=== PATIENT | male | born 1945 | race Caucasian/White ===

== ENCOUNTER 2016-12-06 13:43 | Inpatient (IN) ==
[2016-12-06] MEDS ORDERED: CeFAZolin Pre 2,000 MG/100 ML 2,000 MG/100 ML BAG IVPB ONE (14:17)
[2016-12-06] MEDS ORDERED: Lidocaine 1% 20 ML MDV ID ONE (14:17)
[2016-12-06] MEDS ORDERED: Albuterol 2.5 MG/3 ML NEBULIZER IH ONE (14:17)
[2016-12-06] MEDS ORDERED: Ringers Solution, Lactated 1,000 ML IVC SCH (14:30)
--- NOTE | 2016-12-06 14:54 | Anesthesia Evaluation PreOp ---
Date of Encounter: 12/06/16 Time of Encounter: 14:51 - Past History Planned Operation: Right total Knee revision Cardiac History: HTN, Hyperlipidemia Pulmonary History: Asthma CERTIFIED MEDICATION AIDE History: Denies Any Significant HX, Other (RA) Other Medical History: Diabetes Type II, GERD Anesthesia History: No Prior Anesthetic Complications, Past Anesthesia ( Cervical spine, GB, r. TKR, Tonsillectomy,Trigger finger, Hernia, CTR,) Alcohol Use: none Drug use: none Medications and Allergies Albuterol Sulfate [Albuterol Inhaler] 1 puff IH Q6HR PRN 01/18/16 [History] Allopurinol [Zyloprim 300 MG] 300 mg PO DAILY 01/18/16 [History] Colestipol HCl [Colestid] 1 gm PO DAILY 01/18/16 [History] Gabapentin [Neurontin] 600 mg PO TID 01/18/16 [History] Lisinopril/Hydrochlorothiazide [Zestoretic 20-12.5 mg Tablet] 1 tab PO DAILY 08/25 [History] Meloxicam [Mobic] 15 mg PO DAILY 01/18/16 [History] Metformin HCl [Glucophage] 1,000 mg PO BID 01/18/16 [History] Montelukast [Singulair] 10 mg PO HS 01/18/16 [History] Omeprazole [PriLOSEC] 40 mg PO BID 01/18/16 [History] Tramadol HCl/Acetaminophen [Ultracet Tablet] 2 each PO Q6H PRN 01/18/16 [History ] Amlodipine [Norvasc] 5 mg PO DAILY 08/21/16 [History] Aspirin 81 mg PO HS 12/06/16 [History] Glimepiride [Amaryl] 2 mg PO BID 12/06/16 [History] Allergies No Known Allergies Allergy (Verified 12/06/16 14:26) - Meds/Allergy Pre-op Review Medications Reviewed: Yes Allergies Reviewed: Yes Beta Blockers on Current Med List: No Anesthesia Results - Labs Laboratory Tests 12/03/16 12/03/16 12/03/16 11:16 11:16 11:16 WBC 7.2 Hgb 12.1 L Hct 36.6 L Plt Count 317 INR 1.0 Sodium 139 Potassium 3.8 Chloride 102 Carbon Dioxide 23 BUN 19 Creatinine 0.93 - Imaging EKG: image reviewed (SR) Anesthesia Exam O2 Sat Height 1.78 m Height 1.78 m Height 1.78 m Weight 98.883 kg Weight 98.883 kg Weight 102.058 kg O2 Sat by Pulse Oximetry 98 O2 Sat by Pulse Oximetry 98 Vital Signs Temp Pulse Resp BP Pulse Ox 98.7 F 87 18 134/82 98 12/06/16 14:43 12/06/16 14:43 12/06/16 14:43 12/06/16 14:43 12/06/16 14:43 Height: 5'10'' Weight: 218# NPO (# of Hours): > 8 hrs Pain Scale: 0 Pain Scale Used: Numeric (1 - 10) - HEENT Pupil (Motor): Pupils equal, EOMI Mallampati: II Teeth: Edentulous Denture Type: Upper: Complete, Lower: Complete Oral Opening: Greater than 3 - CERTIFIED MEDICATION AIDE LOC: Oriented CERTIFIED MEDICATION AIDE Motor: Normal RUE, Normal LUE, Normal RLE, Normal LLE, Normal Face CERTIFIED MEDICATION AIDE Sensory: Normal: RUE, LUE, RLE, LLE, Face - Cardiac Rhythm: Regular Murmur: None JVD: No Carotid Bruit: No - Pulmonary Breath Sounds: bilateral Clear Respiratory Effort: Symmetrical Anesthesia Assess/Plan ASA Score: 3 Modified Svitlana Scale for Level of Consciousness: Cooperative, oriented, and tranquil Anesthetic Plan: General, Regional (Right Fem. Nerve block) Monitoring Plan: Standard Monitors Recovery Plan: PACU
--- NOTE | 2016-12-06 14:56 | History & Physical Report ---
Date of Encounter: 12/06/16 Time of Encounter: 14:56 24 Hour HP Update - Instructions Instructions: If the History and Physical is less than 30 days old and was completed prior to A.M. admission and or procedure and has NOT been updated on calendar day of procedure please complete this update prior to performing procedure. - Update Patient reports changes in Medical Condition: No Changes in assessment/condition: No Changes in Medication: No Preop tests/diagnostics Reviewed: Yes Surgery Remains Indicated: Yes Consent for Planned Operative Procedure(s) Verified: Yes - Pre-Operative Checklist Preoperative Checklist Indicated: No Prophylactic Antibiotic Ordered: Yes Is VTE Prophylaxis Indicated?: Yes
[2016-12-06] MEDS ORDERED: Tetracaine/PF 20 MG/2 ML AMPUL SPINA ONE (15:15)
--- NOTE | 2016-12-06 15:32 | Anesthesia Procedures ---
Date of Encounter: 12/06/16 Time of Encounter: 14:50 Procedures: Anesthesia - Nerve Block Procedure Date: 12/06/16 Time: 15:30 Pre-op Diagnosis: Loosening TKA Surgical Procedure: Revision TKA Rt Checklist: Correct Patient Identifier Correct side: Right Blood Thinner: No Monitor Applied: EKG, BP, Pulse Oximetry Supplemental Oxygen via Nasal Cannula (L/min): 2 Sedation: Versed (mg): 2 Sedation: Fentanyl (mcg): 100 Indication: Post Op Analgesia Pre-op Neuro Deficits: No Block Type: Femoral Catheter placed: No Depth at skin (cm): 2 Sterile Technique: Yes Ultrasound used: Yes Anatomy identified: Yes Visual spread of Local: Yes Neuro Stimulation: Yes Nerve Stimulator Range: >0.4 - 0.6 mA Blood on Needle Aspiration: No Smooth Injection of Local: Yes Pain with Injection of Local: No Prep: Chlorhexadine Needle: 22 x 50 mm Stimuplex Local: Tetracaine (40), Other (Bupivacaine 0.5%) Volume (cc): 40 Number of Attempts: 1 Complications: None/effective block Vitals: Vital Signs/O2 Sat/Glucose, Most Current Temp Pulse Resp BP Pulse Ox 12/06/16 14:43 98.7 F 87 18 134/82 98
--- NOTE | 2016-12-06 15:47 | Discharge Summary ---
Date of Encounter: 12/09/16 Time of Encounter: 06:37 - Discharge Medications Home Medications: Albuterol Sulfate [Albuterol Inhaler] 1 puff IH Q6HR PRN 01/18/16 [History] Allopurinol [Zyloprim 300 MG] 300 mg PO DAILY 01/18/16 [History] Colestipol HCl [Colestid] 1 gm PO DAILY 01/18/16 [History] Gabapentin [Neurontin] 600 mg PO TID 01/18/16 [History] Lisinopril/Hydrochlorothiazide [Zestoretic 20-12.5 mg Tablet] 1 tab PO DAILY 08/25 [History] Meloxicam [Mobic] 15 mg PO DAILY 01/18/16 [History] Metformin HCl [Glucophage] 1,000 mg PO BID 01/18/16 [History] Montelukast [Singulair] 10 mg PO HS 01/18/16 [History] Omeprazole [PriLOSEC] 40 mg PO BID 01/18/16 [History] Tramadol HCl/Acetaminophen [Ultracet Tablet] 2 each PO Q6H PRN 01/18/16 [History ] Amlodipine [Norvasc] 5 mg PO DAILY 08/21/16 [History] Aspirin 81 mg PO HS 12/06/16 [History] Enoxaparin [Lovenox] 30 mg SQ Q12HR #20 syr 12/06/16 [Rx] Glimepiride [Amaryl] 2 mg PO BID 12/06/16 [History] OxyCODONE Immed Rel [Roxicodone 5 MG] 5 - 10 mg PO Q6HR PRN #40 tablet 12/06/16 [Rx] Allergies/Adverse Reactions: Allergies No Known Allergies Allergy (Verified 12/06/16 14:26) Labs on day of discharge: Labs from last 24 hours 12/06/16 14:28 POC Glucose 103 H Primary care physician: Carlo Lomax MD - Patient Status Disposition: Home, Self-Care Condition: Good Functional capacity at discharge: uses cane/walker Overall status at discharge: patient is progressing back to baseline - Discharge Instructions Follow Up With: Carlo Lomax MD [Primary Care Provider] - - Hospital Course Hospital course: Mr. Moncada is a 71 year old male The patient had an uneventful postoperative course. They received antibiotics and physical therapy and were discharged in stable condition. There will follow -up in the office in 2 weeks. Lovenox DVT prophylaxis - Time Spent with Patient Total time spent providing and/or coordinating discharge services:
[2016-12-06] MEDS ORDERED: *HR* Propofol 200 MG/20 ML VIAL IVP ONE ×2 (16:09→17:29)
[2016-12-06] MEDS ORDERED: *HR* FentaNYL (PF) 100 MCG/2 ML VIAL ONE ×2 (16:09→16:20)
[2016-12-06] MEDS ORDERED: *HR* Midazolam HCl 2 MG/2 ML VIAL ONE (16:09)
[2016-12-06] MEDS ORDERED: Dexamethasone 4 MG/ML VIAL ONE (16:58)
[2016-12-06] MEDS ORDERED: Ondansetron 4 MG/2 ML VIAL ONE (16:58)
--- NOTE | 2016-12-06 17:58 | Orthopedic Operative Note ---
Date of procedure: 12/06/16 Pre-op diagnosis: Painful hardware of right leg Post-op diagnosis: same Procedure: Procedure: Right revision tibial component Estimated blood loss: 300 cc Hardware: Biomet 71 tibia, xs sleeve, [id number] 14 constrained poly Exam Under anesthesia: Full flexion full extension well-healed incision no swelling or erythema no varus valgus instability Operative procedure: The patient was brought to the operating room and placed on the operating room table. After general anesthesia was administered the operative knee was examined. Findings were noted in the exam under anesthesia. The operative extremity was prepped and draped in sterile surgical fashion. The patient received IV antibiotics prior to skin incision. A standard midline incision was made centered over the patella. The incision was made through the skin and subcutaneous tissue through the old incision. A medial parapatellar tendon approach was performed. Care was taken to preserve tissue along the medial aspect of the patella. And to protect the patella tendon. The deep MCL was released off the medial tibia. The infra patella fat pad was excised. Cultures were obtained as well as Gram stain. The knee was brought into flexion the tibial poly-was removed. The femur was well fixed. Attention was then turned to the tibial component. The tibial component was disruppted with an osteotome and osscilating, it was removed without incident. The tibia was reamed with fluroscopic guidance up to a [id number]. The tibia was then broached to a XS sleeve. and a 71 tibia. Trial had good fit and fixation. Trial reduction revealed full extension and full flexion no varus valgus instability with an 14 constrained poly. Trial components removed knee sat for 2 minutes with a Betadine saline solution. It was irrigated out with pulse irrigation. Components were assembled on the back table. The tibia cemented. The 14 Blanca was seated and secure. The knee had full flexion and full extension and excellent patella tracking no varus valgus instability. After the cement hardened the knee was irrigated out again. The knee was taken through a range of motion had excellent patella tracking. The extensor mechanism was closed with a running #2 Fiberwire suture and a running #2 PDS suture. The deep tissue was irrigated and closed deep with #1 PDS suture superficially with 0 PDS suture. The skin was closed with Dermabond and skin oma. The patient was placed in a sterile dressing and postoperative brace. They were extubated and transferred to recovery room in stable condition. Anesthesia: GETA Surgeon: Jose J Abbott Condition: stable Disposition: PACU
[2016-12-06] MEDS ORDERED: *HR* Enoxaparin 30 MG/0.3 ML SYRINGE SQ SCH (18:00)
[2016-12-06] MEDS: *HR* HYDROmorphone (PF) 1 MG/ML SYRINGE IVP PRN ×2 (18:06→18:19)
[2016-12-06 18:27] LABS: Hematocrit 33.2 % (37.5-50.1); Hemoglobin 10.8 g/dL (12.9-16.9)
--- NOTE | 2016-12-06 18:40 | Anesthesia Evaluation Post Op ---
Date of Encounter: 12/06/16 Time of Encounter: 18:40 - Vital Signs Vital Signs: Vital Signs/O2 Sat/Glucose, Most Current Temp Pulse Resp BP Pulse Ox 12/06/16 18:31 84 16 130/76 98 12/06/16 18:21 89 16 135/83 94 L 12/06/16 18:11 97.2 F L 92 16 138/83 93 L 12/06/16 18:01 101 18 142/87 92 L 12/06/16 17:51 97 18 134/82 96 12/06/16 17:41 97.0 F L 96 16 134/82 96 12/06/16 14:43 98.7 F 87 18 134/82 98 - Lungs Lungs: Clear Ascult./Percussion - Airway Airway: Non-obstructed - Cardiovascular Regular Rate - Mental Status Mental Status: Alert & Oriented, Answers Appropriately - Pain Pain Scale: 0 - Nausea Vomiting Nausea Vomiting: Not Present - Hydration Hydration: Ice chips - Discharge PostOp Status: Transfer Patient to floor
[2016-12-06] MEDS ORDERED: *HR* HYDROmorphone (PF) 1 MG/ML SYRINGE IVP PRN (19:12)
[2016-12-06] MEDS ORDERED: *HR* Dextrose 50 % in Water (Syg) 50 ML SYRINGE IVP PRN (19:12)
[2016-12-06] MEDS ORDERED: TRAMADOL HCL PO PRN (19:12)
[2016-12-06] MEDS ORDERED: MOM Conc 10 ML UD.LIQ PO PRN (19:12)
[2016-12-06] MEDS ORDERED: Sennosides 8.6 MG TABLET PO PRN (19:12)
[2016-12-06] MEDS ORDERED: Ondansetron 4 MG/2 ML VIAL IVP PRN (19:12)
[2016-12-06] MEDS ORDERED: Dextrose Gel 15 GM PO PRN ×2 (19:12)
[2016-12-06] MEDS ORDERED: Temazepam 15 MG CAPSULE PO PRN (19:12)
[2016-12-06] MEDS ORDERED: [UNRECOGNIZED DRUG - OTHER] PO PRN (19:12)
[2016-12-06] MEDS ORDERED: Naloxone 0.4 MG/ML INJ IVP PRN (19:12)
[2016-12-06] MEDS ORDERED: ACETAMINOPHEN PO PRN (19:12)
[2016-12-06] MEDS ORDERED: D5% in Water 1,000 ML IV PRN (19:12)
[2016-12-06] MEDS ORDERED: Acetaminophen 325 MG TABLET PO PRN ×2 (19:12→19:38)
[2016-12-06] MEDS ORDERED: traMADol 50 MG TABLET PO PRN (19:38)
[2016-12-06] MEDS: *HR* Metformin 500 MG TABLET PO SCH (20:51)
[2016-12-06] MEDS: Gabapentin 300 MG CAPSULE PO SCH (20:51)
[2016-12-06] MEDS: Aspirin 81 MG TAB.CHEW PO SCH (20:52)
[2016-12-06] MEDS: *HR* Glimepiride 2 MG TABLET PO SCH (20:52)
[2016-12-06] MEDS: Insulin LISPRO 300 UNITS/3 ML VIAL SQ SCH (20:52)
[2016-12-06] MEDS: Ringers Solution, Lactated 1,000 ML IVC SCH (20:53)
[2016-12-06] MEDS: ceFAZolin 2,000 MG in D5% in Water 100 ML IVPB SCH (23:22)
[2016-12-07] MEDS: *HR* OxyCODONE Immed Rel 5 MG TABLET PO PRN ×5 (02:57→23:03)
[2016-12-07 06:13] LABS: Hematocrit 31.4 % (37.5-50.1); Hemoglobin 10.5 g/dL (12.9-16.9)
[2016-12-07 06:19] LABS: BUN/Creatinine Ratio 15 (6-26); Blood Urea Nitrogen 14 mg/dL (8-26); Calcium 8.6 mg/dL (8.6-10.8); Carbon Dioxide 23 mEq/L (19-29); Chloride 103 mEq/L (98-109); Glucose 188 mg/dL (70-99); Osmolality,Calculated 291 (280-300); Sodium 138 mEq/L (136-145); eGFR For African Americans > 60 (> 60); eGFR For Non-African Americans > 60 (> 60)
[2016-12-07] MEDS: *HR* Enoxaparin 30 MG/0.3 ML SYRINGE SQ SCH ×2 (06:43→17:35)
[2016-12-07] MEDS: ceFAZolin 2,000 MG in D5% in Water 100 ML IVPB SCH (06:44)
[2016-12-07] MEDS: Insulin LISPRO 300 UNITS/3 ML VIAL SQ SCH ×3 (07:44→17:22)
[2016-12-07] MEDS: *HR* Glimepiride 2 MG TABLET PO SCH ×2 (09:23→20:23)
[2016-12-07] MEDS: Lisinopril-HCTZ 20-12.5mg TABLET PO SCH (09:23)
[2016-12-07] MEDS: amLODIPine 5 MG TABLET PO SCH (09:23)
[2016-12-07] MEDS: *HR* Metformin 500 MG TABLET PO SCH ×2 (09:24→20:23)
[2016-12-07] MEDS: Gabapentin 300 MG CAPSULE PO SCH ×3 (09:24→20:23)
[2016-12-07] MEDS: Colestipol Hcl [Colestid] 1 GM PO SCH (09:25)
--- NOTE | 2016-12-07 14:44 | Orthopedics Progress Note ---
Date of Encounter: 12/07/16 Time of Encounter: 14:42 Subjective Principal diagnosis: Right knee painful hardware Interval history: Patient is comfortable without new complaints Right lower extremity: Hinge knee brace intact, locked in full extension Dressings are clean dry intact Bilateral calves soft and nontender Neurovascularly intact distally PLAN Continue elevation Continue OT/PT Objective Vital signs: Vital Signs Temp Pulse Resp BP Pulse Ox 12/07/16 10:14 98.5 F 91 16 104/67 98 12/07/16 09:21 94 105/62 99 12/07/16 04:24 98.3 F 88 12 95/68 97 12/06/16 23:20 99.0 F 100 14 132/81 97 12/06/16 22:22 99.2 F 100 12 132/81 95 12/06/16 21:05 98.9 F 100 12 148/81 96 12/06/16 19:50 99.0 F 95 12 144/82 95 12/06/16 19:32 99.1 F 92 16 144/82 12/06/16 19:20 99.0 F 94 12 117/56 95 12/06/16 18:54 99.3 F 88 16 151/78 93 L 12/06/16 18:41 97.2 F L 88 16 137/87 97 12/06/16 18:31 84 16 130/76 98 12/06/16 18:21 89 16 135/83 94 L 12/06/16 18:11 97.2 F L 92 16 138/83 93 L 12/06/16 18:01 101 18 142/87 92 L 12/06/16 17:51 97 18 134/82 96 12/06/16 17:41 97.0 F L 96 16 134/82 96 12/06/16 14:43 98.7 F 87 18 134/82 98 Intake and Output 12/06/16 12/07/16 12/07/16 23:59 07:59 15:59 Intake Total 1200 / 1200 Output Total 825 / 825 300 / 300 Balance -825 / -825 900 / 900 Intake: IV Fluids 1200 / 1200 Lactated Ringers 1,000 ML 1000 / 1000 @ 75 mls/hr IVC .[id number] [facility] Rx#:[id number] Ancef 2,000 MG In 200 / 200 Dextrose 5% 100 ML @ 200 mls/hr IVPB Q[facility]H [facility] Rx#: [id number] Output: Urine 525 / 525 300 / 300 Estimated Blood Loss 300 / 300 Other: Blood Glucose* 144 126 Incision: clean and dry - Labs CBC & BMP: 12/08/16 04:34 12/08/16 04:34 Labs: Abnormal lab results Hgb 10.5 g/dL (12.9-16.9) L 12/07/16 05:03 Hct 31.4 % (37.5-50.1) L 12/07/16 05:03 Glucose 188 mg/dL (70-99) H 12/07/16 05:03 POC Glucose 144 (58-89) H 12/06/16 20:28 - VTE Documentation of Mechanical Device: Venous foot pump, device Consult Discharge Plan - Plan Referrals: Carlo Lomax MD [Primary Care Provider] - Plan Additional Instructions: Perineal Care: Always wipe front to back Change your pad frequently Use your yu bottle with warm water and spray front to back Do not douche, use tampons, have sexual intercourse or put anything in your vagina for 4-6 weeks after delivery Bleeding: Vaginal bleeding can last up to 6 weeks Your menstrual period may return as early as 6 weeks after you are discharged from the hospital Rawlins/Stitches Care: Vaginal Delivery Vaginal stitches will dissolve within 4-6 weeks Follow perineal care instructions Care Stitches will dissolve on their own If you have oma, they will need to be removed in the doctors office within 5-7 days. You may shower with stitches or oma Drip plan or soapy water over the incision to clean. Pat dry gently with a clean towel. Make sure you completely dry under the skin folds DO NOT USE powders, lotions, rubbing alcohol or hydrogen peroxide on or around your incision. This will slow your wound healing It is normal to have soreness, burning, tingling, itchiness and/or numbness as your incision heals Breast Care: moms: Your breasts may change in size. Wearing a well-fitted bra (with no underwire) day and night may be more comfortable as your body adjusts to these changes Wash breasts with warm water only. Do not use soap or lotion on you nipples should not make your nipples sore. Soreness may be an indication of an incorrect latch If you have nipple pain, open cracks or nipple bleeding, you need to contact a weight loss sales consultant or your physician Bottle Feeding moms: Avoid nipple stimulation, such as a shirt or gown rubbing against them If your breasts become uncomfortable you can try the following: Wear a well-fitting support bra with no underwire day and night until your body adjusts. Lay on your back to elevate the breasts Apply ice packs or frozen bags of vegetables to your breasts for 10- [address] cold clean cabbage leaves on your breast. Change them as they become warm and wilted Activity: Rest frequently Do not lift anything heavier than the baby, up to 10-15 pounds No driving for 1-2 weeks for Vaginal delivery No driving for 2-4 weeks for delivery Take stairs slowly, one at a time Gradually increase your daily activity until you are back to your normal routine Do not exercise until you have had your follow-up appointment Bathing: Take a shower daily Do not take a tub bath for the first 4 weeks Diet: Drink plenty of water and fruit juices Eat a well-balanced diet with foods high in fiber such as fruits and vegetables Breast feeding moms: You will burn approximately 500 calories per day by exclusively . Increase the calories that you will eat by 500-1000 Limit caffeine to 2 or less per day You will need 1,200 mg of calcium per day Depression: Your hormones have a major impact on your feelings and emotions. Hormone imbalance may cause changes in your mood, creating unfamiliar thoughts and actions. Support is available to help you understand and cope with these feelings and mood changes. If you answer yes to any of the following questions, please call your health care provider: Are you having trouble sleeping? Are you feeling isolated? Have you lost your appetite? Are you having thoughts of hurting yourself or your baby? WARNING SIGNS: Heavy bleeding from the vagina (blood is bright red and soaks a sanitary pad in an hour or less.) Passing a blood clot larger than your fist Discharge from the vagina that has a bad odor Temperature over 100.4 F, or if you feel cold and have chills An episiotomy site that is warm, swollen or oozing. Use a mirror if needed Urination (pee) that is painful, very red and swollen or leaking fluid An incision that is painful, very red and swollen and leaking fluid An incision that has come open Breasts that are painful or full with flu like symptoms Redness, warmth or swelling in the calf of your leg Trouble breathing, dizziness, visual disturbance or faintness *Notify your health care provider immediately or go to the nearest Emergency Room if you experience any of the above signs.* To contact the nurses station 24 hours a day, For non-urgent, routine questions, please call the office at Provider discharge summary: Activity: [] Diet: [] Wound Care: [] Special Instructions: [] Follow up with: Carlo Lomax MD [Primary Care Provider] -
[2016-12-07] MEDS: Aspirin 81 MG TAB.CHEW PO SCH (20:23)
[2016-12-07] MEDS: Ringers Solution, Lactated 1,000 ML IVC SCH (23:06)
[2016-12-08] MEDS: *HR* OxyCODONE Immed Rel 5 MG TABLET PO PRN ×4 (04:49→22:43)
[2016-12-08 04:51] LABS: Hemoglobin 10.5 g/dL (12.9-16.9)
[2016-12-08 05:11] LABS: BUN/Creatinine Ratio 16 (6-26); Blood Urea Nitrogen 14 mg/dL (8-26); Calcium 8.9 mg/dL (8.6-10.8); Carbon Dioxide 24 mEq/L (19-29); Chloride 101 mEq/L (98-109); Glucose 128 mg/dL (70-99); Osmolality,Calculated 288 (280-300); Potassium 3.5 mEq/L (3.5-4.5); Sodium 138 mEq/L (136-145); eGFR For African Americans > 60 (> 60); eGFR For Non-African Americans > 60 (> 60)
[2016-12-08] MEDS: *HR* Enoxaparin 30 MG/0.3 ML SYRINGE SQ SCH ×2 (06:56→17:12)
[2016-12-08] MEDS: Insulin LISPRO 300 UNITS/3 ML VIAL SQ SCH ×3 (08:33→17:12)
[2016-12-08] MEDS: Lisinopril-HCTZ 20-12.5mg TABLET PO SCH (08:39)
[2016-12-08] MEDS: *HR* Glimepiride 2 MG TABLET PO SCH ×2 (08:39→20:48)
[2016-12-08] MEDS: amLODIPine 5 MG TABLET PO SCH (08:39)
[2016-12-08] MEDS: Gabapentin 300 MG CAPSULE PO SCH ×3 (08:39→20:48)
[2016-12-08] MEDS: *HR* Metformin 500 MG TABLET PO SCH ×2 (08:40→20:48)
[2016-12-08] MEDS: Colestipol Hcl [Colestid] 1 GM PO SCH (10:56)
--- NOTE | 2016-12-08 13:30 | Orthopedics Progress Note ---
Date of Encounter: 12/08/16 Time of Encounter: 13:29 Subjective Principal diagnosis: Right knee painful hardware Interval history: Patient is comfortable without new complaints Right lower extremity: Hinge knee brace intact, locked in full extension Dressings are clean dry intact Bilateral calves soft and nontender Neurovascularly intact distally Continue OT/PT Continues use of brace Discharge planning for tomorrow Objective Vital signs: Vital Signs Temp Pulse Resp BP Pulse Ox 12/08/16 11:21 99.5 F 106 18 122/63 98 12/08/16 06:39 98.7 F 89 16 124/87 98 12/08/16 04:45 98.7 F 99 12/07/16 23:07 99.1 F 112 20 122/84 93 L 12/07/16 20:28 100.4 F H 118 20 118/63 94 L 12/07/16 16:52 100.4 F H 106 18 107/62 96 Intake and Output 12/07/16 12/08/16 12/08/16 23:59 07:59 15:59 Intake Total 1000 / 1000 Output Total 175 / 175 100 / 100 Balance 825 / 825 -100 / -100 Intake: IV Fluids 1000 / 1000 Lactated Ringers 1,000 ML 1000 / 1000 @ 75 mls/hr IVC .[id number] [facility] Rx#:[id number] Output: Urine 175 / 175 100 / 100 Other: Blood Glucose* 184 103 202 Incision: clean and dry - Labs CBC & BMP: 12/09/16 04:37 12/08/16 04:34 Labs: Abnormal lab results Hgb 10.5 g/dL (12.9-16.9) L 12/08/16 04:34 Hct 32.0 % (37.5-50.1) L 12/08/16 04:34 Glucose 128 mg/dL (70-99) H 12/08/16 04:34 POC Glucose 184 (58-89) H 12/07/16 19:41 - VTE Documentation of Mechanical Device: Venous foot pump, device Consult Discharge Plan - Plan Additional Instructions: Discharge Instructions: Total Knee Replacement Please call [facility] ([phone]), your Primary Care Physician, or report to the Emergency Room if you have any of the following symptoms: Nausea, vomiting, fever greater that 101.5, swelling, chest pain, shortness of breath, increased pain/redness/drainage/odor for your incision site, numbness/ tingling, or any other concerning symptoms. ACTIVITY:Weight-bearing as tolerated. You may progress off support (cruthches or walker) as tolerated. MEDICATIONS: Upon discharge resume your home medications. Take all the medications as prescribed. Take a stool softener if taking narcotic pain medications. Stool softeners are only effective if you drink enough fluids. Drink 6-8 glass of water or fluids a day, unless this is not allowed for another health problem. Despite using stool softeners, if you haven't had a bowel movement in 3 days, please switch to a gentle laxative. Gentle laxatives are sold over the counter. You should have a bowel movement within 24 hours, if not call the office. You will be discharged from the hospital with a prescription for pain medication. You are encouraged to decrease the use of narcotic pain medication as tolerated. Should you require a refill, please call the office. [facility] prescribes narcotic pain medication for only 4-6 weeks after surgery. If you require pain medication beyond this time periord, you may be referred to your Primary Care Physician or to the Pain Clinic for further evaluation. Plan ahead for refills on pain medication as many narcotics either need to be picked up at the office or mailed. It is best to call 48-72 hours in advance of needing a prescription refill so you don't run out of medication. To help control the post-operative pain, you may take NSAIDs (Aleve,Advil, Motrin, ibuprofen, naprosyn) or Tylenol as prescribed on the bottle in addition to the pain medication. ANTICOAGULATION (blood thinners): Continue your Aspirin, Lovenox or Coumadin as prescribed to help prevent a blood clot in the leg or in the lungs. As long as your incision remains dry and you tolerate the NSAIDs (Aleve, Advil, Motrin, ibuprofen, naprosyn), it is OK to use the NSAIDS while you are taking your anticoagulation medication. Should your incision start to drain, stop the NSAID and contact our office. Common symptoms of blood clot in the legs include: localized pain, swelling, calf tenderness, redness or discoloration of the skin. Blood clot in the lung symptoms include: shortness of breath, rapid pulse, sweating, and chest pain that worsens with deep breathing, coughing up blood, lightheadedness, feelings of anxiety. If you experience any of these symptoms notify your physician immediately, go to the emergency room, or if having trouble breathing, call 911. WOUND CARE: Leave the dressing on for 7 days. You may change the dressing if it becomes saturated greater than 50%. You can shower but not a tub bath or submerge your incision in water. Wash your hands with antibacterial soap, rinse and dry prior to any wound care. If you have oma the visiting nurse or rehab facility can remove the stapes 10-14 days after surgery and place steri- strips across the wound. Leave the steri-strips in place until they fall off on their won. You may let water from the shower run on top of the steri-stirips. If you do not have a visiting nurse or rehab facility, you will need to return to the office at 10-14 days for the oma to be removed. FOLLOW-UP: Please follow up with your surgeon in the orthopedic clinic in 4 weeks from the day of surgery. If you have oma that need to be removed, you will need to come back to the office in 10-14 days from the day of surgery. Referrals: Carlo Lomax MD [Primary Care Provider] - Jose J Abbott MD [Partnered Physician] - 12/17/16 2:30 pm
[2016-12-08] MEDS: Aspirin 81 MG TAB.CHEW PO SCH (20:48)
[2016-12-08] MEDS: Ringers Solution, Lactated 1,000 ML IVC SCH (22:41)
[2016-12-09] MEDS: Ringers Solution, Lactated 1,000 ML IVC SCH (05:25)
[2016-12-09] MEDS: *HR* Enoxaparin 30 MG/0.3 ML SYRINGE SQ SCH (06:17)
[2016-12-09 06:23] LABS: Hematocrit 31.4 % (37.5-50.1); Hemoglobin 10.3 g/dL (12.9-16.9)
[2016-12-09] MEDS: *HR* OxyCODONE Immed Rel 5 MG TABLET PO PRN (06:28)
--- NOTE | 2016-12-09 06:39 | Orthopedics Progress Note ---
Date of Encounter: 12/09/16 Time of Encounter: 06:38 Subjective Principal diagnosis: Right knee painful hardware Interval history: Patient was seen this morning doing well without complaints. Afebrile vital signs stable. Operative extremity: Neurovascularly intact Dressing clean dry and intact Calves nontender Assessment and plan: Continue with postoperative care Discharge today Objective Vital signs: Vital Signs Temp Pulse Resp BP Pulse Ox 12/08/16 23:26 97.6 F 103 18 110/67 95 12/08/16 20:23 99.6 F 112 18 112/76 93 L 12/08/16 14:03 104 16 127/68 99 12/08/16 11:21 99.5 F 106 18 122/63 98 12/08/16 06:39 98.7 F 89 16 124/87 98 Intake and Output 12/08/16 12/08/16 12/09/16 15:59 23:59 07:59 Intake Total 275 / 275 125 / 125 Output Total 675 / 675 Balance 275 / 275 -550 / -550 Intake: Oral 275 / 275 125 / 125 Output: Urine 675 / 675 Other: Blood Glucose* 202 166 - Labs CBC & BMP: 12/09/16 04:37 12/08/16 04:34 Labs: Abnormal lab results Hgb 10.3 g/dL (12.9-16.9) L 12/09/16 04:37 Hct 31.4 % (37.5-50.1) L 12/09/16 04:37 Glucose 128 mg/dL (70-99) H 12/08/16 04:34 POC Glucose 184 (58-89) H 12/07/16 19:41 - VTE Documentation of Mechanical Device: Venous foot pump, device Consult Discharge Plan - Plan Referrals: Carlo Lomax MD [Primary Care Provider] -
[2016-12-09 06:40] VITALS: BP 147/78
[2016-12-09] MEDS: Insulin LISPRO 300 UNITS/3 ML VIAL SQ SCH (07:31)
== END 2016-12-09 09:45 | disposition home or self-care (01) | DRG 468 ==
LOC: SAMDAY 13:43 → 3NENU 18:51
PROVIDERS: ADMIT Orthopaedic Surgery; ATTEND Orthopaedic Surgery

== ENCOUNTER 2017-04-11 08:25 | Inpatient (IN) ==
--- NOTE | 2017-04-11 09:04 | Pre-Sedation Evaluation ---
Pre-sedation evaluation - Pre-sedation checklist Date of procedure: 04/11/17 Procedure: [facility] Recent Vitals: VS as documented in EMR H&P (including ROS) documented in medical record: Yes Previous reaction to sedatives/anesthetics: No Dietary Status: NPO after Midnight Airway Assessment: Patient can open mouth completely, TMJ function normal ASA Classification *see protocol: CLASS II-Mild systemic disease Plan of Care: Pt appropriate candidate for procedure/moderate/conscious sedation , Risks/benefits of procedure/sedation discussed w/ patient/family
--- NOTE | 2017-04-11 09:06 | History & Physical Report ---
Date of Encounter: 04/11/17 Time of Encounter: 09:00 24 Hour HP Update - Instructions Instructions: If the History and Physical is less than 30 days old and was completed prior to A.M. admission and or procedure and has NOT been updated on calendar day of procedure please complete this update prior to performing procedure. - Update Patient reports changes in Medical Condition: No Changes in examination, assessment, or condition: No Changes in Medication: No Preop tests/diagnostics Reviewed: Yes Surgery Remains Indicated: Yes Consent for Planned Operative Procedure(s) Verified: Yes
[2017-04-11] MEDS: 0.9 % Sodium Chloride 1,000 ML IVC SCH ×2 (09:39→21:22)
[2017-04-11] MEDS ORDERED: 0.9 % Sodium Chloride 1,000 ML ONE (10:07)
[2017-04-11] MEDS ORDERED: *HR* Heparin 10,000 UNIT/10 ML VIAL ONE (10:07)
[2017-04-11] MEDS ORDERED: Verapamil 5 MG/2 ML VIAL ONE (10:07)
[2017-04-11] MEDS ORDERED: Heparin 1,000 UNITS/500 mL NS 500 ML ONE (10:07)
[2017-04-11] MEDS ORDERED: Nitroglycerin 1,000 MCG/10 ML VIAL IV ONE (10:07)
[2017-04-11] MEDS ORDERED: *HR* Midazolam HCl 5 MG/5 ML VIAL IVP ONE (10:15)
[2017-04-11] MEDS ORDERED: *HR* FentaNYL (PF) 100 MCG/2 ML VIAL ONE (10:15)
--- NOTE | 2017-04-11 11:19 | Invasive Diagnostic Lab Proc ---
Name: Jovi Moncada Date of Study: 04/11/2017 Date: 1945 Ht: 70.0in Medical Record#: [id number] Age: 72 Wt: 233.47lb Gender: Male BSA: 2.23 Order #: [id number] BMI: 33.5 Physicians Procedure Physician: [facility] Referring MD: Carlo Lomax MD Referring MD: Staff Name [facility]-Op Nurse 09:35 AM Sophie Webber RN Pre-Op Nurse 09:35 AM Maddie Parada RT (R) Monitor 10:16 AM Jessica Moreland RN Animal Care Provider 10:16 AM Olena Vela RT Scrub 10:16 AM Indications Indication Abnormal Test - Stress Procedures Performed Procedure L HRT ARTERY/VENTRICLE ANGIO Pre-Procedure Checklist Informed consent is complete signed and on chart. H\\T\\P is on chart. ID band is on and ID verified with patient. Patient NPO for procedure The procedure was described for the patient and questions were answered. Blood Pressure: 134/85 ECG is on chart. Rhythm: NSR Plan of Care Patient will tolerate the procedure without complications. Adequate level of comfort will be maintained. Hemodynamics will remain stable Patient will recover from procedure without complications. Respiratory function will be maintained. Cardiac rhythm will remain stable. Patient temperature will be maintained. Patient and/or family have verbalized understanding of the procedure. Patient Education Chief Complaint/Reason for Test: Cardiac Cath Developmental Category: Geriatric (65+ years) Developmentally Appropriate for Age: Yes Learning Barriers: None Education Needs: Procedure Education Method: Verbal Information Taught: Cardiac Cath Educational Evaluation: Able to repeat information Intravenous Access Time IV Size Location DC'd Fluid/Drip Rate Units RN 09:32 AM Started with 20g 1 1/4" Lt Antecubital 0.9NaCl 50 ml/hr Sophie Webber RN Allergies No Known Allergies Vital Signs Time BP (mmHg) HR (bpm) O2 Sat. RR (bpm) LOC 09:34 AM 134 / 85 70 97 % 16 5 = Fully awake and oriented or at pre-proc level 10:17 AM / % 5 = Fully awake and oriented or at pre-proc level 10:17 AM / % 5 = Fully awake and oriented or at pre-proc level 10:32 AM / % 5 = Fully awake and oriented or at pre-proc level 10:20 AM 166 / 91 69 99 % 16 10:24 AM 159 / 90 64 98 % 9 10:29 AM 151 / 82 62 98 % 31 10:34 AM 150 / 94 65 98 % 19 10:39 AM 145 / 84 63 98 % 31 10:44 AM 157 / 84 73 98 % 7 10:49 AM 153 / 91 70 98 % 9 10:47 AM / % 5 = Fully awake and oriented or at pre-proc level Procedural Medications Time Medication Dose Units Method Given By 10:20 AM Versed 2 mg Intravenous Jessica Moreland RN 10:20 AM Fentanyl 50 mcg Intravenous Jessica Moreland RN 10:35 AM Lidocaine 2% 15 ml Subcutaneous Carlos Mays MD, FACC 10:48 AM Versed 1 mg Intravenous Jessica Moreland RN 10:48 AM Fentanyl 25 mcg Intravenous Jessica Moreland RN 10:28 AM Oxygen 2 L/min nasal cannula Jessica Moreland RN ASA Classification: CLASS II- Mild systemic disease (i.e. well-controlled diabetes, hypertension, asthma, cigarette smoking) Breanna Score Preprocedure Postprocedure Activity 2- Moves 4 extremities sustained head lift Activity 2- Moves 4 extremities sustained head lift Circulation 2- SBP +/= 20 points of pre-anesthetic level Circulation 2- SBP +/= 20 points of pre-anesthetic level Consciousness 2- Awake and alert oriented x 3 Consciousness 2- Awake and alert oriented x 3 O2 Saturation 2- Able to maintain O2 satruation of 92% on room air O2 Saturation 2- Able to maintain O2 satruation of 92% on room air Respiratory 2- Able to deep breathe and cough well Respiratory 2- Able to deep breathe and cough well Total Score 10 Total Score 10 Contrast Agent: Isovue Diagnostic Contrast: 56 ml Total Contrast: 56 ml Fluoro Dose: 278 mGy Procedure Log Time Note Enter By 10:14 AM Case Start 10:14 AM CathStat 10:15 AM Procedure start 10:15 dspellman 10:15 AM Pt arrived to laboratory operations coordinator 2 at 10:15 dspellman 10:15 AM Physician arrived 10:15 dspellman 10:15 AM Orestes and gloria completed dspellman 10:16 AM Sign in performed according to hospital policy. dspellman 10:16 AM Case Delayed No dspellman 10:16 AM Maddie Parada RT (R) Position: Monitor Time in: :16 10:16 AM Jessica Moreland RN Position: Animal Care Provider Time in: 10:16 10:16 AM Olena Vela RT Position: Scrub Time in: 10:16 dspell 10:16 AM Patient charges- Angio tray pack, Navilyst 3mm J, Pulse Oximetry and ACIST tubing and transducer dspell 10:16 AM IV Supplies used: J loop Angio Cath. : AM Time: : Patient comfortable and pain free: Yes AM Time: 10:17LOC: 5 = Fully awake and oriented or at pre-proc level dspell 10:18 AM Vitals capture started with the following parameters, Patient=Adult, Interval=5 min, Initial Ymfibucx=525 mmHg, Deflation Rate=5 mmHg, Cuff placed on Right Arm 10:20 AM HR=69 bpm, EEVV=402/91 mmhg, SpO2=99.0 %, Resp=16 B/min, Comment=NSR 10: AM Time: 10: Versed 2 mg Intravenous Given by Jessica Moreland RN [facility] 10: AM Time: 10:20 Fentanyl 50 mcg Intravenous Given by Jessica Moreland RN [facility] 10:23 AM Hair removed from procedure site in holding area using clippers. Bilateral groin prepped with Chloraprep by Sophie Webber RN, safety strap applied then patient was draped. Skin intact. ell 10:24 AM Clinical Presentation: Unstable angina dspell 10:24 AM HR=64 bpm, BGKC=257/90 mmhg, SpO2=98.0 %, Resp=9 B/min, Comment=NSR 10: AM Time: 10: Oxygen on at 2 L/min per nasal cannula by Jessica Moreland RN [facility] 10: AM HR=62 bpm, MKPE=921/82 mmhg, SpO2=98.0 %, Resp=31 B/min, Comment=NSR 10:32 AM Time: :17 Patient comfortable and pain free: Yes ell 10:32 AM Time: 10:17LOC: 5 = Fully awake and oriented or at [facility]-proc [facility] 10:34 AM Time out performed according to hospital policy dspellman 10:34 AM HR=65 bpm, TSBW=815/94 mmhg, SpO2=98.0 %, Resp=19 B/min, Comment=NSR 10:36 AM Time: 10:35 15 ml Lidocaine 2% to right groin Subcutaneous Given by Carlos Mays MD, [facility] dspellman 10:37 AM Access obtained by percutaneous puncture. 5Fr 10cm Terumo [place] sheath placed in right Femoral artery. [id number] dspellman 10:37 AM 5Fr FL 4 catheter inserted over the wire [facility] dspellman 10:39 AM HR=63 bpm, CTGA=877/84 mmhg, SpO2=98.0 %, Resp=31 B/min, Comment=NSR 10:40 AM 0.035 145cm Navilyst 3mmJ wire [id number] dspellman 10:40 AM Catheter removed dspellman 10:41 AM Recorded Pressure: Ao, HR=66, Condition=Condition 1 (Aorta) Ao 137/74/101 10:41 AM LCA angiography performed in multiple views. dspellman 10:41 AM 5Fr FR 4 catheter inserted over the wire [facility] dspellman 10:42 AM Lesion found in Proximal LAD. Pre Stenosis: 70 Pre RUTHIE Flow: dspellman 10:42 AM Lesion found in Mid LAD. Pre Stenosis: 95 Pre RUTHIE Flow: dspellman 10:42 AM Lesion found in Mid Circumflex. Pre Stenosis: 90 Pre RUTHIE Flow: dspellman 10:43 AM RCA angiography performed in multiple views. dspellman 10:43 AM Catheter removed dspellman 10:43 AM 5Fr Pigtail catheter inserted over the wire [facility] dspellman 10:43 AM Catheter selectively placed in left ventricle dspellman 10:43 AM Bolus angiogram of left Ventricle complete: 10 ml/sec for a total of 20 mls dspellman 10:43 AM Recorded Pressure: LV, HR=77, Condition=Condition 1 (Left Ventricle) LV 146/5/20 10:44 AM HR=73 bpm, XXPJ=791/84 mmhg, SpO2=98 %, Resp=7 B/min 10:44 AM Recorded Pressure: LV, Ao, HR=76, Condition=Condition 1 (Left Ventricle) LV 147/8/26, (Aorta) Ao 142/78/106 10:44 AM Catheter removed dspellman 10:45 AM Recorded Pressure: Ao, HR=80, Condition=Condition 1 (Aorta) Ao 143/59/88 10:46 AM Coronary Dominance: right dspellman 10:46 AM Proximal Left Anterior Descending Coronary Artery with 70% stenosis. If graft is supplying this territory, 0 % stenosis. dspellman 10:47 AM Mid/Distal Left Anterior Descending Coronary Artery and diagonal branches with 95% stenosis. If graft is supplying this area, 0 % stenosis dspellman 10:47 AM Time: 10:32 Patient comfortable and pain free: Yes dspellman 10:47 AM Circumflex, Obtuse Marginal, Left Posterior Descending, and Left Posterolateral Coronary Arteries with 90 % stenosis. If graft is supplying this area, 0 % stenosis dspellman 10:47 AM Right Coronary, Right Posterior Descending Arteries with Right Posterolateral and Acute Marginal branches with 100 % stenosis. If graft is supplying this area, 0 % stenosis dspellman 10:47 AM Time: 10:32LOC: 5 = Fully awake and oriented or at pre-proc level dspellman 10:48 AM Time: 10:48 Versed 1 mg Intravenous Given by Jessica Moreland RN dspelldavis 10:48 AM Time: 10:48 Fentanyl 25 mcg Intravenous Given by [facility] 10:48 AM Procedure completed at 10:48 dspellman 10:49 AM Sign out completed: Radiation Dose 277.68 mGy Fluoro Time: 1.7 Isovue 370 - 200ml contrast 56 ml given by Carlos Mays MD, [facility]. Complications: NoneCardiac Rehab Consult needed: YesConfirmed administered medications: Yes dspellman 10:49 AM Isovue 370 - 200ml,1 Bottle(s) used. dspellman 10:49 AM HR=70 bpm, WQOT=163/91 mmhg, SpO2=98.0 %, Resp=9 B/min, Comment=NSR 10:50 AM Arterial sheath pulled, Mynx closure device used and was Successful [id number] S/N. dspellman 10:52 AM Post ECG NSR dspellman 10:52 AM Post Blood Pressure 153/91 dspellman 10:52 AM 10:52 Post Pulses Bilateral DP \\T\\ PT Doppler dspellman 10:52 AM Information taught Cardiac Cath and Mynx dspellman 10:53 AM Education needs Procedure, Plan of Care, and Responsibilities of Patient in Care dspelldavis 10:53 AM Learning barriers :None dspellman 10:53 AM Education Methods Verbal dspellman 10:54 AM Education evaluation Able to repeat information dspellman 10:54 AM Site status No bleeding/hematoma - Rt Groin as reported by Jessica Moreland RN at 10:54 dspellman 10:54 AM Opsite applied dspellman 10:57 AM Patient out of room: 10:57 dspellman 10:57 AM Complications: None dspellman 10:57 AM Fluoro Time: 1.7 dspellman 10:57 AM Isovue 370 - 200ml contrast 56 ml given by Carlos Mays MD, [facility]. dspell 10:57 AM Radiation Dose 277.68 mGy dspellman 11:03 AM Time: 10:47LOC: 5 = Fully awake and oriented or at pre-proc level dspellman 11:08 AM Lesion found in 1st Marginal. Pre Stenosis: 80 Pre RUTHIE Flow: dspellman 11:09 AM Lesion found in Mid RCA. Pre Stenosis: 100 Pre RUTHIE Flow: dspellman 11:09 AM Right Coronary, Right Posterior Descending Arteries with Right Posterolateral and Acute Marginal branches with 100 % stenosis. If graft is supplying this area, 0 % stenosis [facility] Complications Complication None None Hemodynamics Pressures Site Systolic/A Wave Diastolic/V Wave Mean AO 137 74 101 LV 146 5 20 LV 147 8 26 AO 142 78 106 AO 143 59 88 Post Procedure Information Blood Pressure: 153/91 mmHg Rhythm: NSR Post procedural instructions were given Surgery consult for CABG Closure Device Time Device Success/Fail 04/11/2017 11:09:00 AM MynxGrip Successful Site Checks Time Location Status Staff Sheath In? Note 10:54 AM Rt Groin No bleeding/hematoma Jessica Moreland RN Pulses Time Site Pre-Procedure Post-Procedure Note 04/11/2017 9:33:00 AM Bilateral DP \\T\\ PT Doppler 04/11/2017 9:33:00 AM Rt Radial 1+ 04/11/2017 9:34:00 AM Lt Radial 2+ 10:52:00 AM Bilateral DP \\T\\ PT 2+ 10:52:00 AM Bilateral DP \\T\\ PT Doppler Updated by Maddie Parada RT (R) on 04/11/2017 11:12:45 AM Maddie Parada RT electronically signed on 04/11/2017 11:13:32 AM with status of Final
[2017-04-11] MEDS ORDERED: Ondansetron 4 MG/2 ML VIAL IVP PRN (12:55)
[2017-04-11] MEDS ORDERED: *HR* Morphine 2 MG/ML SYRINGE IVP PRN (12:55)
[2017-04-11] MEDS ORDERED: Nitroglycerin 0.4 MG TAB.SUBL SL PRN (12:55)
[2017-04-11] MEDS ORDERED: *HR* HYDROcodone/Acet 5/325 mg TABLET PO PRN (12:55)
[2017-04-11] MEDS ORDERED: *HR* LORazepam 1 MG TABLET PO PRN (13:02)
[2017-04-11] MEDS ORDERED: *HR* Dextrose 50 % in Water (Syg) 50 ML SYRINGE IVP PRN (13:07)
[2017-04-11] MEDS ORDERED: Dextrose Gel 15 GM PO PRN ×2 (13:07)
[2017-04-11] MEDS ORDERED: D5% in Water 1,000 ML IVC PRN (13:07)
--- NOTE | 2017-04-11 13:40 | Invasive Diagnostic Lab ---
Name: Jovi Moncada Date of Study: 04/11/2017 Date: 1945 Ht: 177.8 cm /70.0 in Medical Record#: [id number] Age: 72 Wt: 105.9 kg / 233.47 lb Account/Order#: [id number] Gender: Male BSA: 2.23 Order #: [id number] Fluoro Dose: 278 mGy BMI: 33.5 Procedure Physician: Carlos Mays MD, FACC Referring MD: Carlo Lomax MD Referring MD: Procedures Performed: LEFT HEART CATH Indications: Abnormal Test - Stress Impressions: There is severe three vessel coronary artery disease. The left ventricle is normal and has low normal contractility EF 50% Diabetic with high tercile Syntax anatomical score Recommendations: Optimal medical therapy of patient's disease. Aggressive risk factor modification. Suggest patient have Nonelective coronary artery bypass surgery. History/Risk Factors: PE POST OP R TKR X3 ASTHMA Diabetes Diabetes Therapy: Oral Hypertension Dyslipidemia Family History of CAD Procedure Access obtained in the right Femoral artery by percutaneous puncture Complications: None, None Contrast: Isovue 56ml Closure Device: MynxGrip Hemodynamics: Pressures Site Systolic/ A Wave Diastolic/ V Wave End Diastolic/ Mean HR AO 137 74 101 66 LV 146 5 20 77 LV 147 8 26 76 AO 142 78 106 75 AO 143 59 88 80 LV Ventriculography Ejection Method: LV Gram Ejection Fraction: 50% Wall Motion: FORBES Anterobasal Normal Anterolateral Normal Apical: Normal Inferoapical Normal Inferobasal Severe Hypokinesis Coronary Dominance: right Lesion Findings/Interventions * Left Main Coronary Artery The LMCA is angiographically free of disease. * Left Anterior Descending There is a 70% stenosis in the Proximal LAD. The lesion has calcification noted. There is a long 95% stenosis in the Mid LAD. * Circumflex There is a 90% stenosis in the Mid Circumflex. There is a 80% stenosis in the high 1st Marginal. Further describing the stenosis as ostial and proximal. * Right Coronary Artery There is a long 100% stenosis in the Mid RCA. The lesion has severely calcification noted. Updated by RT Elkin (R) on 04/11/2017 11:11:25 AM Carlos Mays MD, FACC electronically signed on 04/11/2017 1:33:47 PM with status of Final
[2017-04-11] MEDS: Gabapentin 300 MG CAPSULE PO SCH ×2 (14:45→21:18)
--- NOTE | 2017-04-11 14:55 | Cardiothoracic Consult Note ---
Date of Encounter: 04/11/17 Time of Encounter: 14:49 Assessment and Plan (1) CAD (coronary artery disease) Current Visit: Yes Status: Acute The patient is a 72-year-old type II diabetic, hypertensive man with hypercholesterolemia who is had progressive exertional substernal chest pain radiating to his left jaw and down his left arm for 2-3 months. He has associated shortness of breath and dyspnea on exertion. He underwent a nuclear stress test and was found to have anterior and apical ischemia and inferior and inferolateral infarction. Cardiac catheterization performed today revealed severe 3 vessel CAD and LVEF 60%. He has been recommended for CABG. I concur with this recommendation. Patient understands the procedure, benefits, alternatives, and risks, and gives his informed consent. The STS risk calculator the STS risk calculator gives an operative mortality risk 0.9%, permanent stroke risk 0.8%, deep sternal wound infection risk 0.5% renal failure risk 2.7%, preoperative risk 4%. The assessment and plan as outlined above was discussed with the patient and/or family members who expressed understanding and agreement. All questions were answered. Qualifiers: Coronary Disease-Associated Artery/Lesion type: [place] artery [place] vs. transplanted heart: [place] heart Associated angina: with stable angina Qualified Code(s): I25.118 - Atherosclerotic heart disease of [place] coronary artery with other forms of angina pectoris - History of Present Illness Consult date: 04/11/17 Requesting physician: Carlos Mays Consult reason: CABG evaluation. Chief complaint: Exertional substernal chest pain, shortness of breath. History of present illness: Mr. Moncada is a 72 year old type II diabetic, hypertensive man with hypercholesterolemia who has experienced progressive exertional substernal chest pain radiating to his jaw and down his left arm and shortness of breath. The symptoms have been present for 2-3 months and have severely limited the patient's activity. He underwent a right total knee revision in September 2016 followed by a second operation in November 2016. The patient was hoping to be able to increase his activity; however, he began experiencing vague retrosternal chest pain initially. The symptoms have progressed and the substernal chest pain now radiates into his left jaw and down his left arm. The symptoms have always occurred with activity and currently the patient is only able to walk 20-30 feet without experiencing severe pain. The pain will resolve with rest after 15-30 minutes. The patient also has profound shortness of breath and other than his asthma, he has had no other respiratory issues. He mentioned the symptoms to his primary care provider, Lyndsay Estes CNP, who initiated a cardiac workup. The patient underwent a nuclear stress test which revealed an LVEF 58% with anterior and apical ischemia and inferior and inferolateral infarction. Cardiac catheterization performed today revealed severe 3 vessel CAD and LVEF 60%. In particular, the patient has a 95% mid LAD lesion, an 80% proximal LCx lesion, an 80% proximal OM1 lesion, and a completely occluded proximal RCA which fills distally via [id number] collaterals. The patient has been recommended for CABG. Past Med Surg Social Fam HX - Past Medical History Medical history: arthritis, asthma, coronary artery disease, diabetes, hyperlipidemia, hypertension Psychiatric history: no psych history - Past Surgical History Surgical History: cholecystectomy, knee replacement, orthopedic, other, other ( Cervical fusion 3, lumbar fusion) - Social History Smoking Status: Never smoker Smokeless Tobacco Status: No Alcohol use: none Drug use: none Occupational status: retired Current living situation: Home - Independent Activity Level: Independent ambulation Recent Out of Country Travel Within the Last 8 Weeks: No Exposure or Possible Exposure to Illness During Travel: No - Family History Mother Hx Family Cancer: Yes Father Hx Family Cardiac Disorders: Yes Hx Family Endocrine Disorder: Yes Medications and Allergies Allopurinol [Zyloprim 300 MG] 300 mg PO DAILY 01/18/16 [History] Colestipol HCl [Colestid] 1.5 gm PO DAILY PRN 01/18/16 [History] Gabapentin [Neurontin] 600 mg PO TID 01/18/16 [History] Lisinopril/Hydrochlorothiazide [Zestoretic 20-12.5 mg Tablet] 1 tab PO DAILY 08/25 [History] Meloxicam [Mobic] 15 mg PO DAILY 01/18/16 [History] Metformin HCl [Glucophage] 1,000 mg PO BID 01/18/16 [History] Montelukast [Singulair] 10 mg PO HS 01/18/16 [History] Omeprazole [PriLOSEC] 40 mg PO BID 01/18/16 [History] Tramadol HCl/Acetaminophen [Ultracet Tablet] 2 tab PO Q6H PRN 01/18/16 [History] Aspirin 81 mg PO HS 12/06/16 [History] Glimepiride [Amaryl] 4 mg PO QAM 12/06/16 [History] Albuterol Sulfate [Proair Hfa] 2 puff IH Q4H PRN 04/11/17 [History] Diclofenac Sodium [Voltaren] 100 gm TP QID 04/11/17 [History] Dicyclomine [Bentyl] 10 - 20 mg PO QID 04/11/17 [History] Glimepiride [Amaryl] 2 mg PO QPM 04/11/17 [History] Levomefolate/B6/B12/Algal Oil [Metanx Capsule] 2 cap PO DAILY 04/11/17 [History] Metoprolol Succinate 25 mg PO DAILY 04/11/17 [History] Nitroglycerin [Nitrostat] 0.4 mg SL AD PRN 04/11/17 [History] Allergies No Known Allergies Allergy (Verified 12/06/16 14:26) All Systems Review: A 10-system review of systems was performed and is negative for pertinent findings except as documented above in the HPI. Physical Examination Vital Signs, Last 4 Hours Temp Pulse Resp BP Pulse Ox 04/11/17 13:00 73 137/80 04/11/17 12:30 73 128/82 04/11/17 12:15 73 139/70 04/11/17 12:03 97 04/11/17 12:00 68 156/84 04/11/17 11:45 97.9 F 68 16 163/95 97 General: Conversant, No Apparent Distress HEENT: Atraumatic, Normocephaly, Trachea midline Neck: No JVD, Normal carotid pulses Cardiac: Reg Rate and Rhythm Lungs: Normal Breath Sounds, No Wheeze, Rales, Rhonchi Neuro: Alert and responsive, No focal deficits noted, Motor nerves intact, Sensory nerves intact Vascular: Normal capillary refill Abdomen: Soft, Non-tender Skin: No rashes noted on visualized skin Musculoskeletal: No Chest Wall Tenderness Extremities: No Clubbing, No Cyanosis, No Edema Consult Discharge Plan - Plan Referrals: Carlo Lomax MD [Primary Care Provider] -
[2017-04-11] MEDS ORDERED: ceFAZolin 2,000 MG in D5% in Water 100 ML IVPB ONE (15:04)
[2017-04-11 16:01] LABS: Hemoglobin A1C 6.8 %
[2017-04-11] MEDS: Insulin LISPRO 300 UNITS/3 ML VIAL SQ SCH ×2 (16:28→21:19)
[2017-04-11] MEDS: *HR* Glimepiride 4 MG TABLET PO SCH (18:03)
[2017-04-11] MEDS: *HR* Enoxaparin 120 MG/0.8 ML SYRINGE SQ SCH (18:03)
[2017-04-11] MEDS: Aspirin 81 MG TAB.CHEW PO SCH (21:19)
[2017-04-12 04:58] LABS: Basophils % 0.6 %; Eosinophils # 0.3 K/mcL (0.0-0.6); Eosinophils % 4.1 %; Hematocrit 33.6 % (37.5-50.1); Hemoglobin 10.9 g/dL (12.9-16.9); Immature Granulocytes % 0.3 % (0-4); Lymphocytes # 1.6 K/mcL (0.6-4.6); Lymphocytes % 23.7 %; Mean Corpuscular HGB Conc 32.4 g/dL (31.6-35.5); Mean Corpuscular Hemoglobin 27.7 pg (28.0-33.3); Mean Corpuscular Volume 85.3 fL (83.0-100.0); Mean Platelet Volume 10.1 fL (9.4-12.4); Monocytes # 0.7 K/mcL (0.0-1.3); Monocytes % 11.1 %; Platelet Count 289 K/mcL (140-400); Red Blood Count 3.94 M/mcL (4.19-5.50); Segmented Neutrophils % 60.2 %
[2017-04-12 05:14] LABS: BUN/Creatinine Ratio 18 (6-26); Blood Urea Nitrogen 17 mg/dL (8-26); Calcium 9.3 mg/dL (8.6-10.8); Carbon Dioxide 27 mEq/L (19-29); Chloride 103 mEq/L (98-109); Glucose 113 mg/dL (70-99); Osmolality,Calculated 290 (280-300); Potassium 4.1 mEq/L (3.5-4.5); Sodium 139 mEq/L (136-145); eGFR For African Americans > 60 (> 60); eGFR For Non-African Americans > 60 (> 60)
[2017-04-12] MEDS: *HR* Enoxaparin 120 MG/0.8 ML SYRINGE SQ SCH ×2 (05:47→16:41)
--- NOTE | 2017-04-12 06:36 | Cardiothoracic Progress Note ---
Date of Encounter: 04/12/17 Time of Encounter: 06:34 - Assessment and plan (1) CAD (coronary artery disease) Current Visit: Yes Status: Acute The patient is a 72-year-old type II diabetic, hypertensive man with hypercholesterolemia who is had progressive exertional substernal chest pain radiating to his left jaw and down his left arm for 2-3 months. He has associated shortness of breath and dyspnea on exertion. He underwent a nuclear stress test and was found to have anterior and apical ischemia and inferior and inferolateral infarction. Cardiac catheterization performed today revealed severe 3 vessel CAD and LVEF 60%. He has been recommended for CABG. I concur with this recommendation. Patient understands the procedure, benefits, alternatives, and risks, and gives his informed consent. The STS risk calculator the STS risk calculator gives an operative mortality risk 0.9%, permanent stroke risk 0.8%, deep sternal wound infection risk 0.5% renal failure risk 2.7%, preoperative risk 4%. Tentatively the CABG is scheduled for Friday, April 14, 2017. The assessment and plan as outlined above was discussed with the patient and/or family members who expressed understanding and agreement. All questions were answered. Qualifiers: Coronary Disease-Associated Artery/Lesion type: [place] artery [place] vs. transplanted heart: [place] heart Associated angina: with stable angina Qualified Code(s): I25.118 - Atherosclerotic heart disease of [place] coronary artery with other forms of angina pectoris - Subjective Interval history: The patient is resting comfortably in his hospital bed. He had some vague chest discomfort last night which resolved spontaneously. Vital Signs, Last 4 Hours Temp Pulse Resp BP Pulse Ox 04/12/17 04:00 97.6 F 67 16 120/73 96 Oxgyen Flow Rate Oxygen Flow Rate (LPM) 0 Weight 04/10/17 04/11/17 04/12/17 23:59 23:59 23:59 Weight 105.687 kg 104.7 kg - Physical Examination General: Conversant, No Apparent Distress Neck: No JVD, Normal carotid pulses Cardiac: Reg Rate and Rhythm, Normal S1 and S2, No Murmur Lungs: Normal Breath Sounds, No Wheeze, Rales, Rhonchi Neuro: Alert and responsive, No focal deficits noted Vascular: Normal capillary refill Extremities: No Clubbing, No Cyanosis, No Edema - Labs 04/12/17 04:28 04/12/17 04:28 Lab Results, Last 24 hours 04/12/17 04/12/17 04:28 04:28 WBC 6.6 Hgb 10.9 L Hct 33.6 L Plt Count 289 Sodium 139 Potassium 4.1 Chloride 103 Carbon Dioxide 27 BUN 17 Creatinine 0.96 Glucose 113 H Calcium 9.3 Consult Discharge Plan - Plan Referrals: Dami,Carlo West MD [Primary Care Provider] -
[2017-04-12] MEDS: Gabapentin 300 MG CAPSULE PO SCH ×3 (07:58→21:48)
[2017-04-12] MEDS: Lisinopril-HCTZ 20-12.5mg TABLET PO SCH (07:58)
[2017-04-12] MEDS: Metoprolol XL (24 HR) Succ 25 MG TAB.ER.24H PO SCH (07:59)
[2017-04-12] MEDS: *HR* Glimepiride 4 MG TABLET PO SCH ×2 (08:06→16:40)
[2017-04-12] MEDS: Insulin LISPRO 300 UNITS/3 ML VIAL SQ SCH ×4 (08:07→21:48)
--- NOTE | 2017-04-12 11:46 | Cardiology Progress Note ---
Date of Encounter: 04/12/17 Time of Encounter: 11:42 Assessment and Plan (1) CAD (coronary artery disease) Current Visit: Yes Status: Acute S/P C yesterday with severe 3 vessel CAD, CABG recommended and tentatively planned for Friday. CT surgery following. ASA, Statin, BB . Episode of chest pain last night that lasted 2 hours--he did not tell anyone about the pain. Instructed to tell staff when he has chest pain. PRN nitro is ordered. Start low dose Imdur. If persists or worsens, can start nitro gtt. Right femoral access site healing well. No bleeding or hematoma. Mild ecchymosis. Qualifiers: Coronary Disease-Associated Artery/Lesion type: [place] artery [place] vs. transplanted heart: [place] heart Associated angina: with stable angina Qualified Code(s): I25.118 - Atherosclerotic heart disease of [place] coronary artery with other forms of angina pectoris (2) Chest pain Current Visit: Yes Status: Acute Chest pain overnight lasted 2 hours, as above. Start Imdur. PRN nitro, if persists or worsening can order nitro gtt. Pt instructed to make staff aware when he has chest pain. He verbalizes understanding. Qualifiers: Chest pain type: chest pain due to myocardial ischemia Ischemic chest pain type: unstable angina pectoris Qualified Code(s): I20.0 - Unstable angina Discussion w patient/family: The assessment and plan as outlined above was discussed with the patient and/or family members who expressed understanding and agreement. All questions were answered. Thank you for involving us in the care of your patient. Please call with any questions. Subjective Principal diagnosis: CAD Interval history: S/P LHC yesterday revealed severe 3 vessel CAD (70% pLAD, 95% mLAD, 90% mLCx, 80 % high 1st OM 100%mRCA), recommended for CABG. CABG tentatively planned for Friday. Pt reports episode of chest pain overnight that was left sided, aching, lasted 2 hours before resolving. He did not tell anyone about the pain. Currently chest pain free. Objective Vital Signs, Last 4 Hours Pulse Ox 04/12/17 08:17 96 General: Conversant HEENT: Atraumatic, Normocephaly, Mucus Membranes Moist Neck: No JVD, Normal carotid pulses Cardiac: Reg Rate and Rhythm, Normal S1 and S2, No Murmur Lungs: Normal Breath Sounds, No Wheeze, Rales, Rhonchi Neuro: Alert and responsive, No focal deficits noted Abdomen: Soft, Non-Tender Skin: Other (right femoral access site healing well. No bleeding or hematoma. Mild ecchymosis noted.) Musculoskeletal: No Chest Wall Tenderness Extremities: No Clubbing, No Cyanosis, No Edema, Normal Pulses Results 04/12/17 04:28 04/12/17 04:28 Lab Results 04/12/17 04/12/17 04:28 04:28 WBC 6.6 Hgb 10.9 L Hct 33.6 L Plt Count 289 Sodium 139 Potassium 4.1 Chloride 103 Carbon Dioxide 27 BUN 17 Creatinine 0.96 Glucose 113 H Calcium 9.3 - Imaging and Cardiology Cardiac cath: report reviewed Consult Discharge Plan - Plan Referrals: Carlo Lomax MD [Primary Care Provider] -
[2017-04-12] MEDS: 0.9 % Sodium Chloride 1,000 ML IVC SCH (13:30)
[2017-04-12] MEDS: Isosorbide MONOnitrate (24 HR) 30 MG TAB.ER.24H PO SCH (13:30)
[2017-04-12] MEDS: Aspirin 81 MG TAB.CHEW PO SCH (21:47)
[2017-04-13] MEDS: *HR* Enoxaparin 120 MG/0.8 ML SYRINGE SQ SCH ×2 (05:04→18:12)
--- NOTE | 2017-04-13 09:36 | Cardiothoracic Progress Note ---
Date of Encounter: 04/13/17 Time of Encounter: 09:35 - Assessment and plan (1) CAD (coronary artery disease) Current Visit: Yes Status: Acute The patient is a 72-year-old type II diabetic, hypertensive man with hypercholesterolemia who is had progressive exertional substernal chest pain radiating to his left jaw and down his left arm for 2-3 months. He has associated shortness of breath and dyspnea on exertion. He underwent a nuclear stress test and was found to have anterior and apical ischemia and inferior and inferolateral infarction. Cardiac catheterization performed today revealed severe 3 vessel CAD and LVEF 60%. He has been recommended for CABG. I concur with this recommendation. Patient understands the procedure, benefits, alternatives, and risks, and gives his informed consent. The STS risk calculator the STS risk calculator gives an operative mortality risk 0.9%, permanent stroke risk 0.8%, deep sternal wound infection risk 0.5% renal failure risk 2.7%, preoperative risk 4%. Tentatively the CABG is scheduled for Friday, April 14, 2017. The assessment and plan as outlined above was discussed with the patient and/or family members who expressed understanding and agreement. All questions were answered. Qualifiers: Coronary Disease-Associated Artery/Lesion type: [place] artery [place] vs. transplanted heart: [place] heart Associated angina: with stable angina Qualified Code(s): I25.118 - Atherosclerotic heart disease of [place] coronary artery with other forms of angina pectoris - Subjective Interval history: The patient is resting comfortably in his hospital bed. He had no further chest pain yesterday. Vital Signs, Last 4 Hours Temp Pulse Resp BP Pulse Ox 04/13/17 08:00 95 04/13/17 07:47 98.0 F 68 15 134/77 95 Oxgyen Flow Rate Oxygen Flow Rate (LPM) 0 Clinical Data, last 8 Hours Output, Urine Amount 0 Output, Urine Amount 0 Weight 04/11/17 04/12/17 04/13/17 23:59 23:59 23:59 Weight 105.687 kg 104.7 kg 106.5 kg - Physical Examination General: Conversant, No Apparent Distress Neck: No JVD, Normal carotid pulses Cardiac: Reg Rate and Rhythm, Normal S1 and S2, No Murmur Lungs: Normal Breath Sounds, No Wheeze, Rales, Rhonchi Neuro: Alert and responsive, No focal deficits noted Vascular: Normal capillary refill Musculoskeletal: No Chest Wall Tenderness Extremities: No Clubbing, No Cyanosis, No Edema - Labs 04/12/17 04:28 04/12/17 04:28 Consult Discharge Plan - Plan Referrals: Carlo Lomax MD [Primary Care Provider] -
[2017-04-13] MEDS: Insulin LISPRO 300 UNITS/3 ML VIAL SQ SCH ×4 (10:16→22:36)
[2017-04-13] MEDS: Lisinopril-HCTZ 20-12.5mg TABLET PO SCH (10:18)
[2017-04-13] MEDS: *HR* Glimepiride 4 MG TABLET PO SCH ×2 (10:19→18:12)
[2017-04-13] MEDS: Gabapentin 300 MG CAPSULE PO SCH ×3 (10:19→22:33)
[2017-04-13] MEDS: Metoprolol XL (24 HR) Succ 25 MG TAB.ER.24H PO SCH (10:19)
[2017-04-13] MEDS: Isosorbide MONOnitrate (24 HR) 30 MG TAB.ER.24H PO SCH (10:19)
[2017-04-13] MEDS: 0.9 % Sodium Chloride 1,000 ML IVC SCH (10:20)
--- NOTE | 2017-04-13 10:26 | Cardiology Progress Note ---
Date of Encounter: 04/13/17 Time of Encounter: 10:24 Assessment and Plan (1) CAD (coronary artery disease) Current Visit: Yes Status: Acute [facility] with severe 3 vessel CAD, CABG recommended and tentatively planned for Friday. CT surgery following. ASA, Statin, BB, Imdur. No recurrent chest pain since Imdur was added. Right femoral access site healing well. No bleeding or hematoma. Mild ecchymosis. Qualifiers: Coronary Disease-Associated Artery/Lesion type: [place] artery [place] vs. transplanted heart: [place] heart Associated angina: with stable angina Qualified Code(s): I25.118 - Atherosclerotic heart disease of [place] coronary artery with other forms of angina pectoris Discussion w patient/family: The assessment and plan as outlined above was discussed with the patient and/or family members who expressed understanding and agreement. All questions were answered. Thank you for involving us in the care of your patient. Please call with any questions. Subjective Principal diagnosis: CAD Interval history: Awaiting CABG tomorrow. Denies any recurrent chest pain since Imdur was added. No acute complaints. Pt up in chair. Objective Vital Signs, Last 4 Hours Temp Pulse Resp BP Pulse Ox 04/13/17 08:00 95 04/13/17 07:47 98.0 F 68 15 134/77 95 Vital Signs Temp Pulse Resp BP Pulse Ox 04/13/17 08:00 95 04/13/17 07:47 98.0 F 68 15 134/77 95 04/13/17 03:28 63 18 103/67 96 04/13/17 00:00 97.6 F 64 16 97/57 94 04/12/17 20:00 98.3 F 74 18 103/64 95 04/12/17 16:50 97.9 F 79 18 92/63 97 04/12/17 16:49 87 20 102/60 98 04/12/17 13:07 78 130/84 04/12/17 12:15 71 20 132/104 94 04/12/17 12:03 98.0 F 76 17 123/71 93 Intake and Output 04/12/17 04/13/17 04/13/17 23:59 07:59 15:59 Intake Total 450 / 450 0 / 0 1200 / 1200 Output Total 100 / 100 105 / 105 Balance 350 / 350 -105 / -105 1200 / 1200 Intake: IV Fluids 1000 / 1000 0.9 % Sodium Chloride 1, 1000 / 1000 000 ML @ 50 mls/hr IVC . Q20H ANDREW Rx#:[id number] Oral 450 / 450 0 / 0 200 / 200 Output: Urine 100 / 100 105 / 105 Other: Meal Breakfast Percent of Meal Consumed 90% # Voids 1 Weight 106.5 kg Blood Glucose* 182 121 Patient Weight 04/13/17 23:59 Weight 106.5 kg General: Conversant, No Apparent Distress HEENT: Atraumatic, Normocephaly, Mucus Membranes Moist Neck: No JVD, Normal carotid pulses Cardiac: Reg Rate and Rhythm, Normal S1 and S2, No Murmur Lungs: Normal Breath Sounds, No Wheeze, Rales, Rhonchi Neuro: Alert and responsive, No focal deficits noted Abdomen: Soft, Non-Tender Skin: No rashes noted on visualized skin Musculoskeletal: No Chest Wall Tenderness Extremities: No Clubbing, No Cyanosis, No Edema, Normal Pulses Results 04/12/17 04:28 04/12/17 04:28 - Imaging and Cardiology Cardiac cath: report reviewed Consult Discharge Plan - Plan Referrals: Carlo Lomax MD [Primary Care Provider] -
[2017-04-13] MEDS: Aspirin 81 MG TAB.CHEW PO SCH (22:33)
[2017-04-13] MEDS: Chlorhexidine Rinse 15 ML MOUTHWASH MM SCH (22:34)
[2017-04-14] MEDS: *HR* Glimepiride 4 MG TABLET PO SCH (05:47)
[2017-04-14] MEDS: Metoprolol XL (24 HR) Succ 25 MG TAB.ER.24H PO SCH (06:06)
[2017-04-14] MEDS: Chlorhexidine Rinse 15 ML MOUTHWASH MM SCH ×2 (06:07→20:41)
[2017-04-14] MEDS: 0.9 % Sodium Chloride 1,000 ML IVC SCH (07:11)
[2017-04-14] MEDS: Isosorbide MONOnitrate (24 HR) 30 MG TAB.ER.24H PO SCH (07:14)
[2017-04-14] MEDS: Lisinopril-HCTZ 20-12.5mg TABLET PO SCH (07:14)
[2017-04-14] MEDS: Gabapentin 300 MG CAPSULE PO SCH ×3 (07:16→20:42)
[2017-04-14] MEDS: Insulin LISPRO 300 UNITS/3 ML VIAL SQ SCH (08:08)
--- NOTE | 2017-04-14 09:24 | Anesthesia Evaluation PreOp ---
Date of Encounter: 04/14/17 Time of Encounter: 12:29 - Past History Planned Operation: CABG Cardiac History: Angina, HTN, Hyperlipidemia Pulmonary History: Asthma (never smoked) Other Medical History: Diabetes Type II Anesthesia History: No Prior Anesthetic Complications, Past Anesthesia (TKA with revisions, last 09/25 Loraine C-fusion 3 level, lumbar fusion) Alcohol Use: none Drug use: none Medications and Allergies Allopurinol [Zyloprim 300 MG] 300 mg PO DAILY 01/18/16 [History] Colestipol HCl [Colestid] 1.5 gm PO DAILY PRN 01/18/16 [History] Gabapentin [Neurontin] 600 mg PO TID 01/18/16 [History] Lisinopril/Hydrochlorothiazide [Zestoretic 20-12.5 mg Tablet] 1 tab PO DAILY 08/25 [History] Meloxicam [Mobic] 15 mg PO DAILY 01/18/16 [History] Metformin HCl [Glucophage] 1,000 mg PO BID 01/18/16 [History] Montelukast [Singulair] 10 mg PO HS 01/18/16 [History] Omeprazole [PriLOSEC] 40 mg PO BID 01/18/16 [History] Tramadol HCl/Acetaminophen [Ultracet Tablet] 2 tab PO Q6H PRN 01/18/16 [History] Aspirin 81 mg PO HS 12/06/16 [History] Glimepiride [Amaryl] 4 mg PO QAM 12/06/16 [History] Albuterol Sulfate [Proair Hfa] 2 puff IH Q4H PRN 04/11/17 [History] Diclofenac Sodium [Voltaren] 100 gm TP QID 04/11/17 [History] Dicyclomine [Bentyl] 10 - 20 mg PO QID 04/11/17 [History] Glimepiride [Amaryl] 2 mg PO QPM 04/11/17 [History] Levomefolate/B6/B12/Algal Oil [Metanx Capsule] 2 cap PO DAILY 04/11/17 [History] Metoprolol Succinate 25 mg PO DAILY 04/11/17 [History] Nitroglycerin [Nitrostat] 0.4 mg SL AD PRN 04/11/17 [History] Allergies No Known Allergies Allergy (Verified 12/06/16 14:26) - Meds/Allergy Pre-op Review Medications Reviewed: Yes Allergies Reviewed: Yes Beta Blockers on Current Med List: Yes (605 today 25mg) If Beta Blockers taken, Date/Time (Last Dose taken): 605 today Anesthesia Results - Labs 04/12/17 04:28 04/12/17 04:28 - Imaging EKG: report reviewed Additional studies: Cath shows severe 3 vessel ds, EF60% Anesthesia Exam Selected Entries 04/14/17 07:00 Temperature 98.4 F Pulse Rate 82 Respiratory Rate 15 Blood Pressure 130/84 O2 Sat by Pulse Oximetry 98 Height: 70in Weight: 106kg NPO (# of Hours): 8 Pain Scale: 0 Pain Scale Used: Numeric (1 - 10) - HEENT Pupil (Motor): EOMI Mallampati: II Teeth: Edentulous Oral Opening: Greater than 3 - SPECIAL POPULATION PARAPROFESSIONAL LOC: Oriented SPECIAL POPULATION PARAPROFESSIONAL Motor: Normal RUE, Normal LUE, Normal RLE, Normal LLE, Normal Face SPECIAL POPULATION PARAPROFESSIONAL Sensory: Normal: RUE, LUE, RLE, LLE, Face - Cardiac Rhythm: Regular Murmur: None - Pulmonary Breath Sounds: bilateral Clear Respiratory Effort: Symmetrical Anesthesia Assess/Plan ASA Score: 4 Modified [place] Scale for Level of Consciousness: Cooperative, oriented, and tranquil Anesthetic Plan: General Monitoring Plan: Standard Monitors, A-Line, PAC, FLORENTIN Recovery Plan: ICU (Discussed risks of GA, lines, FLORENTIN and blood products. Questions answered and agrees to proceed.)
[2017-04-14] MEDS ORDERED: Albumin Human 5% 50.0 GM/1,000 ML VIAL ONE (09:25)
[2017-04-14] MEDS ORDERED: Nitroglycerin 25 MG/250 ML INFUS..BTL IVC ONE ×2 (09:26→12:13)
[2017-04-14] MEDS ORDERED: niCARdipine 40 MG/200 ML MLS IVC ONE (09:27)
[2017-04-14] MEDS ORDERED: Protamine Sulfate 250 MG/25 ML VIAL IVP ONE (10:03)
[2017-04-14] MEDS ORDERED: *HR* Norepinephrine 4 MG/4 ML VIAL IVC ONE (10:03)
[2017-04-14] MEDS ORDERED: *HR* Etomidate 20 MG/10 ML AMPUL IVP ONE (10:03)
[2017-04-14] MEDS ORDERED: *HR* Rocuronium Bromide 50 MG/5 ML VIAL ONE (10:03)
[2017-04-14] MEDS ORDERED: Famotidine 20 MG/2 ML VIAL ONE (10:03)
[2017-04-14] MEDS ORDERED: *HR* Phenylephrine 10 MG/ML VIAL ONE (10:03)
[2017-04-14] MEDS ORDERED: *HR* Midazolam HCl 5 MG/5 ML VIAL IVP ONE (10:11)
[2017-04-14] MEDS ORDERED: *HR* FentaNYL (PF) 1,000 MCG/20 ML VIAL ONE (10:11)
[2017-04-14] MEDS ORDERED: Protamine Sulfate 50 MG/5 ML VIAL IVP ONE (10:46)
[2017-04-14] MEDS ORDERED: Tranexamic Acid 1,000 MG/10 ML VIAL IV ONE (12:00)
[2017-04-14] MEDS ORDERED: Mannitol 25% vial 12.5 GM/50 ML VIAL IVP ONE (12:00)
[2017-04-14] MEDS ORDERED: ceFAZolin 2,000 MG in D5% in Water 100 ML IVPB ONE (12:00)
[2017-04-14] MEDS ORDERED: *HR* Magnesium Sulfate 2 GM/50 ML PIGGYBACK IVPB ONE (12:00)
[2017-04-14] MEDS ORDERED: Albumin Human 25% 25 GM/100 ML IV.SOLN IV ONE (12:00)
[2017-04-14] MEDS ORDERED: *HR* Phenylephrine 10 MG/ML VIAL IVC ONE (12:00)
[2017-04-14] MEDS ORDERED: Lidocaine 2% Syringe 100 MG/5 ML IVP ONE (12:00)
[2017-04-14] MEDS ORDERED: *HR* Heparin 10,000 UNIT/10 ML VIAL IVP ONE (12:00)
[2017-04-14] MEDS ORDERED: Insulin Regular, Human 100 UNIT/ML ONE (12:14)
--- NOTE | 2017-04-14 13:35 | Anesthesia Procedures ---
Date of Encounter: 04/14/17 Time of Encounter: 12:50 Procedures: Anesthesia - Arterial Line Consent obtained: written consent Time out performed: Yes Sedation: Versed (mg): 2 Sedation: Fentanyl (mcg): 100 Supplemental Oxygen via Nasal Cannula (L/min): 2 Local Anesthetic: Lidocaine 1% Amount of Anesthetic used (mls): 1 Size (Gauge): 20 Length (inches): 5 Technique Used: sterile prep, guide wire technique, direct puncture technique Post-Procedure: line taped into place, dry sterile dressing placed Patient tolerated procedure: well, no complications Complications: none Site: Radial L - Central Line Placement Right IJ Consent obtained: written consent prep: mask, gown, gloves Central line prep: Chlorhexidine scrub Ultrasound used for placement: Yes Technique: Seldinger Lumen Inserted: Introducer Post procedure: sutured in place, good blood return, all ports aspirated, flushed, capped, sterile dressing applied Patient tolerated procedure: well, no complications Complications: none (attempt x 1. [place] placed without arrythmia, wedge approx. 66cm)
[2017-04-14] MEDS ORDERED: Tranexamic Acid 1,000 MG/10 ML VIAL ONE (15:07)
--- NOTE | 2017-04-14 16:29 | Electrocardiograph Report ---
[address] [place] [address] Test Date: 2017-04-13 Pat Name: Jovi Moncada Department: 111 Room: [facility] Gender: M Coremaker Floor: [place] : 1945 Requested By: Carlos Mays Order Number: [id number] Reading MD: Elda Frazier Measurements Intervals [place] Rate: 70 P: 28 VA: 184 QRS: -37 QRSD: 108 T: -10 QT: 369 QTc: 390 Interpretive Statements SINUS RHYTHM INFERIOR MYOCARDIAL INFARCTION, OLD WITH POSTERIOR EXTENSION Electronically Signed On 04-14-2017 16:27:32 EDT by Elda Frazier
--- NOTE | 2017-04-14 16:31 | Operative Note ---
Date of procedure: 04/14/17 Pre-op diagnosis: CAD with unstable angina Post-op diagnosis: same Procedure: 1. CABG3 (OMER to LAD, SVG to OM1, SVG to PDA). 2. Endoscopic vein harvesting, greater saphenous vein from right lower extremity. Implants: None. Complications: None. Anesthesia: AYAN Surgeon: China Templeton [employer] Coordinator: Rocky Kaye Condition: stable Disposition: ICU Procedure in Detail: INDICATIONS FOR OPERATION: The patient is a 72 year old type II diabetic, hypertensive man with hypercholesterolemia who has experienced progressive exertional substernal chest pain radiating to his jaw and down his left arm and shortness of breath. The symptoms have been present for 2-3 months and have severely limited the patient's activity. He underwent a right total knee revision in September 2016 followed by a second operation in November 2016. The patient was hoping to be able to increase his activity; however, he began experiencing vague retrosternal chest pain initially. The symptoms have progressed and the substernal chest pain now radiates into his left jaw and down his left arm. The symptoms have always occurred with activity and currently the patient is only able to walk 20-30 feet without experiencing severe pain. The pain will resolve with rest after 15-30 minutes. The patient also has profound shortness of breath and other than his asthma, he has had no other respiratory issues. He mentioned the symptoms to his primary care provider, Lyndsay Estes CNP, who initiated a cardiac workup. The patient underwent a nuclear stress test which revealed an LVEF 58% with anterior and apical ischemia and inferior and inferolateral infarction. Cardiac catheterization performed today revealed severe 3 vessel CAD and LVEF 60%. In particular, the patient has a 95% mid LAD lesion, an 80% proximal LCx lesion, an 80% proximal OM1 lesion, and a completely occluded proximal RCA which fills distally via [id number] collaterals. The patient has been recommended for CABG. FINDINGS AT OPERATION: The aorta was of normal caliber without calcification; however, was markedly shifted to the patient's right side. The coronary arteries measure approximately 1.5-2 mm diameter and had mild distal disease. The greater saphenous vein was harvested endoscopically from the right lower extremity from the knee to the groin and was of good quality. The total bypass time was 69 minutes, cross-clamp time 40 minutes, intentional hypothermia 35C. DESCRIPTION OF OPERATION: After obtaining informed consent for the patient, he was taken to the operating room where satisfactory general endotracheal anesthetic was induced. Appropriate monitoring lines were placed, and the patient's chest, abdomen, and lower extremities were prepped and draped in a sterile fashion. The greater saphenous vein was harvested endoscopically from the right lower extremity from the knee to the groin and was of good quality. The subcutaneous tissue and skin edges were reapproximated using running Vicryl sutures. Simultaneously a standard medium sternotomy incision was made and sternum divided. The OMER was taken out of its bed and side branches divided between hemoclips. The sternum was the pericardium opened and reflected laterally. The aorta was noted to be shifted to the patient's right side and required retraction to the midline to facilitate cannulation. Pursestring sutures were placed in the distal ascending aorta, mid-ascending aorta, and right atrial appendage. The patient was heparinized and when the ACT was greater than 200 seconds, the distal ascending aorta was cannulated followed closely dual stage venous cannula through the right atrial appendage and into the inferior vena cava. A stab-in antegrade metabolic and was placed in the mid- ascending aorta. The patient was placed on bypass and the temperature allowed to drift to 35C. The distal targets were identified and the aorta was crossclamped. The patient received 700 mL of cold antegrade crystalloid cardioplegia to the aortic root and the patient's heart obtained rapid diastolic arrest. The PDA was opened the bladder blade and the vein was anastomosed in an end-to- side fashion using a running 7-0 Prolene suture. The anastomosis found to be hemostatic and the patient seemed another dose of cold antegrade crystalloid cardioplegia through the aortic root area The OM1 branch was opened with [place] blade and the vein was anastomosed in an end-to-side fashion using running 7-0 Prolene suture. Again the anastomosis found to be hemostatic and the patient received a final dose of cold antegrade crystalloid cardioplegia through the aortic root. The LAD was opened. Blade and the OMER was anastomosed to the LAD in an end-to-side fashion using running 7-0 Prolene suture. The anastomosis found to be hemostatic and the mammary pedicle was tacked to the epicardium using interrupted 5-0 silk suture. Rewarming was begun during this anastomosis. The aortic cross-clamp was removed and the heart distended. The veins were measured and cut at appropriate lengths. A partial occluding clamp was placed across the mid ascending aorta and the antegrade cardiac cannulas removed. An additional aortotomy site was made 11 blade and both sites were enlarged with 4 mm punch. The vein grafts were then anastomosed to the aorta in an end-to-side fashion using running 5-0 Prolene suture. The vein grafts were occluded with a bulldog clamp and used a 25-gauge needle prior to partial occluding clamp The proximal and distal anastomoses were found to be hemostatic. The proximal anastomoses were marked with radiopaque loops. Two right ventricular temporary epicardial pacing was replaced, and 3 chest tubes were placed, 2 in the mediastinum and one into the left pleural space. When the patient's systemic temperature reached 36C, he was ventilator received volume. He was then weaned from bypass required no inotropic support. Protamine was administered and the aortic and venous cannulae were removed. The aortic and venous cannulation sites were reinforced with 4-0 Prolene sutures. The pericardium was was approximated in the midline using interrupted 0 silk suture. The sternum was reapproximated using double wires, and the pectoralis major fascia, rectus abdominis fascia, subcutaneous tissue, and skin edges were reapproximated using running Vicryl sutures. A negative pressure sterile dressing was applied to the sternotomy incision. The patient was transferred to the ICU in satisfactory postoperative condition. There no intraoperative complications, and instrument, needle, and sponge counts were correct at end of operation. - Open Heart Detail MARLO (Internal Mammary Artery) Usage: Yes Cardiopulmonary Bypass Time (mins): 69 Aortic Cross Clamp Time (mins): 40 Intentional Hypothermia Temperature (C.): 35
[2017-04-14 16:38] LABS: ABG Glucose 122 mg/dL (60-95); ABG Hematocrit 21 % (35-51); ABG Ionized Calcium 1.26 mmol/L (1.15-1.35); ABG PCO2 36 mmHg (35-45); ABG PH 7.43 pH Units (7.32-7.45); ABG PO2 184 mmHg (85-104)
[2017-04-14 16:39] LABS: ABG Base Excess 0.4 mEq/L (-2.0 to 3.0); ABG HCO3 26 mEQ/L (21-27); ABG Hematocrit 25 % (35-51); ABG Oxygen Saturation 100 % (95-98); ABG PCO2 46 mmHg (35-45); ABG PH 7.36 pH Units (7.32-7.45); ABG PO2 313 mmHg (85-104); ABG TCO2 27.4 mEq/L (20-26)
[2017-04-14 16:39] LABS: ABG Base Excess -0.4 mEq/L (-2.0 to 3.0); ABG HCO3 23.9 mEQ/L (21-27); ABG Oxygen Saturation 100 % (95-98)
[2017-04-14 16:40] LABS: ABG Base Excess 0.2 mEq/L (-2.0 to 3.0); ABG Glucose 188 mg/dL (60-95); ABG HCO3 25.4 mEQ/L (21-27); ABG Hematocrit 23 % (35-51); ABG Ionized Calcium 1.02 mmol/L (1.15-1.35); ABG Oxygen Saturation 100 % (95-98); ABG PCO2 43 mmHg (35-45); ABG PH 7.38 pH Units (7.32-7.45); ABG PO2 350 mmHg (85-104); ABG TCO2 26.7 mEq/L (20-26)
[2017-04-14 16:40] LABS: ABG Glucose 173 mg/dL (60-95); ABG Ionized Calcium 1.05 mmol/L (1.15-1.35)
[2017-04-14 16:41] LABS: ABG Base Excess 0.1 mEq/L (-2.0 to 3.0); ABG HCO3 24.7 mEQ/L (21-27); ABG Hematocrit 27 % (35-51); ABG Oxygen Saturation 99 % (95-98); ABG PCO2 39 mmHg (35-45); ABG PH 7.41 pH Units (7.32-7.45); ABG PO2 125 mmHg (85-104); ABG TCO2 25.9 mEq/L (20-26)
[2017-04-14 16:41] LABS: ABG Glucose 196 mg/dL (60-95); ABG HCO3 248 mEQ/L (21-27); ABG Hematocrit 21 % (35-51); ABG Ionized Calcium 0.99 mmol/L (1.15-1.35); ABG Oxygen Saturation 100 % (95-98); ABG PCO2 40 mmHg (35-45); ABG PO2 537 mmHg (85-104)
[2017-04-14 16:42] LABS: ABG Glucose 140 mg/dL (60-95); ABG Ionized Calcium 0.99 mmol/L (1.15-1.35)
[2017-04-14 16:43] LABS: ABG Base Excess 2.2 mEq/L (-2.0 to 3.0); ABG Glucose 124 mg/dL (60-95); ABG HCO3 27.8 mEQ/L (21-27); ABG Hematocrit 33 % (35-51); ABG Ionized Calcium 1.19 mmol/L (1.15-1.35); ABG Oxygen Saturation 100 % (95-98); ABG PCO2 47 mmHg (35-45); ABG PH 7.38 pH Units (7.32-7.45); ABG PO2 302 mmHg (85-104); ABG TCO2 29.2 mEq/L (20-26)
[2017-04-14] MEDS ORDERED: *HR* Dextrose 50 % in Water (Syg) 50 ML SYRINGE IVP PRN (16:49)
[2017-04-14] MEDS ORDERED: Naloxone 0.4 MG/ML INJ IVP PRN (16:49)
[2017-04-14] MEDS ORDERED: Acetaminophen 650 MG RECTAL SUPP RC PRN (16:49)
[2017-04-14] MEDS ORDERED: Potassium Chloride 40 MEQ/200 ML BAG IVPB PRN (16:49)
[2017-04-14] MEDS ORDERED: Magnesium Sulfate 2 GM in D5% in Water 100 ML IVPB PRN (16:49)
[2017-04-14] MEDS ORDERED: *HR* Morphine 2 MG/ML SYRINGE IVP PRN (16:49)
[2017-04-14] MEDS ORDERED: Insulin Regular, Human 100 UNIT/ML IV PRN (16:49)
[2017-04-14] MEDS ORDERED: Insulin Human Regular 100 UNIT in 0.9 % Sodium Chloride 100 ML IVC SCH (17:00)
[2017-04-14] MEDS ORDERED: 0.9 % Sodium Chloride w KCl 20 MEQ/1,000 ML MLS IVC SCH (17:00)
[2017-04-14] MEDS: Nitroglycerin 25 MG/250 ML INFUS..BTL IVC SCH (17:05)
[2017-04-14] MEDS: niCARdipine 40 MG/200 ML MLS IVC SCH (17:08)
[2017-04-14] MEDS ORDERED: *HR* Morphine 2 MG/ML SYRINGE ONE (17:13)
[2017-04-14 17:17] LABS: ABG Base Excess 2.2 mEq/L (-2.0 to 3.0); ABG HCO3 27.3 mEQ/L (21-27); ABG Oxygen Saturation 100 % (95-98); ABG PCO2 44 mmHg (35-45); ABG PO2 231 mmHg (85-104); ABG TCO2 28.7 mEq/L (20-26)
[2017-04-14 17:18] LABS: Blood Gas FiO2 60 %
[2017-04-14] MEDS: *HR* Morphine 2 MG/ML SYRINGE IVP PRN ×3 (17:20→23:30)
[2017-04-14 17:26] LABS: Basophils % 0.2 %; Eosinophils # 0.2 K/mcL (0.0-0.6); Eosinophils % 1.5 %; Hematocrit 29.1 % (37.5-50.1); Hemoglobin 9.5 g/dL (12.9-16.9); Immature Granulocytes % 0.4 % (0-4); Lymphocytes # 1.4 K/mcL (0.6-4.6); Lymphocytes % 12.1 %; Mean Corpuscular HGB Conc 32.6 g/dL (31.6-35.5); Mean Corpuscular Hemoglobin 27.4 pg (28.0-33.3); Mean Corpuscular Volume 83.9 fL (83.0-100.0); Mean Platelet Volume 10.2 fL (9.4-12.4); Monocytes % 8.9 %; Neutrophils # 8.8 K/mcL (1.6-8.9); Platelet Count 164 K/mcL (140-400); Red Blood Count 3.47 M/mcL (4.19-5.50); Red Cell Distribution Width 16.7 % (11.5-14.5); Segmented Neutrophils % 76.9 %
[2017-04-14 17:27] LABS: INR 1.4; Prothrombin Time 14.7 Seconds (9.4-12.1)
[2017-04-14 17:29] LABS: Activated Partial Thrombo Time 30.2 Seconds (26.0-36.0); BUN/Creatinine Ratio 17 (6-26); Blood Urea Nitrogen 14 mg/dL (8-26); Calcium 8.6 mg/dL (8.6-10.8); Carbon Dioxide 24 mEq/L (19-29); Chloride 106 mEq/L (98-109); Glucose 99 mg/dL (70-99); Magnesium 2.3 mg/dL (1.6-2.6); Osmolality,Calculated 289 (280-300); eGFR For African Americans > 60 (> 60); eGFR For Non-African Americans > 60 (> 60)
[2017-04-14 17:35] LABS: Sodium 139 mEq/L (136-145)
[2017-04-14] MEDS: Pantoprazole 40 MG VIAL IVP SCH (17:58)
[2017-04-14] MEDS: Metoclopramide 10 MG/2 ML VIAL IVP SCH ×2 (17:58→23:12)
[2017-04-14] MEDS: *HR* OxyCODONE/APAP 5/325 TABLET PO PRN (18:41)
[2017-04-14] MEDS: Norepinephrine 4 MG in D5% in Water 250 ML IVC SCH (20:29)
[2017-04-14] MEDS: Acetaminophen 325 MG TABLET PO PRN (20:41)
[2017-04-14] MEDS: Aspirin 81 MG TAB.CHEW PO SCH (20:42)
[2017-04-14 21:03] LABS: Hematocrit 29.7 % (37.5-50.1); Hemoglobin 9.7 g/dL (12.9-16.9)
[2017-04-14 21:35] LABS: ABG Base Excess -0.8 mEq/L (-2.0 to 3.0); ABG HCO3 23.1 mEQ/L (21-27); ABG Oxygen Saturation 100 % (95-98); ABG PCO2 34 mmHg (35-45); ABG PO2 163 mmHg (85-104); ABG TCO2 24.1 mEq/L (20-26)
[2017-04-14 21:36] LABS: Blood Gas FiO2 50 %
[2017-04-14 21:37] LABS: ABG PH 7.44 pH Units (7.32-7.45)
[2017-04-14 22:44] LABS: ABG Base Excess 1.3 mEq/L (-2.0 to 3.0); ABG HCO3 25.9 mEQ/L (21-27); ABG Oxygen Saturation 99 % (95-98); ABG PCO2 40 mmHg (35-45); ABG PO2 138 mmHg (85-104); ABG TCO2 27.1 mEq/L (20-26); Blood Gas CPAP 5 cm H2O; Blood Gas FiO2 40 %
[2017-04-14 22:46] LABS: ABG PH 7.42 pH Units (7.32-7.45)
[2017-04-14] MEDS: ceFAZolin 2,000 MG in D5% in Water 100 ML IVPB SCH (23:10)
[2017-04-14 23:47] LABS: ABG Base Excess 0.3 mEq/L (-2.0 to 3.0); ABG HCO3 25.4 mEQ/L (21-27); ABG Oxygen Saturation 93 % (95-98); ABG PCO2 42 mmHg (35-45); ABG PO2 68 mmHg (85-104); ABG TCO2 26.7 mEq/L (20-26); Blood Gas Liter Flow 2 L/MIN
[2017-04-14 23:48] LABS: Blood Gas FiO2 28 %
[2017-04-14 23:49] LABS: ABG PH 7.39 pH Units (7.32-7.45)
[2017-04-15 03:43] LABS: Basophils % 0.3 %; Hematocrit 22.8 % (37.5-50.1); Hemoglobin 7.3 g/dL (12.9-16.9); Immature Granulocytes % 0.4 % (0-4); Lymphocytes # 0.8 K/mcL (0.6-4.6); Lymphocytes % 7.6 %; Mean Corpuscular Hemoglobin 27.2 pg (28.0-33.3); Mean Corpuscular Volume 85.1 fL (83.0-100.0); Mean Platelet Volume 9.8 fL (9.4-12.4); Monocytes # 1.3 K/mcL (0.0-1.3); Monocytes % 11.9 %; Neutrophils # 8.5 K/mcL (1.6-8.9); Platelet Count 172 K/mcL (140-400); Red Blood Count 2.68 M/mcL (4.19-5.50); Red Cell Distribution Width 17.2 % (11.5-14.5); Segmented Neutrophils % 79.8 %
[2017-04-15 03:51] LABS: INR 1.4; Prothrombin Time 15.5 Seconds (9.4-12.1)
[2017-04-15 03:54] LABS: BUN/Creatinine Ratio 14 (6-26); Blood Urea Nitrogen 18 mg/dL (8-26); Calcium 8.1 mg/dL (8.6-10.8); Carbon Dioxide 21 mEq/L (19-29); Chloride 110 mEq/L (98-109); Glucose 110 mg/dL (70-99); Magnesium 2.4 mg/dL (1.6-2.6); Osmolality,Calculated 295 (280-300); Sodium 141 mEq/L (136-145); eGFR For African Americans > 60 (> 60); eGFR For Non-African Americans 56 (> 60)
[2017-04-15 04:43] LABS: Activated Partial Thrombo Time 32.6 Seconds (26.0-36.0)
[2017-04-15] MEDS: Metoclopramide 10 MG/2 ML VIAL IVP SCH ×2 (05:02→11:41)
[2017-04-15] MEDS: *HR* Morphine 2 MG/ML SYRINGE IVP PRN ×4 (05:02→15:37)
--- NOTE | 2017-04-15 07:00 | Cardiothoracic Progress Note ---
Date of Encounter: 04/15/17 Time of Encounter: 06:57 - Assessment and plan (1) CAD (coronary artery disease) Current Visit: Yes Status: Acute The patient is recovering well from his CABG 3. He is currently extubated and breathing comfortably. His Levophed drip is being slowly weaned. The [place] catheter and [place] catheter be removed. The arterial line were remain in place while the Levophed drip is on. The patient will be monitored in the ICU today. The assessment and plan as outlined above was discussed with the patient and/or family members who expressed understanding and agreement. All questions were answered. Qualifiers: Coronary Disease-Associated Artery/Lesion type: [place] artery [place] vs. transplanted heart: [place] heart Associated angina: with stable angina Qualified Code(s): I25.118 - Atherosclerotic heart disease of [place] coronary artery with other forms of angina pectoris - Subjective Procedure(s) Performed: POD#1 S/P CABG3 Interval history: The patient remained hemodynamically stable overnight. He is currently extubated and sitting in a chair. He is breathing comfortably. His Levophed drip is being slowly weaned. Vital Signs, Last 4 Hours Temp Pulse Resp BP Pulse Ox 04/15/17 05:58 98.9 F 85 26 94/46 95 04/15/17 05:00 89 26 111/48 94 04/15/17 04:10 12 97 04/15/17 04:00 98.8 F 87 22 117/49 95 04/15/17 03:00 98.8 F 93 12 102/41 97 Oxgyen Flow Rate Oxygen Flow Rate (LPM) 2 Clinical Data, last 8 Hours Output, Chest Tube Drainage 0 Amount [Mediastinal #2] Output, Chest Tube Drainage 0 Amount [Mediastinal #2] Output, Chest Tube Drainage 0 Amount [Mediastinal #2] Output, Chest Tube Drainage 0 Amount [Mediastinal #2] Output, Chest Tube Drainage 0 Amount [Mediastinal #2] Output, Chest Tube Drainage 0 Amount [Mediastinal #2] Output, Chest Tube Drainage 0 Amount [Mediastinal #2] Output, Chest Tube Drainage 0 Amount [Mediastinal #2] Output, Chest Tube Drainage 20 Amount [Mediastinal #1] Output, Chest Tube Drainage 10 Amount [Mediastinal #1] Output, Chest Tube Drainage 5 Amount [Mediastinal #1] Output, Chest Tube Drainage 20 Amount [Mediastinal #1] Output, Chest Tube Drainage 5 Amount [Mediastinal #1] Output, Chest Tube Drainage 30 Amount [Mediastinal #1] Output, Chest Tube Drainage 0 Amount [Mediastinal #1] Output, Chest Tube Drainage 15 Amount [Mediastinal #1] Weight 04/13/17 04/14/17 04/15/17 23:59 23:59 23:59 Weight 105.9 kg - Physical Examination General: Conversant, No Apparent Distress Neck: No JVD, Normal carotid pulses Cardiac: Reg Rate and Rhythm, Normal S1 and S2, No Murmur Incision: No signs of infection, Dry/intact dressing Sternum: Stable Chest tubes: Minimal drainage, Other (No air leak.) Pacing Wires: In place Lungs: Normal Breath Sounds (Right lung rosa.), Decreased breath sounds (Left lung rosa.) Neuro: Alert and responsive, No focal deficits noted Vascular: Normal capillary refill Extremities: No Clubbing, No Cyanosis, No Edema - Labs 04/15/17 03:30 04/15/17 03:30 Lab Results, Last 24 hours 04/14/17 04/14/17 04/14/17 17:05 17:05 17:05 WBC 11.4 H D Hgb 9.5 L Hct 29.1 L Plt Count 164 INR 1.4 APTT 30.2 Sodium 139 Potassium 3.0 L D Chloride 106 Carbon Dioxide 24 BUN 14 Creatinine 0.84 Glucose 99 Calcium 8.6 Magnesium 2.3 04/14/17 04/14/17 04/15/17 20:49 20:49 03:30 WBC 10.6 Hgb 9.7 L 7.3 L D Hct 29.7 L 22.8 L Plt Count 172 INR APTT Sodium Potassium 4.8 H D Chloride Carbon Dioxide BUN Creatinine Glucose Calcium Magnesium 04/15/17 04/15/17 03:30 03:30 WBC Hgb Hct Plt Count INR 1.4 APTT 32.6 Sodium 141 Potassium 4.0 Chloride 110 H Carbon Dioxide 21 BUN 18 Creatinine 1.27 H D Glucose 110 H Calcium 8.1 L Magnesium 2.4 - Imaging Chest Xray: image reviewed (No pneumothorax. Left lower lobe atelectasis/ infiltrate. Possible small left pleural effusion.) - VTE Documentation of Mechanical Device: Graduated compression elastic hosiery Consult Discharge Plan - Plan Referrals: Carlo Lomax MD [Primary Care Provider] -
[2017-04-15] MEDS: Furosemide 20 MG/2 ML VIAL IVP SCH (08:16)
[2017-04-15] MEDS: Chlorhexidine Rinse 15 ML MOUTHWASH MM SCH ×2 (08:16→20:33)
[2017-04-15] MEDS: Pantoprazole 40 MG VIAL IVP SCH (08:16)
[2017-04-15] MEDS: Aspirin Enteric Coated 81 MG Tablet PO SCH (08:16)
[2017-04-15] MEDS: Gabapentin 300 MG CAPSULE PO SCH ×3 (08:17→20:33)
[2017-04-15] MEDS: *HR* OxyCODONE/APAP 5/325 TABLET PO PRN ×3 (08:17→15:37)
[2017-04-15] MEDS ORDERED: ceFAZolin 2,000 MG in D5% in Water 100 ML IVPB SCH (12:00)
[2017-04-15] MEDS: Nitroglycerin 25 MG/250 ML INFUS..BTL IVC SCH ×2 (12:15→12:16)
[2017-04-15] MEDS: niCARdipine 40 MG/200 ML MLS IVC SCH (12:17)
--- NOTE | 2017-04-15 12:33 | Anesthesia Evaluation Post Op ---
Date of Encounter: 04/15/17 Time of Encounter: 12:31 - Vital Signs Vital Signs: Selected Entries 04/15/17 12:00 Pulse Rate 95 Respiratory Rate 26 Blood Pressure 121/48 O2 Sat by Pulse Oximetry 95 Oxygen Flow Rate (LPM) 2 - Lungs Lungs: Clear Ascult./Percussion - Airway Airway: Non-obstructed - Cardiovascular Regular Rate - Mental Status Mental Status: Alert & Oriented, Answers Appropriately - Pain Pain Scale: 3 Pain Scale used: Numeric (1 - 10) - Nausea Vomiting Nausea Vomiting: Not Present - Hydration Hydration: Tolerates oral liquids, Crump catheter Notes: 04/15/17 12:32 patient doing well POD#1 CABG, no pparent anesthesia complications.
[2017-04-15] MEDS: ceFAZolin 2,000 MG in D5% in Water 100 ML IVPB SCH (13:26)
[2017-04-15] MEDS ORDERED: Ipratropium/Albuterol Neb 3 ML ONE ×2 (15:50→15:58)
[2017-04-15] MEDS ORDERED: methylPREDNISolone 125 MG/2 ML VIAL ONE (16:04)
[2017-04-15] MEDS ORDERED: methylPREDNISolone 125 MG/2 ML VIAL IVP ONE (16:12)
[2017-04-15 16:25] LABS: ABG Base Excess -4.9 mEq/L (-2.0 to 3.0); ABG HCO3 19.2 mEQ/L (21-27); ABG Oxygen Saturation 89 % (95-98); ABG PCO2 31 mmHg (35-45); ABG PO2 56 mmHg (85-104); ABG TCO2 20.2 mEq/L (20-26)
[2017-04-15 16:26] LABS: Blood Gas Liter Flow 10 L/MIN
--- NOTE | 2017-04-15 16:32 | Pulmonology Consult Note ---
<Hosea Corbett W - Last Filed: 04/15/17 18:22> Date of Encounter: 04/15/17 Medications and Allergies Allopurinol [Zyloprim 300 MG] 300 mg PO DAILY 01/18/16 [History] Colestipol HCl [Colestid] 1.5 gm PO DAILY PRN 01/18/16 [History] Gabapentin [Neurontin] 600 mg PO TID 01/18/16 [History] Lisinopril/Hydrochlorothiazide [Zestoretic 20-12.5 mg Tablet] 1 tab PO DAILY 08/25 [History] Meloxicam [Mobic] 15 mg PO DAILY 01/18/16 [History] Metformin HCl [Glucophage] 1,000 mg PO BID 01/18/16 [History] Montelukast [Singulair] 10 mg PO HS 01/18/16 [History] Omeprazole [PriLOSEC] 40 mg PO BID 01/18/16 [History] Tramadol HCl/Acetaminophen [Ultracet Tablet] 2 tab PO Q6H PRN 01/18/16 [History] Aspirin 81 mg PO HS 12/06/16 [History] Glimepiride [Amaryl] 4 mg PO QAM 12/06/16 [History] Albuterol Sulfate [Proair Hfa] 2 puff IH Q4H PRN 04/11/17 [History] Diclofenac Sodium [Voltaren] 100 gm TP QID 04/11/17 [History] Dicyclomine [Bentyl] 10 - 20 mg PO QID 04/11/17 [History] Glimepiride [Amaryl] 2 mg PO QPM 04/11/17 [History] Levomefolate/B6/B12/Algal Oil [Metanx Capsule] 2 cap PO DAILY 04/11/17 [History] Metoprolol Succinate 25 mg PO DAILY 04/11/17 [History] Nitroglycerin [Nitrostat] 0.4 mg SL AD PRN 04/11/17 [History] Allergies No Known Allergies Allergy (Verified 12/06/16 14:26) All Systems: A 10-system review of systems was performed and is negative for pertinent findings except as documented above in the HPI. Physical Examination Vital Signs: Vital Signs, Last 4 Hours Temp Pulse Resp BP Pulse Ox 04/15/17 16:45 133 29 113/40 95 06/06/17 15:30 98.3 F Results - Laboratory Findings CBC and BMP: 04/15/17 03:30 04/15/17 03:30 ABG ABG pH 7.40 pH Units (7.32-7.45) 04/15/17 15:58 ABG pCO2 31 mmHg (35-45) L 04/15/17 15:58 ABG pO2 56 mmHg (85-104) L 04/15/17 15:58 ABG O2 Saturation 89 % (95-98) L 04/15/17 15:58 PT/INR, D-dimer PT 15.5 Seconds (9.4-12.1) H 04/15/17 03:30 Abnormal lab findings: Abnormal lab results RBC 2.68 M/mcL (4.19-5.50) L 04/15/17 03:30 Hgb 7.3 g/dL (12.9-16.9) L D 04/15/17 03:30 Hct 22.8 % (37.5-50.1) L 04/15/17 03:30 MCH 27.2 pg (28.0-33.3) L 04/15/17 03:30 RDW 17.2 % (11.5-14.5) H 04/15/17 03:30 PT 15.5 Seconds (9.4-12.1) H 04/15/17 03:30 ABG pCO2 31 mmHg (35-45) L 04/15/17 15:58 ABG pO2 56 mmHg (85-104) L 04/15/17 15:58 ABG HCO3 19.2 mEQ/L (21-27) L 04/15/17 15:58 ABG O2 Saturation 89 % (95-98) L 04/15/17 15:58 ABG Base Excess -4.9 mEq/L (-2.0 to 3.0) L 04/15/17 15:58 ABG Hematocrit 21 % (35-51) L 04/14/17 15:18 Potassium 3.0 mEq/L (3.5-5.3) L 04/14/17 15:18 Glucose 122 mg/dL (60-95) H 04/14/17 15:18 Chloride 110 mEq/L (98-109) H 04/15/17 03:30 Creatinine 1.27 mg/dL (0.72-1.25) H D 04/15/17 03:30 Est GFR (Non-Af Amer) 56 (> 60) L 04/15/17 03:30 Glucose 110 mg/dL (70-99) H 04/15/17 03:30 POC Glucose 156 (58-89) H 04/15/17 17:52 Hemoglobin A1c 6.8 % (-5.6) H 04/11/17 15:41 Calcium 8.1 mg/dL (8.6-10.8) L 04/15/17 03:30 Triglycerides 328 mg/dL (< 150) H 04/11/17 15:41 Cholesterol 232 mg/dL (< 200) H 04/11/17 15:41 LDL Cholesterol, Calc 120 mg/dL (0-99) H 04/11/17 15:41 VLDL Cholesterol, Calc 66 mg/dL (< 31) H 04/11/17 15:41 Cholesterol/HDL Ratio 5.0 (0-4.9) H 04/11/17 15:41 - Clinical Findings Intake & Output: Intake & Output 04/15/17 04/15/17 04/15/17 07:59 15:59 23:59 Intake Total 250 / 250 375 / 375 98 / 98 Output Total 515 / 515 180 / 180 Balance -265 / -265 195 / 195 88 / 88 Consult Discharge Plan - Plan Referrals: Carlo Lomax MD [Primary Care Provider] - - Attending Attestation I examined this patient and my medical decision-making was reviewed with the BUS DRIVER SUPERVISOR/PA/Advanced Practice Nurse/Resident Physician. I agree with the documented findings, disposition and treatment plan as described except to the extent set forth below. I spent 35min of Critical Care time with this patient. It involved decision making of high complexity to assess, manipulate, and support vital organ system failure and/or to prevent further life threatening deterioration of the patient' s condition. The time involved in the performance of separately reportable procedures was not counted toward critical care time. Patient seen and examined at bedside Labs, radiology, chart personally reviewed. All lines examined without evidence of infection. Neuropsych: Fully awake and alert anxious secondary to respiratory distress Pulm: Acute hypoxic respiratory failure suspect secondary to bronchospasm however given degree of hypoxia tachycardia and postoperative status will need to exclude pulmonary embolism with CT angiogram erred ordered immediately. In addition patient has been given bronchodilators for bronchospasm along with IV steroids which can be tapered based upon clinical course repeat chest x-ray shows no change doubt pneumonia or worsening cardiogenic edema. Patient currently requiring positive airway pressure support for work of breathing and to keep saturation greater than 90% with his much is 60-85% FiO2 bleed. Cards:POD#1 status post CABG 3 stable from postoperative period with regards to CABG tachycardia is sinus based upon obtained ECG which is likely related to hypoxia workup as above we will check baseline troponin and BNP. Otherwise hemodynamically stable has been weaned off vasopressor earlier today FEN-GI: Nothing by mouth for now given hypoxia and use of noninvasive positive pressure ventilation once option requirement have declined okay to resume cardiac diet Renal: Mild CORA postoperatively likely secondary to hypotension patient has been receiving small a lot of fluids today rechecking renal function post angiogram will start infusion of crystalloid to prevent contrast-induced nephropathy ID: Possibility of sepsis although I doubt this is the case we will reculture I do not see an acute need for empiric antimicrobials Heme/Onc: History of provoked DVT postoperatively in the past concern for PE at present as above postoperative anemia rechecking H&H transfuse if lower. Endo: Glucose monitor Integ/MSK: Skin care per ICU to prevent ulcers CODE: Full code case discussed with patient and family at bedside <Sheryl Bhagat - Last Filed: 04/15/17 18:35> Date of Encounter: 04/15/17 Time of Encounter: 16:20 Assessment and Plan (1) Acute dyspnea Current Visit: Yes Status: Acute duonebs every 4 hours alternate with albuterol inhaler solumedrol 60 mg 3 times a day BiPAP as needed, high flow oxygen as needed Check CBC, troponin, BNP, blood cultures, urine cultures, sputum cultures --If hemoglobin has dropped below 7, plan to transfuse CTA - if positive, patient will be anticoagulated fully --Start IV fluids at 100 after CTA Neuropsych: Awake and alert Pulm: CXR with no acute process, submental oxygen with BiPAP as needed, DuoNeb every 4 hours alternating with albuterol inhalers, Solu-Medrol 60 mg 3 times a day Cardio: POD#1 CABG x3; on aspirin, levophed weaned earlier today, anticipate restarting home antihypertensives tomorrow a.m.; EKG completed due to tachypnea with dyspnea FEN-GI: GI prophylaxis on board, patient nothing by mouth post surgery Renal: KAIDEN post surgery ID: Patient spiked a fever last night post surgery, MAXIMUM TEMPERATURE 102.8; surgical site with intact clean dressing with chest tubes. Brooks culture. Heme/Onc: Concern for PE due to patient history of a provoked PE after neck surgery in 2009. His last dose of Lovenox was 6/4 PM dose. PE clinical probability score of 7.5, high pre-test probability, 67% prevalence. CTA ordered. Endocrine: DM; patient has been nothing by mouth and on insulin drip post surgery Full code (2) Status post coronary artery bypass graft Current Visit: Yes Status: Acute (3) CAD (coronary artery disease) Current Visit: Yes Status: Acute Qualifiers: Coronary Disease-Associated Artery/Lesion type: [place] artery [place] vs. transplanted heart: [place] heart Associated angina: with stable angina Qualified Code(s): I25.118 - Atherosclerotic heart disease of [place] coronary artery with other forms of angina pectoris (4) HLD (hyperlipidemia) Current Visit: No Status: Chronic Qualifiers: Hyperlipidemia type: unspecified Qualified Code(s): E78.5 - Hyperlipidemia , unspecified (5) HTN (hypertension) Current Visit: No Status: Chronic Qualifiers: Hypertension type: essential hypertension Qualified Code(s): I10 - Essential (primary) hypertension (6) DMII (diabetes mellitus, type 2) Current Visit: No Status: Chronic Qualifiers: Diabetes mellitus complication status: with unspecified complications Diabetes mellitus technician terminal and repeater insulin use: unspecified technician terminal and repeater insulin use status Qualified Code(s): E11.8 - Type 2 diabetes mellitus with unspecified complications History of Present Illness Consult date: 04/15/17 Requesting physician: China Templeton Reason for consult: dyspnea Chief complaint: sudden onset dyspnea History of present illness: Mr. Moncada is a 72-year-old past medical history of type 2 diabetes, hypertension, hypercholesterolemia, asthma, and coronary artery disease postop day #1 four-vessel CABG he developed sudden onset dyspnea with tachypnea. The patient and his family state that he has an albuterol inhaler that he uses infrequently to rarely for his asthma. He has no known triggers of his asthma. He has seen a systems applications programming lead in [place]. Past Med Surg Social Fam HX - Past Medical History Medical history: arthritis, asthma, coronary artery disease, diabetes, hyperlipidemia, hypertension Psychiatric history: no psych history - Past Surgical History Surgical History: cholecystectomy, knee replacement, orthopedic, other, other ( Cervical fusion 3, lumbar fusion) - Social History Smoking Status: Never smoker Smokeless Tobacco Status: No Alcohol use: none Drug use: none - Family History Mother Hx Family Cancer: Yes Father Hx Family Cardiac Disorders: Yes Hx Family Endocrine Disorder: Yes All Systems: A 10-system review of systems was performed and is negative for pertinent findings except as documented above in the HPI. - Constitutional Constitutional: fever(s) - Cardiovascular Cardiovascular: chest pain (Expected postsurgical), dyspnea, rapid heart rate - Respiratory Respiratory: wheezing - Gastrointestinal Gastrointestinal: no diarrhea, no nausea, no vomiting - Neurological Neurological: no abnormal movements, no abnormal speech, no behavioral changes Physical Examination Vital Signs: Vital Signs, Last 4 Hours Pulse Resp BP Pulse Ox 04/15/17 14:00 92 27 144/52 92 04/15/17 13:00 84 26 111/45 94 General appearance: other (Dyspneic) Eyes: nonicteric ENT: oropharynx moist Neck: supple, no JVD Effort: mildly labored Inspection: normal Auscultation: bilateral: diminished breath sounds, other (upper airway sounds "wheezes") Cardiovascular: other (Tachypneic) Integumentary: normal normal mental status, non-focal exam mood appropriate, affect normal Results - Laboratory Findings CBC and BMP: 04/15/17 03:30 04/15/17 03:30 ABG ABG pH 7.39 pH Units (7.32-7.45) 04/14/17 23:35 ABG pCO2 42 mmHg (35-45) 04/14/17 23:35 ABG pO2 68 mmHg (85-104) L 04/14/17 23:35 ABG O2 Saturation 93 % (95-98) L 04/14/17 23:35 PT/INR, D-dimer PT 15.5 Seconds (9.4-12.1) H 04/15/17 03:30 Abnormal lab findings: Abnormal lab results RBC 2.68 M/mcL (4.19-5.50) L 04/15/17 03:30 Hgb 7.3 g/dL (12.9-16.9) L D 04/15/17 03:30 Hct 22.8 % (37.5-50.1) L 04/15/17 03:30 MCH 27.2 pg (28.0-33.3) L 04/15/17 03:30 RDW 17.2 % (11.5-14.5) H 04/15/17 03:30 PT 15.5 Seconds (9.4-12.1) H 04/15/17 03:30 ABG pO2 68 mmHg (85-104) L 04/14/17 23:35 ABG Total CO2 26.7 mEq/L (20-26) H 04/14/17 23:35 ABG O2 Saturation 93 % (95-98) L 04/14/17 23:35 ABG Hematocrit 21 % (35-51) L 04/14/17 15:18 Potassium 3.0 mEq/L (3.5-5.3) L 04/14/17 15:18 Glucose 122 mg/dL (60-95) H 04/14/17 15:18 Chloride 110 mEq/L (98-109) H 04/15/17 03:30 Creatinine 1.27 mg/dL (0.72-1.25) H D 04/15/17 03:30 Est GFR (Non-Af Amer) 56 (> 60) L 04/15/17 03:30 Glucose 110 mg/dL (70-99) H 04/15/17 03:30 POC Glucose 141 (58-89) H 04/15/17 14:48 Hemoglobin A1c 6.8 % (-5.6) H 04/11/17 15:41 Calcium 8.1 mg/dL (8.6-10.8) L 04/15/17 03:30 Triglycerides 328 mg/dL (< 150) H 04/11/17 15:41 Cholesterol 232 mg/dL (< 200) H 04/11/17 15:41 LDL Cholesterol, Calc 120 mg/dL (0-99) H 04/11/17 15:41 VLDL Cholesterol, Calc 66 mg/dL (< 31) H 04/11/17 15:41 Cholesterol/HDL Ratio 5.0 (0-4.9) H 04/11/17 15:41 - Clinical Findings Intake & Output: Intake & Output 04/15/17 04/15/17 04/15/17 07:59 15:59 23:59 Intake Total 250 / 250 360 / 360 Output Total 515 / 515 180 / 180 Balance -265 / -265 180 / 180
[2017-04-15] MEDS ORDERED: Ipratropium/Albuterol Neb 3 ML IH ONE (16:45)
[2017-04-15] MEDS ORDERED: D5% in Water 1,000 ML IVC PRN ×2 (19:25→19:31)
[2017-04-15] MEDS ORDERED: *HR* Dextrose 50 % in Water (Syg) 50 ML SYRINGE IVP PRN (19:31)
[2017-04-15] MEDS ORDERED: Dextrose Gel 15 GM PO PRN ×2 (19:31)
[2017-04-15 19:36] LABS: Hematocrit 24.8 % (37.5-50.1); Mean Corpuscular HGB Conc 32.3 g/dL (31.6-35.5); Mean Corpuscular Hemoglobin 28.3 pg (28.0-33.3); Mean Corpuscular Volume 87.6 fL (83.0-100.0); Mean Platelet Volume 10.7 fL (9.4-12.4); Platelet Count 171 K/mcL (140-400); Red Blood Count 2.83 M/mcL (4.19-5.50); Red Cell Distribution Width 17.6 % (11.5-14.5)
[2017-04-15 19:59] LABS: Lymphocytes # 0.7 K/mcL (0.6-4.6); Monocytes # 1.3 K/mcL (0.0-1.3); Neutrophils # 7.1 K/mcL (1.6-8.9); Platelet Estimate Normal (Normal)
[2017-04-15] MEDS: Ipratropium/Albuterol Neb 3 ML IH SCH ×2 (20:01→23:30)
[2017-04-15] MEDS ORDERED: 0.9 % Sodium Chloride 1,000 ML IVC SCH (20:15)
[2017-04-15] MEDS: 0.9 % Sodium Chloride 1,000 ML IVC SCH (20:22)
[2017-04-15] MEDS: Acetaminophen 325 MG TABLET PO PRN (20:24)
[2017-04-15] MEDS: Insulin LISPRO 300 UNITS/3 ML VIAL SQ SCH (20:33)
[2017-04-15] MEDS: Vancomycin 1,500 MG in D5% in Water 250 ML IVPB SCH (21:10)
[2017-04-15] MEDS: *HR* Heparin 5,000 UNIT/ML VIAL SQ SCH (21:21)
[2017-04-15] MEDS ORDERED: Ipratropium/Albuterol Neb 3 ML IH SCH (22:00)
[2017-04-15] MEDS ORDERED: Amiodarone Premix 150 MG/100 ML BAG IVPB ONE (22:46)
[2017-04-15] MEDS ORDERED: Amiodarone 300 MG in D5% in Water 100 ML IVPB SCH (22:53)
[2017-04-15] MEDS ORDERED: Amiodarone Premix 360 MG/200 ML BAG IVC ONE (22:59)
[2017-04-15] MEDS: Norepinephrine 4 MG in D5% in Water 250 ML IVC SCH (23:29)
--- NOTE | 2017-04-15 23:50 | Electrocardiograph Report ---
[place] [id number] Test Date: 2017-04-14 Pat Name: Jovi Moncada Department: 109 Room: [facility] Gender: M Process Artist: SARI : 1945 Requested By: China Templeton Order Number: [id number] Reading MD: Krupa Chapman Measurements Intervals Neal Rate: 77 P: 14 RI: 205 QRS: -28 QRSD: 124 T: -2 QT: 394 QTc: 426 Interpretive Statements SINUS RHYTHM RIGHT BUNDLE BRANCH BLOCK INFERIOR MYOCARDIAL INFARCTION, PROBABLY OLD Electronically Signed On 04-15-2017 23:49:04 EDT by Krupa Chapman
[2017-04-16] MEDS: Metoclopramide 10 MG/2 ML VIAL IVP SCH ×5 (00:37→17:02)
[2017-04-16] MEDS: methylPREDNISolone 125 MG/2 ML VIAL IVP SCH ×3 (00:38→15:51)
[2017-04-16] MEDS: 0.9 % Sodium Chloride 1,000 ML IVC SCH (03:54)
[2017-04-16] MEDS: Ipratropium/Albuterol Neb 3 ML IH SCH ×2 (03:58→06:18)
[2017-04-16 04:04] LABS: Hematocrit 23.5 % (37.5-50.1); Hemoglobin 7.6 g/dL (12.9-16.9); Immature Granulocytes % 0.6 % (0-4); Lymphocytes # 0.4 K/mcL (0.6-4.6); Lymphocytes % 4.3 %; Mean Corpuscular HGB Conc 32.3 g/dL (31.6-35.5); Mean Corpuscular Hemoglobin 27.6 pg (28.0-33.3); Mean Corpuscular Volume 85.5 fL (83.0-100.0); Mean Platelet Volume 10.8 fL (9.4-12.4); Monocytes # 0.5 K/mcL (0.0-1.3); Monocytes % 6.1 %; Neutrophils # 7.7 K/mcL (1.6-8.9); Platelet Count 157 K/mcL (140-400); Red Blood Count 2.75 M/mcL (4.19-5.50); Red Cell Distribution Width 17.8 % (11.5-14.5)
[2017-04-16 04:15] LABS: Calcium 7.6 mg/dL (8.6-10.8)
[2017-04-16] MEDS: Amiodarone Premix 360 MG/200 ML BAG IVC SCH (05:26)
[2017-04-16] MEDS: *HR* Heparin 5,000 UNIT/ML VIAL SQ SCH ×3 (05:36→20:10)
[2017-04-16] MEDS: *HR* Morphine 2 MG/ML SYRINGE IVP PRN (06:15)
--- NOTE | 2017-04-16 06:51 | Pulmonology Progress Note ---
<Sheryl Bhagat - Last Filed: 04/16/17 10:54> Date of Encounter: 04/16/17 Time of Encounter: 06:55 Assessment and Plan (1) Acute dyspnea Current Visit: Yes Status: Acute Neuropsych: Awake and alert Pulm: CTA negative for PE; supplemental oxygen with BiPAP PRN, Xopenex nebulizers PRN, Solu-Medrol 60 mg TID Cardio: POD#2 CABG x3; on ASA, statin will be restarted this evening; amiodarone drip due to A. fib with RVR (currently sinus rhythm) FEN-GI: GI prophylaxis on board, cardiac diet Renal: KAIDEN post surgery and CT angiogram ID: Patient spiked a fever the past 3 nights, MAXIMUM TEMPERATURE 102.8, maximum temperature past 24 hours 102; blood cultures pending, urine cultures and sputum cultures ordered; broad-spectrum antibiotic coverage with vancomycin and Zosyn Heme/Onc: CT angiogram negative for PE. DVT prophylaxis with SQ heparin q8h Endocrine: DM; sliding scale insulin Full code (2) Fever Current Visit: Yes Status: Acute Patient has spiked fevers the last 3 nights Blood cultures drawn Urine cultures and sputum cultures ordered Vancomycin and Zosyn started 04/15 Qualifiers: Fever type: unspecified Qualified Code(s): R50.9 - Fever, unspecified (3) Atrial fibrillation with RVR Current Visit: Yes Status: Acute converted back to sinus rhythm with amiodarone drip (4) Status post coronary artery bypass graft Current Visit: Yes Status: Acute (5) CAD (coronary artery disease) Current Visit: Yes Status: Chronic Qualifiers: Coronary Disease-Associated Artery/Lesion type: [place] artery [place] vs. transplanted heart: [place] heart Associated angina: with stable angina Qualified Code(s): I25.118 - Atherosclerotic heart disease of [place] coronary artery with other forms of angina pectoris (6) HLD (hyperlipidemia) Current Visit: No Status: Chronic Qualifiers: Hyperlipidemia type: unspecified Qualified Code(s): E78.5 - Hyperlipidemia , unspecified (7) HTN (hypertension) Current Visit: No Status: Chronic Qualifiers: Hypertension type: essential hypertension Qualified Code(s): I10 - Essential (primary) hypertension (8) DMII (diabetes mellitus, type 2) Current Visit: No Status: Chronic Qualifiers: Diabetes mellitus complication status: with unspecified complications Diabetes mellitus intermediate card tender insulin use: unspecified intermediate card tender insulin use status Qualified Code(s): E11.8 - Type 2 diabetes mellitus with unspecified complications Subjective Principal diagnosis: CAD Interval history: Patient with A. fib RVR overnight. Amiodarone drip started and patient converted to normal sinus rhythm. Also with fever overnight, temperature max 102. Objective PUL Vital signs: Last Vital Signs Temp 98.5 F 04/16/17 04:05 Pulse 118 04/16/17 06:00 Resp 32 04/16/17 06:29 BP 153/46 04/16/17 06:29 Pulse Ox 95 04/16/17 06:29 General appearance: no acute distress Eyes: nonicteric ENT: oropharynx moist Neck: supple Effort: normal Auscultation: bilateral: diminished breath sounds Cardiovascular: regular rate and rhythm Gastrointestinal: normoactive bowel sounds, soft, non-tender Integumentary: normal Extremities: no edema Results - Laboratory Findings CBC and BMP: 04/16/17 03:55 04/16/17 03:55 ABG ABG pH 7.40 pH Units (7.32-7.45) 04/15/17 15:58 ABG pCO2 31 mmHg (35-45) L 04/15/17 15:58 ABG pO2 56 mmHg (85-104) L 04/15/17 15:58 ABG O2 Saturation 89 % (95-98) L 04/15/17 15:58 PT/INR, D-dimer PT 15.5 Seconds (9.4-12.1) H 04/15/17 03:30 Abnormal lab findings: Abnormal lab results RBC 2.75 M/mcL (4.19-5.50) L 04/16/17 03:55 Hgb 7.6 g/dL (12.9-16.9) L 04/16/17 03:55 Hct 23.5 % (37.5-50.1) L 04/16/17 03:55 MCH 27.6 pg (28.0-33.3) L 04/16/17 03:55 RDW 17.8 % (11.5-14.5) H 04/16/17 03:55 Band Neutrophils % 28.0 % (0-4) H 04/15/17 19:26 Lymphocytes # 0.4 K/mcL (0.6-4.6) L 04/16/17 03:55 PT 15.5 Seconds (9.4-12.1) H 04/15/17 03:30 ABG pCO2 31 mmHg (35-45) L 04/15/17 15:58 ABG pO2 56 mmHg (85-104) L 04/15/17 15:58 ABG HCO3 19.2 mEQ/L (21-27) L 04/15/17 15:58 ABG O2 Saturation 89 % (95-98) L 04/15/17 15:58 ABG Base Excess -4.9 mEq/L (-2.0 to 3.0) L 04/15/17 15:58 ABG Hematocrit 21 % (35-51) L 04/14/17 15:18 Potassium 3.0 mEq/L (3.5-5.3) L 04/14/17 15:18 Glucose 122 mg/dL (60-95) H 04/14/17 15:18 BUN 28 mg/dL (8-26) H D 04/16/17 03:55 Creatinine 1.47 mg/dL (0.72-1.25) H 04/16/17 03:55 Est GFR ( Amer) 57 (> 60) L 04/16/17 03:55 Est GFR (Non-Af Amer) 47 (> 60) L 04/16/17 03:55 Glucose 247 mg/dL (70-99) H 04/16/17 03:55 POC Glucose 187 (58-89) H 04/15/17 19:30 Hemoglobin A1c 6.8 % (-5.6) H 04/11/17 15:41 Calculated Osmolality 302 (280-300) H 04/16/17 03:55 Calcium 7.6 mg/dL (8.6-10.8) L 04/16/17 03:55 Troponin I 0.49 ng/mL (0-0.03) H* 04/15/17 19:26 B-Natriuretic Peptide 372 pg/mL (0-100) H 04/15/17 19:26 Triglycerides 328 mg/dL (< 150) H 04/11/17 15:41 Cholesterol 232 mg/dL (< 200) H 04/11/17 15:41 LDL Cholesterol, Calc 120 mg/dL (0-99) H 04/11/17 15:41 VLDL Cholesterol, Calc 66 mg/dL (< 31) H 04/11/17 15:41 Cholesterol/HDL Ratio 5.0 (0-4.9) H 04/11/17 15:41 - Clinical Findings Intake & Output: Intake & Output 04/15/17 04/15/17 04/16/17 15:59 23:59 07:59 Intake Total 375 / 375 818 / 818 300 / 300 Output Total 180 / 180 734 / 734 703 / 703 Balance 195 / 195 84 / 84 -403 / -403 Weight 108.726 kg - VTE Documentation of Mechanical Device: Graduated compression elastic hosiery Consult Discharge Plan - Plan Referrals: Dami,Carlo West MD [Primary Care Provider] - <Hosea Corbett - Last Filed: 04/16/17 12:26> Date of Encounter: 04/16/17 Objective PUL Vital signs: Last Vital Signs Temp 98.2 F 04/16/17 07:44 Pulse 116 04/16/17 09:00 Resp 24 04/16/17 09:00 BP 128/47 04/16/17 09:00 Pulse Ox 92 04/16/17 09:00 Results - Laboratory Findings CBC and BMP: 04/16/17 03:55 04/16/17 03:55 ABG ABG pH 7.40 pH Units (7.32-7.45) 04/15/17 15:58 ABG pCO2 31 mmHg (35-45) L 04/15/17 15:58 ABG pO2 56 mmHg (85-104) L 04/15/17 15:58 ABG O2 Saturation 89 % (95-98) L 04/15/17 15:58 PT/INR, D-dimer PT 15.5 Seconds (9.4-12.1) H 04/15/17 03:30 Abnormal lab findings: Abnormal lab results RBC 2.75 M/mcL (4.19-5.50) L 04/16/17 03:55 Hgb 7.6 g/dL (12.9-16.9) L 04/16/17 03:55 Hct 23.5 % (37.5-50.1) L 04/16/17 03:55 MCH 27.6 pg (28.0-33.3) L 04/16/17 03:55 RDW 17.8 % (11.5-14.5) H 04/16/17 03:55 Band Neutrophils % 28.0 % (0-4) H 04/15/17 19:26 Lymphocytes # 0.4 K/mcL (0.6-4.6) L 04/16/17 03:55 PT 15.5 Seconds (9.4-12.1) H 04/15/17 03:30 ABG pCO2 31 mmHg (35-45) L 04/15/17 15:58 ABG pO2 56 mmHg (85-104) L 04/15/17 15:58 ABG HCO3 19.2 mEQ/L (21-27) L 04/15/17 15:58 ABG O2 Saturation 89 % (95-98) L 04/15/17 15:58 ABG Base Excess -4.9 mEq/L (-2.0 to 3.0) L 04/15/17 15:58 ABG Hematocrit 21 % (35-51) L 04/14/17 15:18 Potassium 3.0 mEq/L (3.5-5.3) L 04/14/17 15:18 Glucose 122 mg/dL (60-95) H 04/14/17 15:18 BUN 28 mg/dL (8-26) H D 04/16/17 03:55 Creatinine 1.47 mg/dL (0.72-1.25) H 04/16/17 03:55 Est GFR ( Amer) 57 (> 60) L 04/16/17 03:55 Est GFR (Non-Af Amer) 47 (> 60) L 04/16/17 03:55 Glucose 247 mg/dL (70-99) H 04/16/17 03:55 POC Glucose 274 (58-89) H 04/16/17 07:24 Hemoglobin A1c 6.8 % (-5.6) H 04/11/17 15:41 Calculated Osmolality 302 (280-300) H 04/16/17 03:55 Calcium 7.6 mg/dL (8.6-10.8) L 04/16/17 03:55 Ionized Calcium 0.66 mmol/L (1.15-1.35) L 04/16/17 03:55 Troponin I 0.49 ng/mL (0-0.03) H* 04/15/17 19:26 B-Natriuretic Peptide 372 pg/mL (0-100) H 04/15/17 19:26 Triglycerides 328 mg/dL (< 150) H 04/11/17 15:41 Cholesterol 232 mg/dL (< 200) H 04/11/17 15:41 LDL Cholesterol, Calc 120 mg/dL (0-99) H 04/11/17 15:41 VLDL Cholesterol, Calc 66 mg/dL (< 31) H 04/11/17 15:41 Cholesterol/HDL Ratio 5.0 (0-4.9) H 04/11/17 15:41 - Clinical Findings Intake & Output: Intake & Output 04/15/17 04/16/17 04/16/17 23:59 07:59 15:59 Intake Total 818 / 818 442 / 442 490 / 490 Output Total 734 / 734 903 / 903 0 / 0 Balance 84 / 84 -461 / -461 490 / 490 Weight 108.726 kg - Attending Attestation I examined this patient and my medical decision-making was reviewed with the PROJECT DIRECTOR/PA/Advanced Practice Nurse/Resident Physician. I agree with the documented findings, disposition and treatment plan as described except to the extent set forth below. Patient seen and examined at bedside Labs, radiology, chart personally reviewed. All lines examined without evidence of infection. Neuropsych: Fully awake and alert anxious secondary to respiratory distress Pulm: Acute hypoxic respiratory failure suspect secondary to bronchospasm possibly s/t use of bronchodilators. cont steroids today stop BDs. Wean Fio2. CTA negative for PE. Likely mild Pulmonary Edema holding diuresis s/t KAIDEN. Chest tubes removed today by CTS Cards:POD#2 status post CABG 3 afib overnight with mild hypotension amiodarone gtt started with conversion cont today. Now hypertensive on niro infusion. cont to wean. cont ASA FEN-GI: Cont Cardiac Diet as tolerated. Renal: Mild worsening of KAIDEN Good uop net plan for net + volume status today. Replace lytes per protocol. ID: Febrile overnight tachycardic concern for Sepsis, mendes cultures obtain, ABx started for HAP organsism. deescalate in 24 hours pending cultures. Lactate Nomral Heme/Onc: DVT prophylaxis given Endo: Glucose monitor Integ/MSK: Skin care per ICU to prevent ulcers CODE: Full code
[2017-04-16 06:55] LABS: Ionized Calcium 0.66 mmol/L (1.15-1.35)
--- NOTE | 2017-04-16 06:59 | Cardiothoracic Progress Note ---
Date of Encounter: 04/16/17 Time of Encounter: 06:57 - Assessment and plan (1) CAD (coronary artery disease) Current Visit: Yes Status: Acute The patient is recovering well from his CABG 3. He is eating comfortably, although he appears to have a proximal effect to his breathing treatments. The inhaler will be changed to levoalbuterol. The chest tube removed. The patient will be monitored in the ICU today. The assessment and plan as outlined above was discussed with the patient and/or family members who expressed understanding and agreement. All questions were answered. Qualifiers: Coronary Disease-Associated Artery/Lesion type: [place] artery [place] vs. transplanted heart: [place] heart Associated angina: with stable angina Qualified Code(s): I25.118 - Atherosclerotic heart disease of [place] coronary artery with other forms of angina pectoris - Subjective Procedure(s) Performed: POD# S/P CABG3 Interval history: The patient remained hemodynamically stable overnight. He had atrial fibrillation which converted to normal sinus rhythm on amiodarone drip.. He is breathing comfortably, although he seems to have paroxysmal response to his breathing treatments manifested by bronchospasm, tachycardia, and hypertension. Vital Signs, Last 4 Hours Temp Pulse Resp BP Pulse Ox 04/16/17 06:29 32 153/46 95 04/16/17 06:19 24 88 04/16/17 06:00 118 26 156/47 94 04/16/17 05:00 78 21 93/60 96 04/16/17 04:05 98.5 F 04/16/17 04:00 75 04/16/17 03:00 75 25 102/47 92 Oxgyen Flow Rate Oxygen Flow Rate (LPM) 5 Clinical Data, last 8 Hours Output, Chest Tube Drainage 0 Amount [Mediastinal #2] Output, Chest Tube Drainage 0 Amount [Mediastinal #2] Output, Chest Tube Drainage 14 Amount [Mediastinal #2] Output, Chest Tube Drainage 0 Amount [Mediastinal #1] Output, Chest Tube Drainage 0 Amount [Mediastinal #1] Output, Chest Tube Drainage 14 Amount [Mediastinal #1] Output, Urine Amount [Urethral 200 (Crump)] Output, Urine Amount [Urethral 200 (Crump)] Weight 04/14/17 04/15/17 04/16/17 23:59 23:59 23:59 Weight 108.726 kg - Physical Examination General: Conversant, No Apparent Distress Neck: No JVD, Normal carotid pulses Cardiac: Reg Rate and Rhythm, Normal S1 and S2, No Murmur Incision: No signs of infection, Dry/intact dressing Sternum: Stable Chest tubes: Minimal drainage, Other (No air leak.) Lungs: Normal Breath Sounds, No Wheeze, Rales, Rhonchi Neuro: Alert and responsive, No focal deficits noted Vascular: Normal capillary refill Extremities: No Clubbing, No Cyanosis, No Edema - Labs 04/16/17 03:55 04/16/17 03:55 Lab Results, Last 24 hours 04/15/17 04/15/17 04/15/17 19:26 19:26 19:26 WBC 9.1 Hgb 8.0 L Hct 24.8 L Plt Count 171 Sodium Potassium Chloride Carbon Dioxide BUN Creatinine Glucose Calcium Troponin I 0.49 H* B-Natriuretic Peptide 372 H 04/16/17 04/16/17 03:55 03:55 WBC 8.7 Hgb 7.6 L Hct 23.5 L Plt Count 157 Sodium 139 Potassium 4.0 Chloride 109 Carbon Dioxide 19 BUN 28 H D Creatinine 1.47 H Glucose 247 H Calcium 7.6 L Troponin I B-Natriuretic Peptide - VTE Documentation of Mechanical Device: Graduated compression elastic hosiery Consult Discharge Plan - Plan Referrals: Carlo Lomax MD [Primary Care Provider] -
[2017-04-16] MEDS: Nitroglycerin 25 MG/250 ML INFUS..BTL IVC SCH ×4 (07:42→15:51)
[2017-04-16] MEDS: niCARdipine 40 MG/200 ML MLS IVC SCH ×4 (07:43→17:03)
[2017-04-16] MEDS: Ipratropium Neb 0.5 MG NEBULIZER IH SCH ×2 (07:57→10:29)
[2017-04-16] MEDS: Gabapentin 300 MG CAPSULE PO SCH ×3 (08:05→20:09)
[2017-04-16] MEDS: Aspirin Enteric Coated 81 MG Tablet PO SCH (08:06)
[2017-04-16] MEDS: Furosemide 20 MG/2 ML VIAL IVP SCH ×2 (08:06→20:10)
[2017-04-16] MEDS: *HR* OxyCODONE/APAP 5/325 TABLET PO PRN ×3 (08:06→20:10)
[2017-04-16] MEDS: Pantoprazole 40 MG VIAL IVP SCH (08:06)
[2017-04-16] MEDS: Insulin LISPRO 300 UNITS/3 ML VIAL SQ SCH ×4 (08:40→21:15)
[2017-04-16] MEDS: Vancomycin 1,500 MG in D5% in Water 250 ML IVPB SCH (09:16)
[2017-04-16] MEDS: Calcium Chloride 1,000 MG in 0.9 % Sodium Chloride 100 ML IVPB PRN (09:16)
[2017-04-16] MEDS ORDERED: Levalbuterol Neb 1.25 MG/3 ML IH SCH (10:00)
[2017-04-16] MEDS ORDERED: Levalbuterol Neb 1.25 MG/3 ML IH PRN (10:49)
[2017-04-16] MEDS ORDERED: Aminoglycoside Consult 1 EACH MC ONE (12:00)
[2017-04-16] MEDS ORDERED: Vancomycin 1,500 MG in D5% in Water 250 ML IVPB SCH (15:00)
--- NOTE | 2017-04-16 15:28 | Electrocardiograph Report ---
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
--- NOTE | 2017-04-16 15:33 | Electrocardiograph Report ---
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
[2017-04-16 16:59] LABS: Albumin 3.1 g/dL (3.5-5.0); Phosphorous 3.3 mg/dL (2.3-4.7); Potassium 4.2 mEq/L (3.5-4.5)
[2017-04-16] MEDS ORDERED: Ipratropium 1 PUFF INHALER IH PRN (16:59)
[2017-04-16 17:01] LABS: Calcium 8.8 mg/dL (8.6-10.8)
[2017-04-16 17:58] LABS: Magnesium 2.5 mg/dL (1.6-2.6)
[2017-04-16] MEDS: Piperacillin/Tazobactam 3.375 GM in D5% in Water (Mini-Bag+) 100 ML IVPB SCH (21:16)
[2017-04-17] MEDS: Nitroglycerin 25 MG/250 ML INFUS..BTL IVC SCH
[2017-04-17] MEDS: Metoclopramide 10 MG/2 ML VIAL IVP SCH ×4 (00:18→17:59)
[2017-04-17 03:28] LABS: Basophils % 0.1 %; Hematocrit 21.1 % (37.5-50.1); Hemoglobin 6.9 g/dL (12.9-16.9); Immature Granulocytes % 1.1 % (0-4); Lymphocytes # 0.6 K/mcL (0.6-4.6); Lymphocytes % 4.2 %; Mean Corpuscular HGB Conc 32.7 g/dL (31.6-35.5); Mean Corpuscular Hemoglobin 27.4 pg (28.0-33.3); Mean Corpuscular Volume 83.7 fL (83.0-100.0); Mean Platelet Volume 10.9 fL (9.4-12.4); Monocytes # 0.9 K/mcL (0.0-1.3); Neutrophils # 11.6 K/mcL (1.6-8.9); Platelet Count 207 K/mcL (140-400); Red Blood Count 2.52 M/mcL (4.19-5.50); Red Cell Distribution Width 17.8 % (11.5-14.5); Segmented Neutrophils % 87.6 %
[2017-04-17 03:45] LABS: Albumin 2.8 g/dL (3.5-5.0); Albumin/Globulin Ratio 0.9 (1.1-2.2); Bilirubin,Total 0.3 mg/dL (0.2-1.2); Calcium 8.6 mg/dL (8.6-10.8); Globulin 3.1 g/dL (2.4-3.5); Total Protein 5.9 g/dL (6.0-8.3)
[2017-04-17 04:54] LABS: Ionized Calcium 1.08 mmol/L (1.15-1.35)
[2017-04-17 04:57] LABS: Magnesium 2.2 mg/dL (1.6-2.6)
[2017-04-17] MEDS: *HR* Heparin 5,000 UNIT/ML VIAL SQ SCH ×2 (05:32→17:59)
[2017-04-17] MEDS: Piperacillin/Tazobactam 3.375 GM in D5% in Water (Mini-Bag+) 100 ML IVPB SCH (05:32)
[2017-04-17] MEDS: Amiodarone Premix 360 MG/200 ML BAG IVC SCH (06:11)
[2017-04-17] MEDS: Calcium Chloride 1,000 MG in 0.9 % Sodium Chloride 100 ML IVPB PRN (06:13)
[2017-04-17] MEDS ORDERED: 0.9 % Sodium Chloride 1,000 ML IVC SCH (06:30)
--- NOTE | 2017-04-17 06:55 | Cardiothoracic Progress Note ---
Date of Encounter: 04/17/17 Time of Encounter: 06:50 - Assessment and plan (1) CAD (coronary artery disease) Current Visit: Yes Status: Chronic The patient is recovering well from his CABG 3. He is sitting in chair and is breathing comfortably. He has no complaints. His creatinine has increased and I have consulted nephrology to evaluate the patient. The patient was transferred to a stepdown unit later today. The assessment and plan as outlined above was discussed with the patient and/or family members who expressed understanding and agreement. All questions were answered. Qualifiers: Coronary Disease-Associated Artery/Lesion type: [place] artery [place] vs. transplanted heart: [place] heart Associated angina: with stable angina Qualified Code(s): I25.118 - Atherosclerotic heart disease of [place] coronary artery with other forms of angina pectoris - Subjective Procedure(s) Performed: POD#3 S/P CABG3 Interval history: The patient remained hemodynamically stable overnight. He is sitting in a chair breathing comfortably. He has no complaints. Vital Signs, Last 4 Hours Temp Pulse Resp BP Pulse Ox 04/17/17 06:00 100 18 134/69 94 04/17/17 05:00 67 10 108/61 96 04/17/17 04:16 21 99/59 97 04/17/17 04:00 99.2 F 74 14 106/61 97 04/17/17 03:00 80 12 103/62 96 Oxgyen Flow Rate Oxygen Flow Rate (LPM) 4 Weight 04/15/17 04/16/17 04/17/17 23:59 23:59 23:59 Weight 108.726 kg - Physical Examination General: Conversant, No Apparent Distress Neck: No JVD, Normal carotid pulses Cardiac: Reg Rate and Rhythm, Normal S1 and S2, No Murmur Incision: No signs of infection, Dry/intact dressing Sternum: Stable Pacing Wires: In place Lungs: Normal Breath Sounds, No Wheeze, Rales, Rhonchi Neuro: Alert and responsive, No focal deficits noted Vascular: Normal capillary refill Musculoskeletal: No Chest Wall Tenderness Extremities: No Clubbing, No Cyanosis, No Edema - Labs 04/17/17 03:20 04/17/17 03:20 Lab Results, Last 24 hours 04/16/17 04/17/17 04/17/17 16:25 03:20 03:20 WBC 13.2 H D Hgb 6.9 L Hct 21.1 L Plt Count 207 Sodium 134 L 131 L Potassium 4.2 4.0 Chloride 103 102 Carbon Dioxide 18 L 19 BUN 44 H D 54 H Creatinine 1.95 H 2.22 H Glucose 172 H 229 H Calcium 8.8 D 8.6 Magnesium 2.5 Total Bilirubin 0.3 AST 83 H ALT 27 Alkaline Phosphatase 59 04/17/17 03:20 WBC Hgb Hct Plt Count Sodium Potassium Chloride Carbon Dioxide BUN Creatinine Glucose Calcium Magnesium 2.2 Total Bilirubin AST ALT Alkaline Phosphatase - Imaging Chest Xray: image reviewed (No pneumothorax. Persistent left lower lobe atelectasis.) - VTE Documentation of Mechanical Device: Graduated compression elastic hosiery Consult Discharge Plan - Plan Referrals: Carlo Lomax MD [Primary Care Provider] -
--- NOTE | 2017-04-17 06:55 | Pulmonology Progress Note ---
<AlfredomiekkeilaSheryl bowers - Last Filed: 04/17/17 10:43> Date of Encounter: 04/17/17 Time of Encounter: 08:23 Assessment and Plan (1) Acute dyspnea Current Visit: Yes Status: Acute Neuropsych: Awake and alert Pulm: supplemental oxygen with BiPAP PRN, Ipratropium inhaler PRN Cardio: POD#3 CABG x3 --on ASA, statin --amiodarone for post-op A. fib with RVR (currently sinus rhythm) FEN-GI: GI prophylaxis on board, cardiac diet Renal: KAIDEN- multifactorial, post CABG, A. fib RVR, CTA, vancomycin, anemia - blood transfusion planned for today due to anemia ID: new leukocytosis - likely due to steroid use --nightly fevers 6/4-6/6, MAXIMUM TEMPERATURE 102.8 --blood cultures pending, urine cultures preliminary no growth, sputum cultures ordered -- stop vancomycin and Zosyn Heme/Onc: --Transfuse 1 unit pRBC due to acute on chronic anemia --DVT prophylaxis with SQ heparin q8h Endocrine: DM; sliding scale insulin Integ/MSK: new/increased edema of left hand - encourage movement Full code (2) Fever Current Visit: Yes Status: Acute Patient spiked fevers overnight /-6 Blood cultures pending Urine cultures preliminary no growth sputum cultures ordered Vancomycin and Zosyn started 6 Qualifiers: Fever type: unspecified Qualified Code(s): R50.9 - Fever, unspecified (3) Atrial fibrillation with RVR Current Visit: Yes Status: Acute converted back to sinus rhythm with amiodarone drip (4) Status post coronary artery bypass graft Current Visit: Yes Status: Acute (5) CAD (coronary artery disease) Current Visit: Yes Status: Chronic Qualifiers: Coronary Disease-Associated Artery/Lesion type: [place] artery [place] vs. transplanted heart: [place] heart Associated angina: with stable angina Qualified Code(s): I25.118 - Atherosclerotic heart disease of [place] coronary artery with other forms of angina pectoris (6) HLD (hyperlipidemia) Current Visit: No Status: Chronic Qualifiers: Hyperlipidemia type: unspecified Qualified Code(s): E78.5 - Hyperlipidemia , unspecified (7) HTN (hypertension) Current Visit: No Status: Chronic Qualifiers: Hypertension type: essential hypertension Qualified Code(s): I10 - Essential (primary) hypertension (8) DMII (diabetes mellitus, type 2) Current Visit: No Status: Chronic Qualifiers: Diabetes mellitus complication status: with unspecified complications 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 Sitting upright in chair. Objective PUL Vital signs: Last Vital Signs Temp 99.2 F 04/17/17 04:00 Pulse 100 04/17/17 06:00 Resp 18 04/17/17 06:00 BP 134/69 04/17/17 06:00 Pulse Ox 94 04/17/17 06:00 General appearance: no acute distress Eyes: nonicteric ENT: oropharynx moist Neck: supple Effort: normal Auscultation: bilateral: clear Cardiovascular: regular rate and rhythm Gastrointestinal: normoactive bowel sounds, soft, non-tender, non-distended Integumentary: normal Extremities: no cyanosis, no edema Musculoskeletal: other (Marked edema of left hand) normal mental status, non-focal exam mood appropriate, affect normal Results - Laboratory Findings CBC and BMP: 04/17/17 03:20 04/17/17 03:20 ABG ABG pH 7.40 pH Units (7.32-7.45) 04/15/17 15:58 ABG pCO2 31 mmHg (35-45) L 04/15/17 15:58 ABG pO2 56 mmHg (85-104) L 04/15/17 15:58 ABG O2 Saturation 89 % (95-98) L 04/15/17 15:58 PT/INR, D-dimer PT 15.5 Seconds (9.4-12.1) H 04/15/17 03:30 Abnormal lab findings: Abnormal lab results WBC 13.2 K/mcL (4.3-11.1) H D 04/17/17 03:20 RBC 2.52 M/mcL (4.19-5.50) L 04/17/17 03:20 Hgb 6.9 g/dL (12.9-16.9) L 04/17/17 03:20 Hct 21.1 % (37.5-50.1) L 04/17/17 03:20 MCH 27.4 pg (28.0-33.3) L 04/17/17 03:20 RDW 17.8 % (11.5-14.5) H 04/17/17 03:20 Band Neutrophils % 28.0 % (0-4) H 04/15/17 19:26 Neutrophils # 11.6 K/mcL (1.6-8.9) H 04/17/17 03:20 PT 15.5 Seconds (9.4-12.1) H 04/15/17 03:30 ABG pCO2 31 mmHg (35-45) L 04/15/17 15:58 ABG pO2 56 mmHg (85-104) L 04/15/17 15:58 ABG HCO3 19.2 mEQ/L (21-27) L 04/15/17 15:58 ABG O2 Saturation 89 % (95-98) L 04/15/17 15:58 ABG Base Excess -4.9 mEq/L (-2.0 to 3.0) L 04/15/17 15:58 ABG Hematocrit 21 % (35-51) L 04/14/17 15:18 Potassium 3.0 mEq/L (3.5-5.3) L 04/14/17 15:18 Glucose 122 mg/dL (60-95) H 04/14/17 15:18 Sodium 131 mEq/L (136-145) L 04/17/17 03:20 BUN 54 mg/dL (8-26) H 04/17/17 03:20 Creatinine 2.22 mg/dL (0.72-1.25) H 04/17/17 03:20 Est GFR ( Amer) 36 (> 60) L 04/17/17 03:20 Est GFR (Non-Af Amer) 29 (> 60) L 04/17/17 03:20 Glucose 229 mg/dL (70-99) H 04/17/17 03:20 POC Glucose 212 (58-89) H 04/16/17 20:17 Hemoglobin A1c 6.8 % (-5.6) H 04/11/17 15:41 Ionized Calcium 1.08 mmol/L (1.15-1.35) L 04/17/17 03:20 AST 83 Units/L (5-34) H 04/17/17 03:20 Troponin I 0.49 ng/mL (0-0.03) H* 04/15/17 19:26 B-Natriuretic Peptide 372 pg/mL (0-100) H 04/15/17 19:26 Serum Total Protein 5.9 g/dL (6.0-8.3) L 04/17/17 03:20 Albumin 2.8 g/dL (3.5-5.0) L 04/17/17 03:20 Albumin/Globulin Ratio 0.9 (1.1-2.2) L 04/17/17 03:20 Triglycerides 328 mg/dL (< 150) H 04/11/17 15:41 Cholesterol 232 mg/dL (< 200) H 04/11/17 15:41 LDL Cholesterol, Calc 120 mg/dL (0-99) H 04/11/17 15:41 VLDL Cholesterol, Calc 66 mg/dL (< 31) H 04/11/17 15:41 Cholesterol/HDL Ratio 5.0 (0-4.9) H 04/11/17 15:41 - Microbiology Findings Microbiology Findings: Microbiology, Last 48 Hours 04/16/17 08:07 Urine Culture - Final Urine,Crump Port No growth. - Clinical Findings Intake & Output: Intake & Output 04/16/17 04/16/17 04/17/17 15:59 23:59 07:59 Intake Total 1550 / 1550 540 / 540 600 / 600 Output Total 250 / 250 250 / 250 575 / 575 Balance 1300 / 1300 290 / 290 25 / 25 - VTE Documentation of Mechanical Device: Graduated compression elastic hosiery Consult Discharge Plan - Plan Referrals: Lomax,Carlo West MD [Primary Care Provider] - <Hosea Corbett - Last Filed: 04/17/17 14:03> Date of Encounter: 04/17/17 Objective PUL Vital signs: Last Vital Signs Temp 97.4 F L 04/17/17 11:23 Pulse 87 04/17/17 13:00 Resp 20 04/17/17 13:00 BP 106/67 04/17/17 13:00 Pulse Ox 96 04/17/17 13:00 Results - Laboratory Findings CBC and BMP: 04/17/17 03:20 04/17/17 03:20 ABG ABG pH 7.40 pH Units (7.32-7.45) 04/15/17 15:58 ABG pCO2 31 mmHg (35-45) L 04/15/17 15:58 ABG pO2 56 mmHg (85-104) L 04/15/17 15:58 ABG O2 Saturation 89 % (95-98) L 04/15/17 15:58 PT/INR, D-dimer PT 15.5 Seconds (9.4-12.1) H 04/15/17 03:30 Abnormal lab findings: Abnormal lab results WBC 13.2 K/mcL (4.3-11.1) H D 04/17/17 03:20 RBC 2.52 M/mcL (4.19-5.50) L 04/17/17 03:20 Hgb 6.9 g/dL (12.9-16.9) L 04/17/17 03:20 Hct 21.1 % (37.5-50.1) L 04/17/17 03:20 MCH 27.4 pg (28.0-33.3) L 04/17/17 03:20 RDW 17.8 % (11.5-14.5) H 04/17/17 03:20 Band Neutrophils % 28.0 % (0-4) H 04/15/17 19:26 Neutrophils # 11.6 K/mcL (1.6-8.9) H 04/17/17 03:20 PT 15.5 Seconds (9.4-12.1) H 04/15/17 03:30 ABG pCO2 31 mmHg (35-45) L 04/15/17 15:58 ABG pO2 56 mmHg (85-104) L 04/15/17 15:58 ABG HCO3 19.2 mEQ/L (21-27) L 04/15/17 15:58 ABG O2 Saturation 89 % (95-98) L 04/15/17 15:58 ABG Base Excess -4.9 mEq/L (-2.0 to 3.0) L 04/15/17 15:58 ABG Hematocrit 21 % (35-51) L 04/14/17 15:18 Potassium 3.0 mEq/L (3.5-5.3) L 04/14/17 15:18 Glucose 122 mg/dL (60-95) H 04/14/17 15:18 Sodium 131 mEq/L (136-145) L 04/17/17 03:20 BUN 54 mg/dL (8-26) H 04/17/17 03:20 Creatinine 2.22 mg/dL (0.72-1.25) H 04/17/17 03:20 Est GFR ( Amer) 36 (> 60) L 04/17/17 03:20 Est GFR (Non-Af Amer) 29 (> 60) L 04/17/17 03:20 Glucose 229 mg/dL (70-99) H 04/17/17 03:20 POC Glucose 240 (58-89) H 04/17/17 11:07 Hemoglobin A1c 6.8 % (-5.6) H 04/11/17 15:41 Ionized Calcium 1.08 mmol/L (1.15-1.35) L 04/17/17 03:20 AST 83 Units/L (5-34) H 04/17/17 03:20 Troponin I 0.49 ng/mL (0-0.03) H* 04/15/17 19:26 B-Natriuretic Peptide 372 pg/mL (0-100) H 04/15/17 19:26 Serum Total Protein 5.9 g/dL (6.0-8.3) L 04/17/17 03:20 Albumin 2.8 g/dL (3.5-5.0) L 04/17/17 03:20 Albumin/Globulin Ratio 0.9 (1.1-2.2) L 04/17/17 03:20 Triglycerides 328 mg/dL (< 150) H 04/11/17 15:41 Cholesterol 232 mg/dL (< 200) H 04/11/17 15:41 LDL Cholesterol, Calc 120 mg/dL (0-99) H 04/11/17 15:41 VLDL Cholesterol, Calc 66 mg/dL (< 31) H 04/11/17 15:41 Cholesterol/HDL Ratio 5.0 (0-4.9) H 04/11/17 15:41 - Microbiology Findings Microbiology Findings: Microbiology, Last 48 Hours 04/15/17 19:26 Blood Culture - Preliminary Peripheral Venipuncture No growth. 04/15/17 19:26 Blood Culture - Preliminary Peripheral Venipuncture No growth. 04/16/17 08:07 Urine Culture - Final Urine,[place] Port No growth. - Clinical Findings Intake & Output: Intake & Output 04/16/17 04/17/17 04/17/17 23:59 07:59 15:59 Intake Total 540 / 540 710 / 710 980 / 980 Output Total 250 / 250 575 / 575 225 / 225 Balance 290 / 290 135 / 135 755 / 755 - Attending Attestation I examined this patient and my medical decision-making was reviewed with the POPPED [employer]N OVEN ATTENDANT/PA/Advanced Practice Nurse/Resident Physician. I agree with the documented findings, disposition and treatment plan as described except to the extent set forth below. Patient seen and examined at bedside Labs, radiology, chart personally reviewed. All lines examined without evidence of infection. Neuropsych: Fully awake and alert anxious secondary to respiratory distress Pulm: Acute hypoxic respiratory failure suspect secondary to bronchospasm stable steroid stopped continue when necessary ipratropium/ Xopenex. FiO2 then weaned to nasal cannula and will continue to decrease amount to keep saturation around 92-94% Cards:POD#3 status post CABG 3 stable chest tubes removed surgical management per CTS continue aspirin and statin beta jacques holding ACEi/ARB s/t KAIDEN FEN-GI: Cont Cardiac Diet as tolerated. Renal: Mild worsening of [place] Good uop trial diuresis today nephrology has been consulted replace lytes per protocol ID: Cultures negative thus far clinically quite stable discontinue antimicrobials given potential for nephrotoxicity and monitor Heme/Onc: DVT prophylaxis given. Hemoglobin less than 7 a day transfuse 1 unit Endo: Glucose monitor Integ/MSK: Skin care per ICU to prevent ulcers CODE: Full code
[2017-04-17] MEDS ORDERED: *HR* LORazepam 1 MG TABLET PO PRN (07:35)
[2017-04-17] MEDS ORDERED: Ondansetron 4 MG/2 ML VIAL IVP PRN (07:35)
[2017-04-17] MEDS ORDERED: *HR* Morphine 2 MG/ML SYRINGE IVP PRN ×2 (07:35)
[2017-04-17] MEDS ORDERED: *HR* Dextrose 50 % in Water (Syg) 50 ML SYRINGE IVP PRN (07:35)
[2017-04-17] MEDS ORDERED: D5% in Water 1,000 ML IVC PRN (07:35)
[2017-04-17] MEDS ORDERED: Naloxone 0.4 MG/ML INJ IVP PRN (07:35)
[2017-04-17] MEDS ORDERED: COLESTIPOL HCL PO PRN (07:35)
[2017-04-17] MEDS ORDERED: Dextrose Gel 15 GM PO PRN ×2 (07:35)
[2017-04-17] MEDS ORDERED: Acetaminophen 325 MG TABLET PO PRN (07:35)
[2017-04-17] MEDS ORDERED: Nitroglycerin 0.4 MG TAB.SUBL SL PRN (07:35)
[2017-04-17] MEDS ORDERED: 0.9 % Sodium Chloride 250 ML ONE (08:49)
[2017-04-17] MEDS: Pantoprazole 40 MG VIAL IVP SCH (08:52)
[2017-04-17] MEDS: *HR* Amiodarone 200 MG TABLET PO SCH (08:53)
[2017-04-17] MEDS: Aspirin Enteric Coated 81 MG Tablet PO SCH (08:53)
[2017-04-17] MEDS: Furosemide 20 MG/2 ML VIAL IVP SCH ×2 (08:53→21:11)
[2017-04-17] MEDS: Gabapentin 300 MG CAPSULE PO SCH ×4 (08:54→21:09)
[2017-04-17] MEDS ORDERED: *HR* Metformin 500 MG TABLET PO SCH (09:00)
[2017-04-17] MEDS: *HR* OxyCODONE/APAP 5/325 TABLET PO PRN ×3 (09:12→21:09)
--- NOTE | 2017-04-17 10:28 | Nephrology Consult Note ---
Date of Encounter: 04/17/17 Time of Encounter: 10:00 Assessment and Plan (1) KAIDEN (acute kidney injury) Current Visit: Yes Status: Acute multifactorial: hemodynamics (AF RVR and recent CABG), CTA contrast exposure, anemia (renal hypoperfusion). Agree with transfusion Suspect hypervolumeic hyponatremia: trend PNa and check BNP. Will check U osm, U Na and U K plus TSH and AM Cortisol. Would avoid nephrotoxins such as Vanco if possible. Hx of DM and mild CKD stage II or III at baseline. Would hold the Metformin and d/t the KAIDEN, I've reduced the dose of the Gabapentin until renal function improves. Follow a renal protective strategy: dose Rx by GFR, avoid NSAIDs, and nephrotoxic Rx as able. Thank you for consulting the [facility]. (2) Hyponatremia Current Visit: Yes Status: Acute See above (3) Anemia Current Visit: Yes Status: Acute Post op. Agree with PRBCs. Qualifiers: Anemia type: other cause Other causes of anemia: other cause, not classified Qualified Code(s): D64.89 - Other specified anemias (4) Atrial fibrillation with RVR Current Visit: Yes Status: Acute As per primary. (5) Status post coronary artery bypass graft Current Visit: Yes Status: Acute s/p CABG (6) HTN (hypertension) Current Visit: No Status: Chronic hemodynamically stable. Qualifiers: Hypertension type: essential hypertension Qualified Code(s): I10 - Essential (primary) hypertension History of Present Illness - Reason for Consult Consult date: 04/17/17 Acute Kidney Injury Requesting physician: China Templeton - Chief Complaint KAIDEN - History of Present Illness Jovi Moncada is a very pleasant 72 y/o gentleman with a pmh of CAD, HTN and CKD stage III who underwent CABG. He affirmed feeling tired today but did not report significan N/V/D or dehydration symptoms. He said that he has a family history: + CKD in father who required HD in his 80s. After the 3v CABG he developed new onset dyspnea and since he had a high clinical probability, he underwent CTA to r/o PE. Yesterday he also developed AF RVR, which has since improved. His SCr has been rising each post op day, which lead to nephrology consultation. He said that he's never had a prior director of consulting services. Past Med Surg Social Fam HX - Past Medical History Medical history: arthritis, asthma, coronary artery disease, diabetes, hyperlipidemia, hypertension Psychiatric history: no psych history - Past Surgical History Surgical History: cholecystectomy, knee replacement, orthopedic, other, other ( Cervical fusion 3, lumbar fusion) - Social History Smoking Status: Never smoker Smokeless Tobacco Status: No Alcohol use: none Drug use: none - Family History Mother Hx Family Cancer: Yes Father Hx Family Cardiac Disorders: Yes Hx Family Endocrine Disorder: Yes Medications and Allergies Allopurinol [Zyloprim 300 MG] 300 mg PO DAILY 01/18/16 [History] Colestipol HCl [Colestid] 1.5 gm PO DAILY PRN 01/18/16 [History] Gabapentin [Neurontin] 600 mg PO TID 01/18/16 [History] Lisinopril/Hydrochlorothiazide [Zestoretic 20-12.5 mg Tablet] 1 tab PO DAILY 08/25 [History] Meloxicam [Mobic] 15 mg PO DAILY 01/18/16 [History] Metformin HCl [Glucophage] 1,000 mg PO BID 01/18/16 [History] Montelukast [Singulair] 10 mg PO HS 01/18/16 [History] Omeprazole [PriLOSEC] 40 mg PO BID 01/18/16 [History] Tramadol HCl/Acetaminophen [Ultracet Tablet] 2 tab PO Q6H PRN 01/18/16 [History] Aspirin 81 mg PO HS 12/06/16 [History] Glimepiride [Amaryl] 4 mg PO QAM 12/06/16 [History] Albuterol Sulfate [Proair Hfa] 2 puff IH Q4H PRN 04/11/17 [History] Diclofenac Sodium [Voltaren] 100 gm TP QID 04/11/17 [History] Dicyclomine [Bentyl] 10 - 20 mg PO QID 04/11/17 [History] Glimepiride [Amaryl] 2 mg PO QPM 04/11/17 [History] Levomefolate/B6/B12/Algal Oil [Metanx Capsule] 2 cap PO DAILY 04/11/17 [History] Metoprolol Succinate 25 mg PO DAILY 04/11/17 [History] Nitroglycerin [Nitrostat] 0.4 mg SL AD PRN 04/11/17 [History] Allergies No Known Allergies Allergy (Verified 12/06/16 14:26) Review of Systems All Systems: reviewed and no additional remarkable complaints except as stated Exam - Vital Signs Vital signs: Initial Vital Signs Temp Pulse Resp BP Pulse Ox 97.4 F L 70 18 134/85 97 04/11/17 09:16 04/11/17 09:16 04/11/17 09:16 04/11/17 09:16 04/11/17 09:16 Vital Signs - Last 8 Hours Temp Pulse Resp BP Pulse Ox 04/17/17 09:32 109 22 133/77 96 04/17/17 07:45 99.0 F 04/17/17 07:43 103 04/17/17 07:00 103 18 138/71 95 04/17/17 06:00 100 18 134/69 94 04/17/17 05:00 67 10 108/61 96 04/17/17 04:16 21 99/59 97 04/17/17 04:00 99.2 F 74 14 106/61 97 04/17/17 03:00 80 12 103/62 96 Intake and Output 04/16/17 04/17/17 04/17/17 23:59 07:59 15:59 Intake Total 540 / 540 600 / 600 540 / 540 Output Total 250 / 250 575 / 575 225 / 225 Balance 290 / 290 25 / 25 315 / 315 Intake: IV Fluids 550 / 550 Amiodarone Drip Premix 200 / 200 360mg/200mL 360 mg In 200 ml @ 0.5 MG/MIN 16.667 mls/hr IVC CONT ANDREW Rx#: [id number] Nitroglycerin 25 mg In 250 / 250 250 ml @ 0.5 MCG/KG/MIN 31.77 mls/hr IVC .[id number] ANDREW Rx#:[id number] Zosyn 3.375 GM In 100 / 100 Dextrose 5% (Minibag+) 100 ML 100 ML @ 25 mls/hr IVPB Q8H ANDREW Rx#: [id number] Oral 540 / 540 50 / 50 240 / 240 Blood Product 300 / 300 Rbcs Leuko Poor As-1 300 / 300 Unit [id number] Output: Urine 100 / 100 Urine/Stool Mix 200 / 200 Catheter 250 / 250 375 / 375 125 / 125 Other: Meal Lunch Breakfast Percent of Meal Consumed 80% 70% Stool Size Small Stool Consistency liquid soft Stool Characteristics Normal for Patient Stool Color Green Brown # Bowel Movements 1 Blood Glucose* 212 248 - General Appearance General appearance: well-developed, well-nourished, appears started age, obese EENT: ATNC, PERRL, mucous membranes moist Neck: supple Respiratory: course breath sounds Cardiology: no rub, edema (trace pedal edema with b/l stockings in place), rapid rhythm, irregular rhythm, normal S1, normal S2 Gastrointestinal: normoactive bowel sounds, no tenderness, no guarding, obese Integumentary: no rash, warm and dry Neurologic: no focal deficit, no asterixis, alert and oriented x3 Musculoskeletal: no deformities, no erythema, no cyanosis, no clubbing Psychiatric: mood/affect appropriate, cooperative Results - Lab Results 04/17/17 03:20 04/17/17 15:08 Most recent lab results ABG pH 7.40 pH Units (7.32-7.45) 04/15/17 15:58 ABG pCO2 31 mmHg (35-45) L 04/15/17 15:58 ABG pO2 56 mmHg (85-104) L 04/15/17 15:58 ABG HCO3 19.2 mEQ/L (21-27) L 04/15/17 15:58 ABG O2 Saturation 89 % (95-98) L 04/15/17 15:58 Calcium 8.6 mg/dL (8.6-10.8) 04/17/17 03:20 Phosphorus 3.3 mg/dL (2.3-4.7) 04/16/17 16:25 Magnesium 2.2 mg/dL (1.6-2.6) 04/17/17 03:20 I reviewed the above labs, meds, vitals, imaging, progress notes, and the above auto generated data rosa. Consult Discharge Plan - Plan Referrals: Carlo Lomax MD [Primary Care Provider] -
[2017-04-17] MEDS ORDERED: Furosemide 20 MG/2 ML VIAL IVP ONE (10:32)
[2017-04-17] MEDS: Insulin LISPRO 300 UNITS/3 ML VIAL SQ SCH ×3 (11:32→21:13)
[2017-04-17 15:28] LABS: Calcium 8.3 mg/dL (8.6-10.8); Potassium 3.8 mEq/L (3.5-4.5)
[2017-04-17] MEDS: Ipratropium 1 PUFF INHALER IH PRN ×2 (18:45→23:11)
[2017-04-17 20:39] LABS: Potassium,Urine 16.7 mEq/L
[2017-04-18] MEDS: *HR* OxyCODONE/APAP 5/325 TABLET PO PRN (05:37)
[2017-04-18] MEDS: *HR* Heparin 5,000 UNIT/ML VIAL SQ SCH ×2 (05:37→17:36)
[2017-04-18] MEDS: Ipratropium 1 PUFF INHALER IH PRN ×3 (05:49→20:34)
[2017-04-18 06:23] LABS: Calcium 8.9 mg/dL (8.6-10.8); Potassium 3.6 mEq/L (3.5-4.5)
[2017-04-18 06:46] LABS: Thyroid Stimulating Hormone 2.254 mcIU/mL (0.350-4.840)
[2017-04-18 06:59] LABS: Eosinophils # 0.1 K/mcL (0.0-0.6); Eosinophils % 0.8 %; Hematocrit 26.7 % (37.5-50.1); Immature Granulocytes % 0.9 % (0-4); Lymphocytes # 0.8 K/mcL (0.6-4.6); Mean Corpuscular HGB Conc 33.3 g/dL (31.6-35.5); Mean Corpuscular Hemoglobin 28.2 pg (28.0-33.3); Mean Corpuscular Volume 84.5 fL (83.0-100.0); Mean Platelet Volume 10.2 fL (9.4-12.4); Monocytes # 0.8 K/mcL (0.0-1.3); Monocytes % 8.9 %; Nucleated Red Blood Cells 0.2 /100 WBC (0); Platelet Count 249 K/mcL (140-400); Red Blood Count 3.16 M/mcL (4.19-5.50); Red Cell Distribution Width 17.2 % (11.5-14.5); Segmented Neutrophils % 80.4 %
[2017-04-18 07:03] LABS: Hemoglobin 8.9 g/dL (12.9-16.9)
[2017-04-18] MEDS: Pantoprazole 40 MG VIAL IVP SCH (07:57)
[2017-04-18] MEDS: Furosemide 20 MG/2 ML VIAL IVP SCH ×2 (07:57→21:40)
[2017-04-18] MEDS: Aspirin Enteric Coated 81 MG Tablet PO SCH (07:58)
[2017-04-18] MEDS: Insulin LISPRO 300 UNITS/3 ML VIAL SQ SCH ×4 (07:59→21:40)
[2017-04-18] MEDS: *HR* Amiodarone 200 MG TABLET PO SCH (07:59)
--- NOTE | 2017-04-18 09:49 | Cardiothoracic Progress Note ---
Date of Encounter: 04/18/17 Time of Encounter: 09:47 - Assessment and plan (1) CAD (coronary artery disease) Current Visit: Yes Status: Chronic The patient is recovering well from his CABG 3. He is sitting in chair and is breathing comfortably. He is complaining of constipation and will be given a Fleets enema this morning. His creatinine appears to have plateaued and he is being followed by nephrology. The assessment and plan as outlined above was discussed with the patient and/or family members who expressed understanding and agreement. All questions were answered. Qualifiers: Coronary Disease-Associated Artery/Lesion type: [place] artery [place] vs. transplanted heart: [place] heart Associated angina: with stable angina Qualified Code(s): I25.118 - Atherosclerotic heart disease of [place] coronary artery with other forms of angina pectoris - Subjective Procedure(s) Performed: POD#4 S/P CABG3 Interval history: The patient remained hemodynamically stable overnight. He is sitting in a chair breathing comfortably. He is complaining of constipation. Vital Signs, Last 4 Hours Temp Pulse Resp BP Pulse Ox 04/18/17 07:55 85 04/18/17 07:31 97.8 F 89 18 136/77 95 04/18/17 05:49 16 96 Oxgyen Flow Rate Oxygen Flow Rate (LPM) 2 Clinical Data, last 8 Hours Output, Urine Amount 350 Weight 04/16/17 04/17/17 04/18/17 23:59 23:59 23:59 Weight 108.726 kg 109.9 kg - Physical Examination General: Conversant, No Apparent Distress Neck: No JVD, Normal carotid pulses Cardiac: Reg Rate and Rhythm, Normal S1 and S2, No Murmur Incision: No signs of infection, Dry/intact dressing Sternum: Stable Pacing Wires: In place Lungs: Normal Breath Sounds, No Wheeze, Rales, Rhonchi Neuro: Alert and responsive, No focal deficits noted Vascular: Normal capillary refill Abdomen: Soft, Non-tender Extremities: No Clubbing, No Cyanosis, No Edema - Labs 04/18/17 06:41 04/18/17 05:50 Lab Results, Last 24 hours 04/17/17 04/17/17 04/18/17 15:08 15:08 05:50 WBC Hgb Hct Plt Count Sodium 132 L 136 Potassium 3.8 3.6 Chloride 104 104 Carbon Dioxide 17 L 19 BUN 61 H 67 H Creatinine 2.30 H 2.15 H Glucose 181 H 149 H Calcium 8.3 L 8.9 B-Natriuretic Peptide 307 H TSH 2.254 04/18/17 06:41 WBC 8.8 Hgb 8.9 L D Hct 26.7 L Plt Count 249 Sodium Potassium Chloride Carbon Dioxide BUN Creatinine Glucose Calcium B-Natriuretic Peptide TSH - VTE Documentation of Mechanical Device: Graduated compression elastic hosiery Consult Discharge Plan - Plan Referrals: Carlo Lomax MD [Primary Care Provider] -
--- NOTE | 2017-04-18 11:29 | Pulmonology Progress Note ---
Date of Encounter: 04/18/17 Time of Encounter: 11:29 Subjective Principal diagnosis: CAD Objective PUL Vital signs: Last Vital Signs Temp 97.8 F 04/18/17 07:31 Pulse 85 04/18/17 07:55 Resp 18 04/18/17 07:31 BP 136/77 04/18/17 07:31 Pulse Ox 95 04/18/17 07:31 Results - Laboratory Findings CBC and BMP: 04/18/17 06:41 04/18/17 05:50 ABG ABG pH 7.40 pH Units (7.32-7.45) 04/15/17 15:58 ABG pCO2 31 mmHg (35-45) L 04/15/17 15:58 ABG pO2 56 mmHg (85-104) L 04/15/17 15:58 ABG O2 Saturation 89 % (95-98) L 04/15/17 15:58 PT/INR, D-dimer PT 15.5 Seconds (9.4-12.1) H 04/15/17 03:30 Abnormal lab findings: Abnormal lab results RBC 3.16 M/mcL (4.19-5.50) L 04/18/17 06:41 Hgb 8.9 g/dL (12.9-16.9) L D 04/18/17 06:41 Hct 26.7 % (37.5-50.1) L 04/18/17 06:41 RDW 17.2 % (11.5-14.5) H 04/18/17 06:41 Band Neutrophils % 28.0 % (0-4) H 04/15/17 19:26 Nucleated RBCs/100 WBC 0.2 /100 WBC (0) H 04/18/17 06:41 PT 15.5 Seconds (9.4-12.1) H 04/15/17 03:30 ABG pCO2 31 mmHg (35-45) L 04/15/17 15:58 ABG pO2 56 mmHg (85-104) L 04/15/17 15:58 ABG HCO3 19.2 mEQ/L (21-27) L 04/15/17 15:58 ABG O2 Saturation 89 % (95-98) L 04/15/17 15:58 ABG Base Excess -4.9 mEq/L (-2.0 to 3.0) L 04/15/17 15:58 ABG Hematocrit 21 % (35-51) L 04/14/17 15:18 Potassium 3.0 mEq/L (3.5-5.3) L 04/14/17 15:18 Glucose 122 mg/dL (60-95) H 04/14/17 15:18 BUN 67 mg/dL (8-26) H 04/18/17 05:50 Creatinine 2.15 mg/dL (0.72-1.25) H 04/18/17 05:50 Est GFR ( Amer) 37 (> 60) L 04/18/17 05:50 Est GFR (Non-Af Amer) 30 (> 60) L 04/18/17 05:50 BUN/Creatinine Ratio 31 (6-26) H 04/18/17 05:50 Glucose 149 mg/dL (70-99) H 04/18/17 05:50 POC Glucose 151 (58-89) H 04/17/17 20:21 Hemoglobin A1c 6.8 % (-5.6) H 04/11/17 15:41 Calculated Osmolality 304 (280-300) H 04/18/17 05:50 Ionized Calcium 1.08 mmol/L (1.15-1.35) L 04/17/17 03:20 AST 83 Units/L (5-34) H 04/17/17 03:20 Creatine Kinase 2963 Units/L (30-200) H 04/18/17 05:50 Troponin I 0.49 ng/mL (0-0.03) H* 04/15/17 19:26 B-Natriuretic Peptide 307 pg/mL (0-100) H 04/17/17 15:08 Serum Total Protein 5.9 g/dL (6.0-8.3) L 04/17/17 03:20 Albumin 2.8 g/dL (3.5-5.0) L 04/17/17 03:20 Albumin/Globulin Ratio 0.9 (1.1-2.2) L 04/17/17 03:20 Triglycerides 328 mg/dL (< 150) H 04/11/17 15:41 Cholesterol 232 mg/dL (< 200) H 04/11/17 15:41 LDL Cholesterol, Calc 120 mg/dL (0-99) H 04/11/17 15:41 VLDL Cholesterol, Calc 66 mg/dL (< 31) H 04/11/17 15:41 Cholesterol/HDL Ratio 5.0 (0-4.9) H 04/11/17 15:41 - Microbiology Findings Microbiology Findings: Microbiology, Last 48 Hours 04/15/17 19:26 Blood Culture - Preliminary Peripheral Venipuncture No growth. 04/15/17 19:26 Blood Culture - Preliminary Peripheral Venipuncture No growth. 04/16/17 08:07 Urine Culture - Final Urine,[place] No growth. - Clinical Findings Intake & Output: Intake & Output 04/17/17 04/18/17 04/18/17 23:59 07:59 15:59 Intake Total 120 / 120 240 / 240 Output Total 20 / 20 350 / 350 Balance 100 / 100 -110 / -110 Weight 109.9 kg - VTE Documentation of Mechanical Device: Graduated compression elastic hosiery Consult Discharge Plan - Plan Referrals: Carlo Lomax MD [Primary Care Provider] -
--- NOTE | 2017-04-18 11:45 | Nephrology Progress Note ---
<Krystle Hogan - Last Filed: 04/18/17 12:45> Date of Encounter: 04/18/17 Time of Encounter: 12:00 - Assessment and Plan (1) KAIDEN (acute kidney injury) Current Visit: Yes Status: Acute Patient with nonoliguric acute kidney injury on CKD stage III. KAIDEN likely multifactorial in etiology including altered hemodynamics with AF RVR and recent CAGB, CTA contrast exposure and anemia causing renal hypoperfusion. Creatinine plateaued and is now improving 1.27 > 1.95 > 2.21 > 2.30 > 2.15. Urine osmol 307, urine Na 24. TSH and cortisol within normal limits. Continue to monitor kidney function. Believe it is likely to continue improving. Recommend continuing to hold metformin and continuing the lower dose Gabapentin. Continue renal protective strategy - dose medications by GFR, avoid nephrotoxic medications. (2) Hyponatremia Current Visit: Yes Status: Acute Patient with hyponatremia - sodium of 132, improved to 136 today. Likely secondary to volume status and dilution. Continue to monitor sodium daily. Monitor volume status and urine output. (3) Anemia Current Visit: Yes Status: Acute Anemia with Hbg of 6.9 yesterday. S/p transfusion of 1 unit pRBC. Responded appropriately with Hbg of 8.9 today. Continue to monitor hemoglobin or for signs of unstability. Qualifiers: Anemia type: other cause Other causes of anemia: other cause, not classified Qualified Code(s): D64.89 - Other specified anemias (4) Atrial fibrillation with RVR Current Visit: Yes Status: Acute (5) Status post coronary artery bypass graft Current Visit: Yes Status: Acute Subjective Principal diagnosis: CAD Interval history: Mr Jovi Moncada is a 72yo male with history of CAD, HTN and CKD stage II who underwenta 3 vessel CABG this admission. Nephrology consulted because patient' s creatinine has been rising steadily since his surgery. Yesterday patient received 1 unit pRBC for a Hgb 6.9 - responded appropriately with Hgb 8.9 today. Patient afebrile with vital signs within normal limits. Creatinine improved today 2.15 from 2.30 yesterday. Patient seen and examined today. He reports that he is feeling much improved from yesterday. His only complaint is that his chest is sore. He reports no urinary symptoms or significant LE edema. On exam, he is awake and alert, in no acute distress. Lungs diminished but no crackles heard. Minimal LE edema noted. Objective - Vital Signs Vital signs: Vital Signs Temp Pulse Resp BP Pulse Ox 04/18/17 07:55 85 04/18/17 07:31 97.8 F 89 18 136/77 95 04/18/17 05:49 16 96 04/18/17 05:15 76 04/18/17 04:40 97.7 F 78 18 121/72 96 04/17/17 23:34 97.5 F L 75 20 107/59 97 04/17/17 23:11 16 97 04/17/17 20:10 97.5 F L 98 20 94 04/17/17 17:12 97.6 F 90 16 112/86 95 04/17/17 15:31 87 04/17/17 15:00 97.3 F L 72 18 116/68 96 04/17/17 13:00 87 20 106/67 96 Intake and Output 04/17/17 04/18/17 04/18/17 23:59 07:59 15:59 Intake Total 120 / 120 240 / 240 Output Total 20 / 20 350 / 350 Balance 100 / 100 -110 / -110 Intake: Oral 120 / 120 240 / 240 Output: Urine 20 / 20 350 / 350 Other: Meal Breakfast Percent of Meal Consumed 100% # Voids 1 1 # Bowel Movements 1 Weight 109.9 kg Blood Glucose* 145 Patient Weight 04/18/17 23:59 Weight 109.9 kg - General Appearance General appearance: Present: well-developed, well-nourished, appears started age EENT: Present: PERRL, mucous membranes moist Neck: Present: no JVD Additional Comments: Diminished breath sounds, no crackles or wheezes Cardiology: Present: no murmurs, no rub, no gallops, regular rate, regular rhythm Gastrointestinal: Present: hypoactive bowel sounds, no tenderness, no guarding Integumentary: Present: no rash, warm and dry Neurologic: Present: no focal deficit, alert and oriented x3 Additional Comments: Minimal LE edema noted, right worse than left. Psychiatric: Present: mood/affect appropriate, cooperative - Lab 04/18/17 06:41 04/18/17 05:50 Most recent lab results ABG pH 7.40 pH Units (7.32-7.45) 04/15/17 15:58 ABG pCO2 31 mmHg (35-45) L 04/15/17 15:58 ABG pO2 56 mmHg (85-104) L 04/15/17 15:58 ABG HCO3 19.2 mEQ/L (21-27) L 04/15/17 15:58 ABG O2 Saturation 89 % (95-98) L 04/15/17 15:58 Calcium 8.9 mg/dL (8.6-10.8) 04/18/17 05:50 Phosphorus 3.3 mg/dL (2.3-4.7) 04/16/17 16:25 Magnesium 2.2 mg/dL (1.6-2.6) 04/17/17 03:20 Urine Sodium 24.0 mEq/L 04/17/17 20:20 - VTE Documentation of Mechanical Device: Graduated compression elastic hosiery Consult Discharge Plan - Plan Referrals: Dami,Carlo West MD [Primary Care Provider] - <Kandy Shipman - Last Filed: 04/19/17 14:00> Date of Encounter: 04/18/17 Objective - Vital Signs Vital signs: Vital Signs Temp Pulse Resp BP Pulse Ox 04/19/17 12:20 98.2 F 80 16 122/73 96 04/19/17 11:21 98.2 F 80 16 122/73 96 04/19/17 08:10 16 95 04/19/17 07:45 98.4 F 91 16 140/77 96 04/19/17 06:02 16 98 04/19/17 05:05 88 04/19/17 04:29 98.4 F 88 20 97 04/18/17 23:54 99.6 F 94 18 103/68 95 04/18/17 21:04 98.3 F 104 18 147/76 95 04/18/17 20:33 16 95 04/18/17 19:20 98 04/18/17 16:16 18 94 04/18/17 15:59 98.1 F 89 18 131/74 94 04/18/17 15:44 86 Intake and Output 04/18/17 04/19/17 04/19/17 23:59 07:59 15:59 Intake Total 360 / 360 60 / 60 240 / 240 Output Total 0 / 0 Balance 360 / 360 60 / 60 240 / 240 Intake: Oral 360 / 360 60 / 60 240 / 240 Output: Urine 0 / 0 Other: Meal Dinner Breakfast Percent of Meal Consumed 50% 100% Stool Size Small Small Stool Consistency loose liquid liquid Stool Color Brown # Voids 1 1 # Urine Diapers 1 # Bowel Movements 1 Weight 107.8 kg Blood Glucose* 224 181 226 Patient Weight 04/19/17 23:59 Weight 107.8 kg - Lab 04/19/17 04:29 04/19/17 04:29 Most recent lab results ABG pH 7.40 pH Units (7.32-7.45) 04/15/17 15:58 ABG pCO2 31 mmHg (35-45) L 04/15/17 15:58 ABG pO2 56 mmHg (85-104) L 04/15/17 15:58 ABG HCO3 19.2 mEQ/L (21-27) L 04/15/17 15:58 ABG O2 Saturation 89 % (95-98) L 04/15/17 15:58 Calcium 8.8 mg/dL (8.6-10.8) 04/19/17 04:29 Phosphorus 3.3 mg/dL (2.3-4.7) 04/16/17 16:25 Magnesium 2.2 mg/dL (1.6-2.6) 04/17/17 03:20 Urine Sodium 24.0 mEq/L 04/17/17 20:20 - Attending Attestation I examined this patient and my medical decision-making was reviewed with the STEVEDORE DOCK/PA/Advanced Practice Nurse/Resident Physician. I agree with the documented findings, disposition and treatment plan as described except to the extent set forth below. Pt seen and examined resting comfortably with no new issues. Interim events noted. SCr improving at 2.15, GFR 30, UOP adequate at 1150cc in the past 24hrs. Sodium also normalized at 136. Continue supportive care
--- NOTE | 2017-04-18 14:19 | Pulmonology Progress Note ---
Date of Encounter: 04/18/17 Time of Encounter: 14:17 Assessment and Plan (1) Acute respiratory failure with hypoxia Current Visit: Yes Status: Acute This is multifactorial including bronchospasm postoperative atelectasis pulmonary edema. Currently saturating well on nasal cannula oxygen supplementation wean to keep saturations around 94% encourage incentive spirometry out of bed to chair and ambulation as tolerated (2) Asthma Current Visit: Yes Status: Acute Continue Xopenex and ipratropium on an as-needed basis Given persistence and wheezing and postoperative status and elected to start an inhaled corticosteroid and patient which can be used twice daily at present I recommend discharging patient with this and he can follow-up in the pulmonary clinic for further evaluation of asthma Qualifiers: Asthma complication type: with acute exacerbation Qualified Code(s): J45.31 - Mild persistent asthma with (acute) exacerbation (3) CAD (coronary artery disease) Current Visit: Yes Status: Chronic Continue aspirin and statin beta jacques holding LUCI inhibitor for acute kidney injury Qualifiers: Coronary Disease-Associated Artery/Lesion type: [place] artery [place] vs. transplanted heart: [place] heart Associated angina: with stable angina Qualified Code(s): I25.118 - Atherosclerotic heart disease of [place] coronary artery with other forms of angina pectoris (4) Status post coronary artery bypass graft Current Visit: Yes Status: Acute This is being managed by the cardiothoracic surgery team (5) Atrial fibrillation with RVR Current Visit: Yes Status: Acute Currently sinus after IV amiodarone continue to monitor as likely related to CABG (6) KAIDEN (acute kidney injury) Current Visit: Yes Status: Acute Resolving this is multifactorial including hypotension and possible nephrotoxins. Nephrology following. That volume status would recommend half a liter to 1 L negative over the course of day continue Lasix for this purpose will need daily monitoring of renal function/electrolytes Subjective Principal diagnosis: CAD Interval history: Patient was moved out of the ICU yesterday and has generally done well. Did have 1 episode last night when he was up moving about he became dyspneic along with an episode of wheezing this improved later with rest and a bronchodilator. His kidney function is slowly improving and outside of feeling constipated he feels better today than he has thus far Objective PUL Vital signs: Last Vital Signs Temp 98.0 F 04/18/17 11:48 Pulse 82 04/18/17 11:55 Resp 18 04/18/17 11:48 BP 110/69 04/18/17 11:48 Pulse Ox 95 04/18/17 11:48 General appearance: no acute distress ENT: oropharynx moist Effort: normal Auscultation: bilateral: wheezes (Faint expiratory wheeze bilaterally) Cardiovascular: regular rate and rhythm Gastrointestinal: normoactive bowel sounds, hypoactive bowel sounds, non-tender , other (Distended but nontender) Extremities: edema mood appropriate Results - Laboratory Findings CBC and BMP: 04/18/17 06:41 04/18/17 05:50 ABG ABG pH 7.40 pH Units (7.32-7.45) 04/15/17 15:58 ABG pCO2 31 mmHg (35-45) L 04/15/17 15:58 ABG pO2 56 mmHg (85-104) L 04/15/17 15:58 ABG O2 Saturation 89 % (95-98) L 04/15/17 15:58 PT/INR, D-dimer PT 15.5 Seconds (9.4-12.1) H 04/15/17 03:30 Abnormal lab findings: Abnormal lab results RBC 3.16 M/mcL (4.19-5.50) L 04/18/17 06:41 Hgb 8.9 g/dL (12.9-16.9) L D 04/18/17 06:41 Hct 26.7 % (37.5-50.1) L 04/18/17 06:41 RDW 17.2 % (11.5-14.5) H 04/18/17 06:41 Band Neutrophils % 28.0 % (0-4) H 04/15/17 19:26 Nucleated RBCs/100 WBC 0.2 /100 WBC (0) H 04/18/17 06:41 PT 15.5 Seconds (9.4-12.1) H 04/15/17 03:30 ABG pCO2 31 mmHg (35-45) L 04/15/17 15:58 ABG pO2 56 mmHg (85-104) L 04/15/17 15:58 ABG HCO3 19.2 mEQ/L (21-27) L 04/15/17 15:58 ABG O2 Saturation 89 % (95-98) L 04/15/17 15:58 ABG Base Excess -4.9 mEq/L (-2.0 to 3.0) L 04/15/17 15:58 ABG Hematocrit 21 % (35-51) L 04/14/17 15:18 Potassium 3.0 mEq/L (3.5-5.3) L 04/14/17 15:18 Glucose 122 mg/dL (60-95) H 04/14/17 15:18 BUN 67 mg/dL (8-26) H 04/18/17 05:50 Creatinine 2.15 mg/dL (0.72-1.25) H 04/18/17 05:50 Est GFR ( Amer) 37 (> 60) L 04/18/17 05:50 Est GFR (Non-Af Amer) 30 (> 60) L 04/18/17 05:50 BUN/Creatinine Ratio 31 (6-26) H 04/18/17 05:50 Glucose 149 mg/dL (70-99) H 04/18/17 05:50 POC Glucose 151 (58-89) H 04/17/17 20:21 Hemoglobin A1c 6.8 % (-5.6) H 04/11/17 15:41 Calculated Osmolality 304 (280-300) H 04/18/17 05:50 Ionized Calcium 1.08 mmol/L (1.15-1.35) L 04/17/17 03:20 AST 83 Units/L (5-34) H 04/17/17 03:20 Creatine Kinase 2963 Units/L (30-200) H 04/18/17 05:50 Troponin I 0.49 ng/mL (0-0.03) H* 04/15/17 19:26 B-Natriuretic Peptide 307 pg/mL (0-100) H 04/17/17 15:08 Serum Total Protein 5.9 g/dL (6.0-8.3) L 04/17/17 03:20 Albumin 2.8 g/dL (3.5-5.0) L 04/17/17 03:20 Albumin/Globulin Ratio 0.9 (1.1-2.2) L 04/17/17 03:20 Triglycerides 328 mg/dL (< 150) H 04/11/17 15:41 Cholesterol 232 mg/dL (< 200) H 04/11/17 15:41 LDL Cholesterol, Calc 120 mg/dL (0-99) H 04/11/17 15:41 VLDL Cholesterol, Calc 66 mg/dL (< 31) H 04/11/17 15:41 Cholesterol/HDL Ratio 5.0 (0-4.9) H 04/11/17 15:41 - Microbiology Findings Microbiology Findings: Microbiology, Last 48 Hours 04/15/17 19:26 Blood Culture - Preliminary Peripheral Venipuncture No growth. 04/15/17 19:26 Blood Culture - Preliminary Peripheral Venipuncture No growth. 04/16/17 08:07 Urine Culture - Final Urine,[place] No growth. - Clinical Findings Intake & Output: Intake & Output 04/17/17 04/18/17 04/18/17 23:59 07:59 15:59 Intake Total 120 / 120 480 / 480 Output Total 20 / 20 350 / 350 Balance 100 / 100 130 / 130 Weight 109.9 kg - VTE Documentation of Mechanical Device: Graduated compression elastic hosiery Consult Discharge Plan - Plan Referrals: Carlo Lomax MD [Primary Care Provider] -
[2017-04-18] MEDS: Beclomethasone 80mcg MDI IH SCH ×2 (15:10→20:33)
[2017-04-18] MEDS: Gabapentin 300 MG CAPSULE PO SCH (21:39)
[2017-04-19 04:51] LABS: Basophils % 0.1 %; Eosinophils # 0.1 K/mcL (0.0-0.6); Eosinophils % 1.1 %; Hematocrit 28.2 % (37.5-50.1); Hemoglobin 9.1 g/dL (12.9-16.9); Immature Granulocytes % 0.9 % (0-4); Lymphocytes # 0.7 K/mcL (0.6-4.6); Lymphocytes % 9.8 %; Mean Corpuscular HGB Conc 32.3 g/dL (31.6-35.5); Mean Corpuscular Hemoglobin 27.1 pg (28.0-33.3); Mean Corpuscular Volume 83.9 fL (83.0-100.0); Mean Platelet Volume 10.4 fL (9.4-12.4); Monocytes # 0.8 K/mcL (0.0-1.3); Monocytes % 10.9 %; Neutrophils # 5.8 K/mcL (1.6-8.9); Platelet Count 289 K/mcL (140-400); Red Blood Count 3.36 M/mcL (4.19-5.50); Red Cell Distribution Width 17.2 % (11.5-14.5); Segmented Neutrophils % 77.2 %
[2017-04-19 05:13] LABS: BUN/Creatinine Ratio 37 (6-26); Calcium 8.8 mg/dL (8.6-10.8); Carbon Dioxide 21 mEq/L (19-29); Chloride 107 mEq/L (98-109); Glucose 173 mg/dL (70-99); Osmolality,Calculated 305 (280-300); Potassium 3.3 mEq/L (3.5-4.5); Sodium 139 mEq/L (136-145); eGFR For African Americans > 60 (> 60); eGFR For Non-African Americans 53 (> 60)
[2017-04-19 05:18] LABS: Blood Urea Nitrogen 50 mg/dL (8-26)
[2017-04-19] MEDS: *HR* Heparin 5,000 UNIT/ML VIAL SQ SCH ×2 (05:38→16:43)
[2017-04-19] MEDS: Ipratropium 1 PUFF INHALER IH PRN ×4 (06:02→20:12)
[2017-04-19] MEDS: Pantoprazole 40 MG VIAL IVP SCH (07:35)
[2017-04-19] MEDS: Furosemide 20 MG/2 ML VIAL IVP SCH ×2 (07:35→21:21)
[2017-04-19] MEDS: *HR* Amiodarone 200 MG TABLET PO SCH (07:36)
[2017-04-19] MEDS: *HR* OxyCODONE/APAP 5/325 TABLET PO PRN ×4 (07:36→21:29)
[2017-04-19] MEDS: Aspirin Enteric Coated 81 MG Tablet PO SCH (07:38)
[2017-04-19] MEDS: Beclomethasone 80mcg MDI IH SCH ×2 (08:10→20:12)
--- NOTE | 2017-04-19 09:17 | Pulmonology Progress Note ---
Date of Encounter: 04/19/17 Time of Encounter: 10:58 Assessment and Plan (1) Acute respiratory failure with hypoxia Current Visit: Yes Status: Acute This is multifactorial including bronchospasm postoperative atelectasis and pulmonary edema. Weaned off nasal cannula O2. (2) Asthma Current Visit: Yes Status: Acute Continue Xopenex inhaled corticosteroid has been added to his regimen and should be given twice daily he can continue using this until he follows in the outpatient pulmonary clinic for complete evaluation of his underlying bronchial asthma Qualifiers: Asthma severity: unspecified severity Asthma complication type: with acute exacerbation Qualified Code(s): J45.901 - Unspecified asthma with (acute) exacerbation (3) CAD (coronary artery disease) Current Visit: Yes Status: Chronic Continue aspirin and statin beta jacques holding LUCI inhibitor for acute kidney injury Qualifiers: Coronary Disease-Associated Artery/Lesion type: [place] artery [place] vs. transplanted heart: [place] heart Associated angina: with stable angina Qualified Code(s): I25.118 - Atherosclerotic heart disease of [place] coronary artery with other forms of angina pectoris (4) Status post coronary artery bypass graft Current Visit: Yes Status: Acute This is being managed by the cardiothoracic surgery team (5) Atrial fibrillation with RVR Current Visit: Yes Status: Acute Currently sinus after IV amiodarone continue to monitor as likely related to CABG (6) KAIDEN (acute kidney injury) Current Visit: Yes Status: Acute Resolving this is multifactorial including hypotension and possible nephrotoxins. Nephrology following. That volume status would recommend half a liter to 1 L negative over the course of day continue Lasix for this purpose will need daily monitoring of renal function/electrolytes Pulmonary we will sign off thank you for the consultation please call with any questions or should clinical course change Subjective Principal diagnosis: CAD Interval history: Still complaining of mild shortness of breath with ambulation but says in general he feels better with scheduled inhalers. His been weaned off supplemental oxygen while resting in bed Objective PUL Vital signs: Last Vital Signs Temp 98.4 F 04/19/17 07:45 Pulse 91 04/19/17 07:45 Resp 16 04/19/17 08:10 BP 140/77 04/19/17 07:45 Pulse Ox 95 04/19/17 08:10 General appearance: no acute distress Eyes: nonicteric ENT: oropharynx moist Auscultation: bilateral: clear Cardiovascular: regular rate and rhythm Gastrointestinal: normoactive bowel sounds Extremities: no edema normal mental status, non-focal exam mood appropriate Results - Laboratory Findings CBC and BMP: 04/19/17 04:29 04/19/17 04:29 ABG ABG pH 7.40 pH Units (7.32-7.45) 04/15/17 15:58 ABG pCO2 31 mmHg (35-45) L 04/15/17 15:58 ABG pO2 56 mmHg (85-104) L 04/15/17 15:58 ABG O2 Saturation 89 % (95-98) L 04/15/17 15:58 PT/INR, D-dimer PT 15.5 Seconds (9.4-12.1) H 04/15/17 03:30 Abnormal lab findings: Abnormal lab results RBC 3.36 M/mcL (4.19-5.50) L 04/19/17 04:29 Hgb 9.1 g/dL (12.9-16.9) L 04/19/17 04:29 Hct 28.2 % (37.5-50.1) L 04/19/17 04:29 MCH 27.1 pg (28.0-33.3) L 04/19/17 04:29 RDW 17.2 % (11.5-14.5) H 04/19/17 04:29 Band Neutrophils % 28.0 % (0-4) H 04/15/17 19:26 Nucleated RBCs/100 WBC 0.2 /100 WBC (0) H 04/18/17 06:41 PT 15.5 Seconds (9.4-12.1) H 04/15/17 03:30 ABG pCO2 31 mmHg (35-45) L 04/15/17 15:58 ABG pO2 56 mmHg (85-104) L 04/15/17 15:58 ABG HCO3 19.2 mEQ/L (21-27) L 04/15/17 15:58 ABG O2 Saturation 89 % (95-98) L 04/15/17 15:58 ABG Base Excess -4.9 mEq/L (-2.0 to 3.0) L 04/15/17 15:58 ABG Hematocrit 21 % (35-51) L 04/14/17 15:18 Potassium 3.0 mEq/L (3.5-5.3) L 04/14/17 15:18 Glucose 122 mg/dL (60-95) H 04/14/17 15:18 Potassium 3.3 mEq/L (3.5-4.5) L 04/19/17 04:29 BUN 50 mg/dL (8-26) H D 04/19/17 04:29 Creatinine 1.34 mg/dL (0.72-1.25) H 04/19/17 04:29 Est GFR (Non-Af Amer) 53 (> 60) L 04/19/17 04:29 BUN/Creatinine Ratio 37 (6-26) H 04/19/17 04:29 Glucose 173 mg/dL (70-99) H 04/19/17 04:29 POC Glucose 181 (58-89) H 04/19/17 08:05 Hemoglobin A1c 6.8 % (-5.6) H 04/11/17 15:41 Calculated Osmolality 305 (280-300) H 04/19/17 04:29 Ionized Calcium 1.08 mmol/L (1.15-1.35) L 04/17/17 03:20 AST 83 Units/L (5-34) H 04/17/17 03:20 Creatine Kinase 2963 Units/L (30-200) H 04/18/17 05:50 Troponin I 0.49 ng/mL (0-0.03) H* 04/15/17 19:26 B-Natriuretic Peptide 307 pg/mL (0-100) H 04/17/17 15:08 Serum Total Protein 5.9 g/dL (6.0-8.3) L 04/17/17 03:20 Albumin 2.8 g/dL (3.5-5.0) L 04/17/17 03:20 Albumin/Globulin Ratio 0.9 (1.1-2.2) L 04/17/17 03:20 Triglycerides 328 mg/dL (< 150) H 04/11/17 15:41 Cholesterol 232 mg/dL (< 200) H 04/11/17 15:41 LDL Cholesterol, Calc 120 mg/dL (0-99) H 04/11/17 15:41 VLDL Cholesterol, Calc 66 mg/dL (< 31) H 04/11/17 15:41 Cholesterol/HDL Ratio 5.0 (0-4.9) H 04/11/17 15:41 - Microbiology Findings Microbiology Findings: Microbiology, Last 48 Hours 04/15/17 19:26 Blood Culture - Preliminary Peripheral Venipuncture No growth. 04/15/17 19:26 Blood Culture - Preliminary Peripheral Venipuncture No growth. 04/16/17 08:07 Urine Culture - Final Urine,[place] No growth. - Clinical Findings Intake & Output: Intake & Output 04/18/17 04/19/17 04/19/17 23:59 07:59 15:59 Intake Total 360 / 360 60 / 60 Output Total 0 / 0 Balance 360 / 360 60 / 60 Weight 107.8 kg - VTE Documentation of Mechanical Device: Graduated compression elastic hosiery Consult Discharge Plan - Plan Referrals: Carlo Lomax MD [Primary Care Provider] -
[2017-04-19] MEDS: Insulin LISPRO 300 UNITS/3 ML VIAL SQ SCH ×4 (09:38→21:21)
--- NOTE | 2017-04-19 10:45 | Cardiothoracic Progress Note ---
Date of Encounter: 04/19/17 Time of Encounter: 10:43 - Assessment and plan (1) CAD (coronary artery disease) Current Visit: Yes Status: Chronic The assessment and plan as outlined above was discussed with the patient and/or family members who expressed understanding and agreement. All questions were answered. We will check a chest x-ray tomorrow morning. Hopefully, the patient can be discharged soon. Qualifiers: Coronary Disease-Associated Artery/Lesion type: [place] artery [place] vs. transplanted heart: [place] heart Associated angina: with stable angina Qualified Code(s): I25.118 - Atherosclerotic heart disease of [place] coronary artery with other forms of angina pectoris - Subjective Interval history: The patient complains of mild shortness of breath. He does have a history of asthma. Vital Signs, Last 4 Hours Temp Pulse Resp BP Pulse Ox 04/19/17 08:10 16 95 04/19/17 07:45 98.4 F 91 16 140/77 96 Oxgyen Flow Rate Oxygen Flow Rate (LPM) 2 Clinical Data, last 8 Hours Output, Urine Amount 0 Weight 04/17/17 04/18/17 04/19/17 23:59 23:59 23:59 Weight 109.9 kg 107.8 kg Lungs are clear to percussion and auscultation. Heart is in a normal sinus rhythm. All incisions are healing well without signs of infection and the sternum is stable. - Labs 04/19/17 04:29 04/19/17 04:29 Lab Results, Last 24 hours 04/19/17 04/19/17 04:29 04:29 WBC 7.5 Hgb 9.1 L Hct 28.2 L Plt Count 289 Sodium 139 Potassium 3.3 L Chloride 107 Carbon Dioxide 21 BUN 50 H D Creatinine 1.34 H Glucose 173 H Calcium 8.8 - VTE Documentation of Mechanical Device: Graduated compression elastic hosiery Consult Discharge Plan - Plan Referrals: Carlo Lomax MD [Primary Care Provider] -
--- NOTE | 2017-04-19 12:48 | Nephrology Progress Note ---
Date of Encounter: 04/19/17 Time of Encounter: 13:00 - Assessment and Plan (1) KAIDEN (acute kidney injury) Current Visit: Yes Status: Acute SCr drastically at 1.34, GFR 53 UOP adequate at 850cc in the past 24hrs CPK noted elevated at 2963 as of 04/18/17, will repeat Continue supportive care Will sign off, please reconsult prn (2) Status post coronary artery bypass graft Current Visit: Yes Status: Acute Per cardiothoracic surgery (3) Anemia Current Visit: Yes Status: Acute Hgb improving at 9.1, will monitor Qualifiers: Anemia type: other cause Other causes of anemia: other cause, not classified Qualified Code(s): D64.89 - Other specified anemias (4) Hypokalemia Current Visit: Yes Status: Acute Potassium noted at 3.3, will gently replete Subjective Principal diagnosis: CAD Interval history: Pt seen and examined with no new complaints. Objective - Vital Signs Vital signs: Vital Signs Temp Pulse Resp BP Pulse Ox 04/19/17 11:21 98.2 F 80 16 122/73 96 04/19/17 08:10 16 95 04/19/17 07:45 98.4 F 91 16 140/77 96 04/19/17 06:02 16 98 04/19/17 05:05 88 04/19/17 04:29 98.4 F 88 20 97 04/18/17 23:54 99.6 F 94 18 103/68 95 04/18/17 21:04 98.3 F 104 18 147/76 95 04/18/17 20:33 16 95 04/18/17 19:20 98 04/18/17 16:16 18 94 04/18/17 15:59 98.1 F 89 18 131/74 94 04/18/17 15:44 86 Intake and Output 04/18/17 04/19/17 04/19/17 23:59 07:59 15:59 Intake Total 360 / 360 60 / 60 240 / 240 Output Total 0 / 0 Balance 360 / 360 60 / 60 240 / 240 Intake: Oral 360 / 360 60 / 60 240 / 240 Output: Urine 0 / 0 Other: Meal Dinner Breakfast Percent of Meal Consumed 50% 100% Stool Size Small Small Stool Consistency loose liquid liquid Stool Color Brown # Voids 1 1 # Urine Diapers 1 # Bowel Movements 1 Weight 107.8 kg Blood Glucose* 224 181 226 Patient Weight 04/19/17 23:59 Weight 107.8 kg - General Appearance General appearance: Present: well-developed, well-nourished (NAD) EENT: Present: ATNC, mucous membranes moist Neck: Present: no JVD, supple Respiratory: Present: clear Cardiology: Present: no edema, normal S1, normal S2 Gastrointestinal: Present: no tenderness, no guarding Integumentary: Present: warm and dry Neurologic: Present: no focal deficit Musculoskeletal: Present: no deformities Psychiatric: Present: mood/affect appropriate, cooperative - Lab 04/19/17 04:29 04/19/17 04:29 Most recent lab results ABG pH 7.40 pH Units (7.32-7.45) 04/15/17 15:58 ABG pCO2 31 mmHg (35-45) L 04/15/17 15:58 ABG pO2 56 mmHg (85-104) L 04/15/17 15:58 ABG HCO3 19.2 mEQ/L (21-27) L 04/15/17 15:58 ABG O2 Saturation 89 % (95-98) L 04/15/17 15:58 Calcium 8.8 mg/dL (8.6-10.8) 04/19/17 04:29 Phosphorus 3.3 mg/dL (2.3-4.7) 04/16/17 16:25 Magnesium 2.2 mg/dL (1.6-2.6) 04/17/17 03:20 Urine Sodium 24.0 mEq/L 04/17/17 20:20 - VTE Documentation of Mechanical Device: Graduated compression elastic hosiery Consult Discharge Plan - Plan Referrals: Carlo Lomax MD [Primary Care Provider] -
[2017-04-19 15:03] LABS: Creatine Kinase 1392 Units/L (30-200)
[2017-04-19] MEDS: Gabapentin 300 MG CAPSULE PO SCH (21:21)
[2017-04-19] MEDS ORDERED: Sennosides 8.6 MG TABLET PO ONE (22:31)
[2017-04-20] MEDS: *HR* OxyCODONE/APAP 5/325 TABLET PO PRN ×4 (03:29→20:57)
[2017-04-20] MEDS: *HR* Heparin 5,000 UNIT/ML VIAL SQ SCH ×2 (06:21→17:27)
[2017-04-20] MEDS ORDERED: Sennosides 8.6 MG TABLET PO ONE (07:30)
[2017-04-20] MEDS: Aspirin Enteric Coated 81 MG Tablet PO SCH (07:38)
[2017-04-20] MEDS: *HR* Amiodarone 200 MG TABLET PO SCH (07:40)
[2017-04-20] MEDS: Pantoprazole 40 MG VIAL IVP SCH (07:41)
[2017-04-20] MEDS: Furosemide 20 MG/2 ML VIAL IVP SCH ×2 (07:41→20:57)
[2017-04-20] MEDS: Insulin LISPRO 300 UNITS/3 ML VIAL SQ SCH ×4 (07:53→20:58)
--- NOTE | 2017-04-20 09:17 | Cardiothoracic Progress Note ---
Date of Encounter: 04/20/17 Time of Encounter: 09:15 - Assessment and plan (1) CAD (coronary artery disease) Current Visit: Yes Status: Chronic I will order milk of magnesia for constipation. The patient and his desired discharged to an extended care facility. Hopefully, this can be done on Friday. Qualifiers: Coronary Disease-Associated Artery/Lesion type: [place] artery [place] vs. transplanted heart: [place] heart Associated angina: with stable angina Qualified Code(s): I25.118 - Atherosclerotic heart disease of [place] coronary artery with other forms of angina pectoris - Subjective Interval history: The patient complains of mild constipation. Vital Signs, Last 4 Hours Temp Pulse Resp BP Pulse Ox 04/20/17 07:38 99.3 F 94 18 159/84 95 04/20/17 07:35 99.3 F 94 18 159/84 95 Oxgyen Flow Rate Oxygen Flow Rate (LPM) 2 Clinical Data, last 8 Hours Output, Urine Amount 0 Weight 04/18/17 04/19/17 04/20/17 23:59 23:59 23:59 Weight 109.9 kg 107.8 kg 106.5 kg Lungs are clear to percussion and auscultation. Heart is in a normal sinus rhythm. All incisions are healing well without signs of infection and the sternum is stable. - Labs 04/19/17 04:29 04/19/17 04:29 Lab Results, Last 24 hours 04/19/17 04:29 Magnesium Cancelled - VTE Documentation of Mechanical Device: Graduated compression elastic hosiery Consult Discharge Plan - Plan Referrals: Carlo Lomax MD [Primary Care Provider] -
[2017-04-20] MEDS ORDERED: MOM Conc 10 ML UD.LIQ PO PRN (09:18)
[2017-04-20] MEDS: Beclomethasone 80mcg MDI IH SCH ×2 (11:07→20:49)
[2017-04-20] MEDS: Ipratropium 1 PUFF INHALER IH PRN (20:50)
[2017-04-20] MEDS: Gabapentin 300 MG CAPSULE PO SCH (20:57)
[2017-04-21 00:56] LABS: Basophils % 0.2 %; Eosinophils # 0.4 K/mcL (0.0-0.6); Eosinophils % 3.8 %; Hematocrit 29.1 % (37.5-50.1); Hemoglobin 9.2 g/dL (12.9-16.9); Immature Granulocytes % 2.2 % (0-4); Lymphocytes # 1.3 K/mcL (0.6-4.6); Lymphocytes % 12.3 %; Mean Corpuscular HGB Conc 31.6 g/dL (31.6-35.5); Mean Corpuscular Hemoglobin 27.2 pg (28.0-33.3); Mean Corpuscular Volume 86.1 fL (83.0-100.0); Mean Platelet Volume 10.2 fL (9.4-12.4); Monocytes # 1.1 K/mcL (0.0-1.3); Monocytes % 11.1 %; Neutrophils # 7.3 K/mcL (1.6-8.9); Nucleated Red Blood Cells 0.3 /100 WBC (0); Platelet Count 391 K/mcL (140-400); Red Blood Count 3.38 M/mcL (4.19-5.50); Red Cell Distribution Width 17.3 % (11.5-14.5); Segmented Neutrophils % 70.4 %
[2017-04-21 01:10] LABS: BUN/Creatinine Ratio 33 (6-26); Calcium 8.5 mg/dL (8.6-10.8); Carbon Dioxide 27 mEq/L (19-29); Chloride 104 mEq/L (98-109); Glucose 116 mg/dL (70-99); Osmolality,Calculated 298 (280-300); Potassium 3.1 mEq/L (3.5-4.5); Sodium 140 mEq/L (136-145); eGFR For African Americans > 60 (> 60); eGFR For Non-African Americans > 60 (> 60)
[2017-04-21 01:11] LABS: Blood Urea Nitrogen 33 mg/dL (8-26)
[2017-04-21] MEDS: *HR* Heparin 5,000 UNIT/ML VIAL SQ SCH ×2 (06:16→18:55)
[2017-04-21] MEDS: *HR* OxyCODONE/APAP 5/325 TABLET PO PRN ×4 (06:43→20:56)
[2017-04-21] MEDS: Beclomethasone 80mcg MDI IH SCH ×2 (07:43→22:55)
[2017-04-21] MEDS: Ipratropium 1 PUFF INHALER IH PRN (07:44)
[2017-04-21] MEDS: Insulin LISPRO 300 UNITS/3 ML VIAL SQ SCH ×4 (09:05→21:02)
[2017-04-21] MEDS: Furosemide 20 MG/2 ML VIAL IVP SCH ×2 (09:06→20:28)
[2017-04-21] MEDS: Pantoprazole 40 MG VIAL IVP SCH (09:06)
[2017-04-21] MEDS: *HR* Amiodarone 200 MG TABLET PO SCH (09:06)
[2017-04-21] MEDS: Aspirin Enteric Coated 81 MG Tablet PO SCH (12:12)
--- NOTE | 2017-04-21 14:44 | Cardiothoracic Progress Note ---
Date of Encounter: 04/21/17 Time of Encounter: 14:42 - Assessment and plan (1) CAD (coronary artery disease) Current Visit: Yes Status: Chronic Hopefully, we can discharge the patient tomorrow. He is not sure if he wants to go to a rehabilitation facility or to be discharged to home. Qualifiers: Coronary Disease-Associated Artery/Lesion type: [place] artery [place] vs. transplanted heart: [place] heart Associated angina: with stable angina Qualified Code(s): I25.118 - Atherosclerotic heart disease of [place] coronary artery with other forms of angina pectoris - Subjective Interval history: The patient feels better. He did have a bowel movement. Vital Signs, Last 4 Hours Temp Pulse Resp BP Pulse Ox 04/21/17 12:00 98.4 F 73 17 126/71 94 Oxgyen Flow Rate Oxygen Flow Rate (LPM) 2 Weight 04/19/17 04/20/17 04/21/17 23:59 23:59 23:59 Weight 107.8 kg 106.5 kg 105.4 kg Lungs are clear to percussion and auscultation. Heart is in a normal sinus rhythm. All incisions are healing well without signs of infection and the sternum is stable. - Labs 04/21/17 00:26 04/21/17 00:26 Lab Results, Last 24 hours 04/21/17 04/21/17 00:26 00:26 WBC 10.3 Hgb 9.2 L Hct 29.1 L Plt Count 391 Sodium 140 Potassium 3.1 L Chloride 104 Carbon Dioxide 27 BUN 33 H D Creatinine 1.01 Glucose 116 H Calcium 8.5 L - VTE Documentation of Mechanical Device: Graduated compression elastic hosiery Consult Discharge Plan - Plan Referrals: Carlo Lomax MD [Primary Care Provider] - (UNABLE TO MAKE FOLLOW UP APPOINTMENT UNTIL WE HAVE DISCHARGE ORDER) Rustam Abarca, ALFRED [Advanced Practice Nurse] - (SENT REQUEST ON 04-21-17 @ [id number]) China Templeton MD [Partnered Physician] - 05/29/17 1:40 pm
[2017-04-21] MEDS: Gabapentin 300 MG CAPSULE PO SCH (20:29)
[2017-04-22] MEDS: *HR* Heparin 5,000 UNIT/ML VIAL SQ SCH (06:09)
[2017-04-22] MEDS: *HR* OxyCODONE/APAP 5/325 TABLET PO PRN (06:12)
--- NOTE | 2017-04-22 07:43 | Discharge Summary ---
Date of Encounter: 04/22/17 Time of Encounter: 07:38 - Discharge Diagnosis (1) CAD (coronary artery disease) Priority: Primary Status: Chronic Qualifiers: Coronary Disease-Associated Artery/Lesion type: [place] artery [place] vs. transplanted heart: [place] heart Associated angina: with stable angina Qualified Code(s): I25.118 - Atherosclerotic heart disease of [place] coronary artery with other forms of angina pectoris - Discharge Medications Prescriptions: OxyCODONE/APAP 5/325 [Percocet 5/325 MG] 1 each PO Q4HR PRN #30 tablet PRN Reason: Severe Pain Amiodarone [Cordarone] 200 mg PO DAILY #30 tablet Atorvastatin [Lipitor] 80 mg PO HS #30 tablet Home Medications: Allopurinol [Zyloprim 300 MG] 300 mg PO DAILY 01/18/16 [History] Colestipol HCl [Colestid] 1.5 gm PO DAILY PRN 01/18/16 [History] Gabapentin [Neurontin] 600 mg PO TID 01/18/16 [History] Lisinopril/Hydrochlorothiazide [Zestoretic 20-12.5 mg Tablet] 1 tab PO DAILY 08/25 [History] Meloxicam [Mobic] 15 mg PO DAILY 01/18/16 [History] Metformin HCl [Glucophage] 1,000 mg PO BID 01/18/16 [History] Montelukast [Singulair] 10 mg PO HS 01/18/16 [History] Omeprazole [PriLOSEC] 40 mg PO BID 01/18/16 [History] Aspirin 81 mg PO HS 12/06/16 [History] Glimepiride [Amaryl] 4 mg PO QAM 12/06/16 [History] Albuterol Sulfate [Proair Hfa] 2 puff IH Q4H PRN 04/11/17 [History] Diclofenac Sodium [Voltaren] 100 gm TP QID 04/11/17 [History] Dicyclomine [Bentyl] 10 - 20 mg PO QID 04/11/17 [History] Glimepiride [Amaryl] 2 mg PO QPM 04/11/17 [History] Levomefolate/B6/B12/Algal Oil [Metanx Capsule] 2 cap PO DAILY 04/11/17 [History] Metoprolol Succinate 25 mg PO DAILY 04/11/17 [History] Nitroglycerin [Nitrostat] 0.4 mg SL AD PRN 04/11/17 [History] Amiodarone [Cordarone] 200 mg PO DAILY #30 tablet 04/22/17 [Rx] Aspirin Enteric Coated [Aspirin EC] 81 mg PO DAILY tablet. 04/22/17 [Rx] Atorvastatin [Lipitor] 80 mg PO HS #30 tablet 04/22/17 [Rx] OxyCODONE/APAP 5/325 [Percocet 5/325 MG] 1 each PO Q4HR PRN #30 tablet 04/22/17 [Rx] Allergies/Adverse Reactions: Allergies No Known Allergies Allergy (Verified 12/06/16 14:26) Date of admission: 04/11/17 11:40 Primary care physician: Carlo Lomax MD Consults: 04/14/17 16:49 Consult to Cardiac Rehabilitation-Phase1 [CONS] Routine Comment: Reason for Consult: Post open heart Call Completed: Yes 04/17/17 07:35 Consult to Nephrology [CONS] Routine Consulting Provider: Kidney Jillian/BERNARDINO/CINDY/FIORELLA Reason for Consult: Postoperative renal insufficiency. Time Notified: 07:00 Call Completed: Yes Procedure(s) Performed: April 14, 2017. Coronary artery bypass grafting 3, utilizing the left internal mammary artery. Discharging clinician: Stan Ackerman Anticipated date of discharge: 04/22/17 - Patient Status Disposition: Home, Self-Care Condition: Fair Functional capacity at discharge: independent ambulation Overall status at discharge: patient is progressing back to baseline - Discharge Instructions Follow Up With: Carlo Lomax MD [Primary Care Provider] - (UNABLE TO MAKE FOLLOW UP APPOINTMENT UNTIL WE HAVE DISCHARGE ORDER) Rustam Abarca CNP [Advanced Practice Nurse] - (SENT REQUEST ON 04-21-17 @ 0853) China Templeton MD [Partnered Physician] - 05/29/17 1:40 pm - Hospital Course Hospital course: Mr. Moncada is a 72 year old male The patient is a 72-year-old gentleman who has a history of diabetes, hypertension and hypercholesterolemia. He presented with angina with exertion. Cardiac catheterization revealed severe coronary artery disease and on April 14, 2017, my partner Dr. Templeton took the patient to the operating room for coronary artery bypass grafting 3, utilizing his left internal mammary artery. Postoperatively the patient was seen by pulmonology and nephrology. Creatinine was down to 1.3 prior to discharge. Chest tubes were removed. Pacing wires were removed on April 22. The patient otherwise did well was discharged on April 22. At that time he was afebrile. Lungs were clear to percussion and auscultation. Heart was in a normal sinus rhythm. All incisions were healing well without signs of infection and the sternum was stable. Discharge medications are on the [facility] and include Percocet for pain. I did check the [place] automated Rx reporting system. He was postoperative and did receive a 1 week supply. Appropriate precautions were given. He was to return to his previous and regular diet. He was to avoid heavy lifting for a total of 3 months after surgery, but to walk as much as possible. He was to avoid driving for 1 month. He was to follow up and see Dr. Templeton in 4 weeks as directed. He was to follow- up with his superintendent laundry and family doctor as directed. He was to call sooner for any difficulties. - Time Spent with Patient Total time spent providing and/or coordinating discharge services: Physical Examination Vital Signs, Last 4 Hours Temp Pulse Resp BP Pulse Ox 04/22/17 07:18 82 18 132/73 93 04/22/17 04:50 98.3 F 73 12 120/68 94 04/22/17 04:20 75 [facility] Aspirin Cont/Prescribed at DC: Yes Beta Inder Cont/Prescribed at DC: Yes Statin Cont/Prescribed at DC: Yes LUCI/ARB Cont/Prescribed at DC: Not indicated - VTE Documentation of Mechanical Device: Graduated compression elastic hosiery
[2017-04-22] MEDS: Beclomethasone 80mcg MDI IH SCH (08:18)
[2017-04-22] MEDS: Ipratropium 1 PUFF INHALER IH PRN (08:18)
[2017-04-22] MEDS: Insulin LISPRO 300 UNITS/3 ML VIAL SQ SCH ×2 (09:24→12:21)
[2017-04-22] MEDS: Pantoprazole 40 MG VIAL IVP SCH (09:25)
[2017-04-22] MEDS: *HR* Amiodarone 200 MG TABLET PO SCH (09:25)
[2017-04-22] MEDS: Aspirin Enteric Coated 81 MG Tablet PO SCH (09:25)
[2017-04-22] MEDS: Furosemide 20 MG/2 ML VIAL IVP SCH (09:26)
[2017-04-22 12:20] VITALS: BP 135/76
== END 2017-04-22 15:01 | disposition home or self-care (01) | DRG 233 ==
LOC: 2NENU 08:25 → INVDIALAB 08:25 → ICNU 04-14 12:40 → 2NNU 04-17 17:08
PROVIDERS: ADMIT Emergency Medicine; ATTEND Thoracic Surgery (Cardiothoracic Vascular Surgery)

== ENCOUNTER 2017-10-27 17:59 | Observation (INO) ==
[2017-10-27 20:00] LABS: Basophils % 0.4 %; Eosinophils # 0.2 K/mcL (0.0-0.6); Eosinophils % 2.2 %; Hematocrit 37.7 % (37.5-50.1); Hemoglobin 12.3 g/dL (12.9-16.9); Immature Granulocytes % 0.1 % (0-4); Immature Platelets 3.7 % (1.1-6.1); Lymphocytes # 1.9 K/mcL (0.6-4.6); Lymphocytes % 22.7 %; Mean Corpuscular HGB Conc 32.6 g/dL (31.6-35.5); Mean Corpuscular Hemoglobin 29.6 pg (28.0-33.3); Mean Corpuscular Volume 90.6 fL (83.0-100.0); Mean Platelet Volume 10.3 fL (9.4-12.4); Monocytes # 0.7 K/mcL (0.0-1.3); Monocytes % 8.7 %; Neutrophils # 5.4 K/mcL (1.6-8.9); Platelet Count 306 K/mcL (140-400); Red Blood Count 4.16 M/mcL (4.19-5.50); Red Cell Distribution Width 18.3 % (11.5-14.5); Segmented Neutrophils % 65.9 %
[2017-10-27 20:13] LABS: BUN/Creatinine Ratio 15 (6-26); Blood Urea Nitrogen 19 mg/dL (8-26); Calcium 9.5 mg/dL (8.6-10.8); Carbon Dioxide 30 mEq/L (19-29); Chloride 105 mEq/L (98-109); Glucose 105 mg/dL (70-99); Osmolality,Calculated 299 (280-300); Potassium 4.3 mEq/L (3.5-4.5); Sodium 143 mEq/L (136-145); eGFR For African Americans > 60 (> 60); eGFR For Non-African Americans 55 (> 60)
--- NOTE | 2017-10-27 20:37 | Emergency Department Note ---
Disposition Clinical Impression: HTN (hypertension), Chest pain, Status post coronary artery bypass graft Disposition: Admitted As Inpatient Condition: Fair Referrals: Goran Cobb MD [Primary Care Provider] - Forms: ED Satisfaction Letter Time of Disposition: 20:39 Chest Pain HPI - General Chief Complaint: ED Chest Pain Stated Complaint: CP Time Seen by Provider: 10/27/17 19:52 Source: patient, family Mode of arrival: ambulatory Limitations: no limitations Vital Signs Reviewed: Yes Nursing Notes Reviewed: Yes - History of Present Illness HPI Narrative: Patient presents to the ED with the chief complaint of chest pain and hypertension. Patient has a history of CABG in April of this year and is followed by cardiology , Dr. Bhagat. States that over the last month he has been having recurrent chest pain that is his anginal equivalent. He has been seeing Dr. Bhagat who has been adjusting his blood pressure medications. States that these have not been helping and his pressures have been in the 150s in the 160s. He states that for the last 2 weeks he has been having intermittent centralized chest pressure and heaviness. Also having significant exertional dyspnea. States that the pain causes him to have left jaw pain and numbness. States that previously he had all of the symptoms, plus left arm pain, but since his CABG she has not had the left arm pain. There is no nausea or diaphoresis. He states that his utility agent wanted him to come to the ER to be admitted. He also has a history of congestive heart failure and states that he has gained 3 or 4 pounds in the last week despite taking his Lasix. Does complain of some increasing shortness of breath above baseline, which feels like his CHF and states his fluid normally collects in his abdomen but he is not as distended as usual. Severity scale (1-10): 0 - Related Data Home Medications Medication Instructions Recorded Confirmed Allopurinol [Zyloprim 300 MG] 300 mg PO DAILY 01/18/16 07/01/17 Colestipol HCl [Colestid] 1.5 gm PO DAILY PRN 01/18/16 07/01/17 Gabapentin [Neurontin] 600 mg PO TID 01/18/16 07/01/17 Meloxicam [Mobic] 15 mg PO DAILY 01/18/16 07/01/17 Metformin HCl [Glucophage] 1,000 mg PO BID 01/18/16 07/01/17 Montelukast [Singulair] 10 mg PO HS 01/18/16 07/01/17 Omeprazole [PriLOSEC] 40 mg PO BID 01/18/16 07/01/17 Glimepiride [Amaryl] 4 mg PO QAM 12/06/16 07/01/17 Dicyclomine [Bentyl] 10 - 20 mg PO QID 04/11/17 07/01/17 Glimepiride [Amaryl] 2 mg PO QPM 04/11/17 07/01/17 Metoprolol Succinate 25 mg PO DAILY 04/11/17 07/01/17 Nitroglycerin [Nitrostat] 0.4 mg SL AD PRN 04/11/17 07/01/17 Budesonide [Pulmicort Flexhaler 2 puff IH BID 07/01/17 07/01/17 90mcg] Furosemide [Lasix] 40 mg PO DAILY 07/01/17 07/01/17 Potassium Chloride [K-Tab ER] 20 meq PO DAILY 07/01/17 07/01/17 Tramadol HCl/Acetaminophen 2 each PO PRN PRN 07/01/17 07/01/17 [Ultracet Tablet] Losartan [Cozaar] 50 mg PO DAILY 07/07/17 07/07/17 Previous Rx's Medication Instructions Recorded Amiodarone [Cordarone] 200 mg PO DAILY #30 tablet 04/22/17 Aspirin Enteric Coated [Aspirin EC] 81 mg PO DAILY tablet. 04/22/17 Atorvastatin [Lipitor] 80 mg PO HS #30 tablet 04/22/17 Allergies Allergy/AdvReac Type Severity Reaction Status Date / Time lisinopril AdvReac Intermediate Cough Verified 10/27/17 18:11 albuterol Allergy Severe See Uncoded 10/27/17 18:11 Comments All systems ED: reviewed and negative except as stated. Constitutional: Denies: fever Cardiovascular: Reports: chest pain, dyspnea on exertion, orthopnea, edema Respiratory: Reports: dyspnea Gastrointestinal: Denies: abdominal pain Neurological: Denies: headache Chest Pain PMH - Past Medical History Medical history: Reports: arthritis, asthma, atrial fibrillation, CHF, coronary artery disease, diabetes, GERD, glaucoma, hyperlipidemia, hypertension, kidney stones, myocardial infarction, pulmonary embolus Surgical history: Reports: cholecystectomy, knee replacement, orthopedic, other , other (Cervical fusion 3, lumbar fusion) Psychiatric history: Reports: no psych history - Social History Smoking Status: Never smoker Alcohol use: Reports: none Drug use: Reports: none Physical Exam - General Limitations: no limitations General appearance: alert, in no apparent distress - Head Head exam: atraumatic, normocephalic, normal inspection - Eye Eye exam: Present: normal appearance, PERRL, EOMI - ENT ENT exam: normal exam, normal oropharynx, mucous membranes moist - Neck Neck exam: Present: normal inspection, full ROM, trachea midline - Chest Chest inspection: Present: normal inspection, symmetric chest wall rise, other ( CABG scar, well healed ) - Respiratory Respiratory exam: Present: normal lung sounds bilaterally. Absent: accessory muscle use - Cardiovascular Cardiovascular exam: Present: regular rate, normal rhythm, normal heart sounds - Abdominal Exam Abdominal exam: Present: soft, Non-Tender, distention. Absent: tenderness, guarding, rebound, rigidity - Extremities Exam Extremities exam: Present: normal inspection, full ROM. Absent: tenderness, pedal edema - Neurological Exam Neurological exam: Present: alert, oriented X3 - Psychiatric Psychiatric exam: Present: normal affect, normal mood - Skin Skin exam: Present: warm, dry, intact, normal color Course Course Narrative: 72 -year-old male presenting with his anginal [place]. Nitroglycerin does help. Intermittent over the last few weeks. Cardiology sent him over here to be admitted for further workup. Vital Signs Temperature 98.5 F 10/27/17 18:08 Pulse Rate 79 10/27/17 18:08 Respiratory Rate 18 10/27/17 18:08 Blood Pressure 166/92 10/27/17 18:08 O2 Sat by Pulse Oximetry 97 10/27/17 18:08 Temperature 98.5 F 10/27/17 18:08 Pulse Rate 75 10/27/17 20:17 Respiratory Rate 18 10/27/17 20:17 Blood Pressure 158/88 10/27/17 20:17 O2 Sat by Pulse Oximetry 98 10/27/17 20:17 Oxygen Delivery Oxygen Delivery Room Air Chest Pain - Medical Records Medical records reviewed: Yes I reviewed the patient's medical records. - Lab Data Lab results reviewed: Yes I reviewed the patient's lab results. Result diagrams: 10/27/17 19:52 10/27/17 19:52 Lab Results 10/27/17 10/27/17 10/27/17 Range/Units 19:52 19:52 19:52 WBC 8.2 (4.3-11.1) K/mcL RBC 4.16 L (4.19-5.50) M/mcL Hgb 12.3 L (12.9-16.9) g/dL Hct 37.7 (37.5-50.1) % MCV 90.6 (83.0-100.0) fL MCH 29.6 (28.0-33.3) pg MCHC 32.6 (31.6-35.5) g/dL RDW 18.3 H (11.5-14.5) % Plt Count 306 (140-400) K/mcL MPV 10.3 (9.4-12.4) fL Immature Gran % 0.1 (0-4) % Seg Neutrophils % 65.9 % Lymphocytes % 22.7 % Monocytes % 8.7 % Eosinophils % 2.2 % Basophils % 0.4 % Neutrophils # 5.4 (1.6-8.9) K/mcL Lymphocytes # 1.9 (0.6-4.6) K/mcL Monocytes # 0.7 (0.0-1.3) K/mcL Eosinophils # 0.2 (0.0-0.6) K/mcL Basophils # 0.0 (0.0-0.2) K/mcL Immature Plt Fraction 3.7 (1.1-6.1) % Sodium 143 (136-145) mEq/L Potassium 4.3 (3.5-4.5) mEq/L Chloride 105 (98-109) mEq/L Carbon Dioxide 30 H (19-29) mEq/L BUN 19 (8-26) mg/dL Creatinine 1.29 H (0.72-1.25) mg/dL Est GFR ( Amer) > 60 (> 60) Est GFR (Non-Af Amer) 55 L (> 60) BUN/Creatinine Ratio 15 (6-26) Glucose 105 H (70-99) mg/dL Calculated Osmolality 299 (280-300) Calcium 9.5 (8.6-10.8) mg/dL Troponin I 0.01 (0-0.03) ng/mL - Radiology Data Radiology results reviewed: Yes I reviewed the patient's radiology results. Chest X-Ray 10/27/17 18:11 IMPRESSION: 1. No active pulmonary disease. D/ / Rashaad Bruner MD / Rashaad Bruner MD Interpreting Provider: Rashaad Bruner MD - EKG Data EKG attestation: Yes I reviewed and interpreted this EKG. EKG results narrative: Sinus rhythm, rate 78, IL interval 189, QRS 113, QTC 437, left axis deviation, no acute ischemic changes. S.B.Maurizio - S.B.A.Brenda Situation: Demographics, MOA Background: Presenting Complaint, Relevant PMH, Meds, & Allergies Assessment: Vital Signs, Course and respsone to treatment, Exam Concerns, Patient/Family Expectation, Pertinant Lab Results, Outstanding Labs Recommendation: Recommendation based on pending studies, treatments, or consults S.B.A.RChauncey Report Given to: Dr. Emanuel ReisBViri Repor Time: 20:51 Attestation Statement - Attestation Attestation: I, Stan Schultz MD, personally evaluated this patient and discussed their management with the resident physician. I reviewed the resident's note and agree with the documented findings, medical decision making, and plan of care. 72-year-old male referred to the emergency department by his utility agent for evaluation of persistent chest pains over the past month. Patient describes it as a substernal pressure. He also has discomfort in his left jaw associated with a substernal pressure. Patient had CABG about 6 months ago and has done well until the past month or so. He states he has been having this chest pain intermittently and it seems to be getting progressively worse. The pain is usually relieved with one nitroglycerin however a few nights ago he had to take 2 nitroglycerin. No pain at present. He does have shortness of breath and fatigue associated with the episodes of chest discomfort. No diaphoresis. Some nausea. On examination patient is a well-developed well-nourished well-appearing elderly male in no acute distress. He is alert and oriented 3. There is no cyanosis or diaphoresis. Chest is nontender to palpation. Breath sounds are clear and equal bilaterally. Heart regular rate and rhythm. Abdomen soft and nontender with normal bowel sounds. No pedal edema noted. Labs reviewed. Troponin normal. Chest x-ray negative. No acute changes on EKG. The hospitalist, Dr. Castellanos, was consulted and accepted admission of the patient.
[2017-10-27] MEDS ORDERED: Nitroglycerin 0.4 MG TAB.SUBL SL PRN (21:36)
[2017-10-27] MEDS ORDERED: Levalbuterol 1 PUFF INHALER IH PRN (21:36)
[2017-10-27] MEDS ORDERED: COLESTIPOL HCL PO PRN (21:36)
[2017-10-27] MEDS ORDERED: traMADol 50 MG TABLET PO PRN (21:36)
[2017-10-27] MEDS ORDERED: Naloxone 0.4 MG/ML INJ IVP PRN (21:38)
[2017-10-27] MEDS ORDERED: *HR* Dextrose 50 % in Water (Syg) 50 ML SYRINGE IVP PRN (21:41)
[2017-10-27] MEDS ORDERED: D5% in Water 1,000 ML IVC PRN (21:41)
[2017-10-27] MEDS ORDERED: Dextrose Gel 15 GM PO PRN ×2 (21:41)
--- NOTE | 2017-10-27 21:46 | Internal Med History&Physical ---
Date of Encounter: 10/27/17 Time of Encounter: 21:44 Assessment and Plan (1) Unstable angina pectoris Current visit: Yes Status: Acute consult Dr Bhagat to co-manage. Was told by card to get admitted to optimize medical management per report Continue coreg 6.25 BID Add imdur Optimizing cardiac meds (BB, nitrate, Ca jacques, renexa as needed ??). Pending further card eval trend trop check TSH/FT4 for fatigue (2) HTN (hypertension) Current visit: Yes Status: Chronic watch BP while adjusting cardiac meds Qualifiers: Hypertension type: essential hypertension (3) DMII (diabetes mellitus, type 2) Current visit: No Status: Chronic ISS for now. Hold oral agents Qualifiers: Diabetes mellitus complication status: without complication Diabetes mellitus long term care pharmacist insulin use: without shelter use Qualified Code(s): E11.9 - Type 2 diabetes mellitus without complications (4) HLD (hyperlipidemia) Current visit: No Status: Chronic Qualifiers: Hyperlipidemia type: pure hypercholesterolemia Qualified Code(s): E78.00 - Pure hypercholesterolemia, unspecified; E78.0 - Pure hypercholesterolemia (5) CAD (coronary artery disease) Current visit: No Status: Chronic Qualifiers: Coronary Disease-Associated Artery/Lesion type: bypass graft [place] vs. transplanted heart: unspecified whether [place] or transplanted heart Associated angina: with unstable angina Qualified Code(s): I25.700 - Atherosclerosis of coronary artery bypass graft(s), unspecified, with unstable angina pectoris Internal Medicine - H&P: HPI Chief complaint: CP History of present illness: Mr. Moncada is a 72 year old male who presents with subacute onset CP. He has CAD and s/p CABG in april [address] Templeton and has been medically managed by Dr Bhagat of cardiology. He has been having unstable angina type symptoms for the last 1 month, on and off. Dr Bhagat has been attempting to optimize cardiac meds but to little avail. He reports CP may not be related to exertion. When it comes on, it would be sternal in nature, 5-6/10, sharp and pressure like sensation. Relieved with nitro. Radiation to jaw. Lasting for hours on several occasions. He has been feeling tired. EKG personally reviewed with rat 78, NSR, ST-T flattening along V3,4 XR/XR chest 2V IMPRESSION: 1. No active pulmonary disease. Past Med Surg Social Fam HX - Past Medical History Medical history: arthritis, asthma, atrial fibrillation, CHF, coronary artery disease, diabetes, GERD, glaucoma, hyperlipidemia, hypertension, kidney stones, myocardial infarction, pulmonary embolus Psychiatric history: no psych history - Past Surgical History Surgical History: cholecystectomy, knee replacement, orthopedic, other, other ( Cervical fusion 3, lumbar fusion) - Social History Smoking Status: Never smoker Smokeless Tobacco Status: No Alcohol use: none Drug use: none - Family History Mother Hx Family Cancer: Yes Father Living Status: Hx Family Cardiac Disorders: Yes (father,self) Hx Family Respiratory Disorders: Yes (self asthma) Hx Family Cancer: Yes (father) Hx Family GI Disorders: Yes (brother) Hx Family Endocrine Disorder: Yes (self, son, brother) Hx Family Neuromuscular Disorders: No Hx Family Neurologic Disorders: Yes (father) Hx Family HEENT Disorders: No Hx Family Autoimmune Disorders: No Internal Medicine - H&P: Meds Allopurinol [Zyloprim 300 MG] 300 mg PO DAILY 01/18/16 [History] Colestipol HCl [Colestid] 1.5 gm PO DAILY PRN 01/18/16 [History] Gabapentin [Neurontin] 600 mg PO TID 01/18/16 [History] Meloxicam [Mobic] 15 mg PO DAILY 01/18/16 [History] Metformin HCl [Glucophage] 1,000 mg PO BID 01/18/16 [History] Montelukast [Singulair] 10 mg PO HS 01/18/16 [History] Omeprazole [PriLOSEC] 40 mg PO BID 01/18/16 [History] Glimepiride [Amaryl] 4 mg PO QAM 12/06/16 [History] Dicyclomine [Bentyl] 10 - 20 mg PO QID 04/11/17 [History] Glimepiride [Amaryl] 2 mg PO QPM 04/11/17 [History] Nitroglycerin [Nitrostat] 0.4 mg SL Q5M PRN 04/11/17 [History] Aspirin Enteric Coated [Aspirin EC] 81 mg PO DAILY tablet. 04/22/17 [Rx] Atorvastatin [Lipitor] 80 mg PO HS #30 tablet 04/22/17 [Rx] Budesonide [Pulmicort Flexhaler 90mcg] 2 puff IH BID 07/01/17 [History] Furosemide [Lasix] 40 mg PO DAILY 07/01/17 [History] Potassium Chloride [K-Tab ER] 20 meq PO DAILY 07/01/17 [History] Tramadol HCl/Acetaminophen [Ultracet Tablet] 2 each PO Q6H PRN 07/01/17 [History ] Losartan [Cozaar] 50 mg PO DAILY 07/07/17 [History] Carvedilol [Coreg] 6.25 mg PO BIDWM 10/27/17 [History] Ferrous Sulfate 325 mg PO DAILY 10/27/17 [History] Levalbuterol Tartrate [Xopenex Hfa] 1 puff IH Q4H PRN 10/27/17 [History] 3 Allergy/AdvReac Type Severity Reaction Status Date / Time lisinopril AdvReac Intermediate Cough Verified 10/27/17 18:11 albuterol Allergy Severe See Uncoded 10/27/17 18:11 Comments All Systems PM: A 10-system review of systems was performed and is negative for pertinent findings except as documented above in the HPI. Review of systems: ROS 14 point review of systems reviewed as best as possible given presentation. Pertinent positive or negative as per HPI or otherwise reviewed as negative - Constitutional Vitals: Temp Pulse Resp BP Pulse Ox 98.5 F 77 14 141/87 96 10/27/17 18:08 10/27/17 21:08 10/27/17 21:08 10/27/17 21:08 10/27/17 21:08 Exam: General - AAO x 3 Psych - Appropriate affect/speech. No agitation Eyes - RODERICK. Eye lids intact. No scleral icterus Neuro - No gross peripheral or central neuro deficits with intact CN 2-12 exam Heart - Sinus. RRR. S1 and S2 present. No added HS/murmurs appreciated. No elevated JVD appreciated. Lung - Adequate air entry b/l, No crackles/wheezes appreciated GI - Soft, non-tender. No hepatosplenomegaly/ascites. BS+ - No CVA/suprapubic tenderness or palpable bladder distension Skin - Intact. No rash/petechiae/ecchymosis. +1 b/l LE edema Internal Med - H&P Results - Labs CBC & Chem 7: 10/27/17 19:52 10/27/17 19:52
[2017-10-27] MEDS ORDERED: Acetaminophen 325 MG TABLET PO PRN (22:33)
[2017-10-28] MEDS: Aspirin Enteric Coated 81 MG Tablet PO SCH ×2 (01:41→08:59)
[2017-10-28 04:00] LABS: Basophils % 0.6 %; Eosinophils # 0.2 K/mcL (0.0-0.6); Eosinophils % 3.3 %; Hematocrit 36.3 % (37.5-50.1); Hemoglobin 11.9 g/dL (12.9-16.9); Immature Granulocytes % 0.3 % (0-4); Lymphocytes # 1.7 K/mcL (0.6-4.6); Lymphocytes % 24.3 %; Mean Corpuscular HGB Conc 32.8 g/dL (31.6-35.5); Mean Corpuscular Hemoglobin 29.3 pg (28.0-33.3); Mean Corpuscular Volume 89.4 fL (83.0-100.0); Mean Platelet Volume 10.4 fL (9.4-12.4); Monocytes # 0.8 K/mcL (0.0-1.3); Neutrophils # 4.2 K/mcL (1.6-8.9); Platelet Count 278 K/mcL (140-400); Red Blood Count 4.06 M/mcL (4.19-5.50); Red Cell Distribution Width 18.2 % (11.5-14.5); Segmented Neutrophils % 60.5 %
[2017-10-28 04:12] LABS: BUN/Creatinine Ratio 15 (6-26); Blood Urea Nitrogen 18 mg/dL (8-26); Calcium 9.4 mg/dL (8.6-10.8); Carbon Dioxide 25 mEq/L (19-29); Chloride 105 mEq/L (98-109); Glucose 135 mg/dL (70-99); Osmolality,Calculated 298 (280-300); Potassium 3.7 mEq/L (3.5-4.5); Sodium 142 mEq/L (136-145); eGFR For African Americans > 60 (> 60); eGFR For Non-African Americans 58 (> 60)
[2017-10-28] MEDS: Insulin LISPRO 300 UNITS/3 ML VIAL SQ SCH ×4 (07:34→21:56)
[2017-10-28] MEDS: Gabapentin 300 MG CAPSULE PO SCH ×3 (08:59→20:21)
[2017-10-28] MEDS: Isosorbide MONOnitrate (24 HR) 60 MG TAB.ER.24H PO SCH (08:59)
[2017-10-28] MEDS ORDERED: Beclomethasone 40mcg MDI IH SCH (09:00)
[2017-10-28] MEDS: Beclomethasone 40mcg MDI IH SCH ×2 (10:57→23:15)
--- NOTE | 2017-10-28 11:49 | Cardiology Consult Note ---
Addendum entered and electronically signed by Brandin Davison CNP 10/28/17 12:55 : Telemetry review shows SR. No significant tachycardia or afib seen. No bradycardia. Original Note: <Brandin Davison - Last Filed: 10/28/17 11:37> Date of Encounter: 10/28/17 Time of Encounter: 11:37 Assessment and Plan (1) Chest pain Current Visit: Yes Status: Acute C/o intermittent chest pain for six weeks increasing in severity and frequency. Symptoms associated with SOB, fatiguem and diaphoresis. Symptoms ongoing despite medication changes. Troponin is negative x3. EKG ordered- no EKG on floor or in computer. Check TTE. NPO after midnight for possible stress test vs [facility]. Discussed with and patient who agree. Qualifiers: Chest pain type: unspecified Qualified Code(s): R07.9 - Chest pain, unspecified (2) CAD (coronary artery disease) Current Visit: No Status: Chronic H/o 3V CABG 04/2017. (OMER to LAD, SVG to OM1, SVG to PDA). Continue asa, statin, and bb. Previous cardiac testing: [facility] 04/11/17: EF 50%. There is a 70% stenosis in the Proximal LAD. 95% stenosis in the Mid LAD. 90% stenosis in the Mid Circumflex. 80% stenosis in the high 1st Marginal. 100% stenosis in the Mid RCA. Qualifiers: Coronary Disease-Associated Artery/Lesion type: bypass graft [place] vs. transplanted heart: unspecified whether [place] or transplanted heart Associated angina: with unstable angina Qualified Code(s): I25.700 - Atherosclerosis of coronary artery bypass graft(s), unspecified, with unstable angina pectoris Discussion w patient/family: The assessment and plan as outlined above was discussed with the patient and/or family members who expressed understanding and agreement. All questions were answered. Thank you for involving us in the care of your patient. Please call with any questions. History of Present Illness Consult date: 10/28/17 Requesting physician: Nakul Elizabeth Consult reason: unstable angina Chief complaint: Chest pain, fatigue, and SOB History of present illness: Mr. Moncada is a 72 year old male with a past medical history of CAD s/p 3V CABG 04/2017, post operative afib, HTN, HLD, and DM who presented with the c/o chest pain, fatigue, SOB, and diaphoresis. He reports feeling well after his CABG for a few months. When he was in his last two week of cardiac rehab he started having SOB with exertion and developed fatigue. Shortly after he developed intermittent mid sternal heaviness that occurs with activity or rest. He followed with Dr. Bhagat in the [facility] office and reported medication changes including changing his beta jacques from metoprolol to carvedilol and an increase in imdur. His Amiodarone was also stopped at that time. He reports feeling better initially but symptoms returned. He c/o chest pain waking him from his sleep associated with diaphoresis. He took 1 SL NTG with relief. Reports taking up to two SL NTG for relief in the past 48 hours. Past Med Surg Social Fam HX - Past Medical History Attestation: Yes The following information was validated with the patient. Medical history: arthritis, asthma, atrial fibrillation, CHF, coronary artery disease, diabetes, GERD, glaucoma, hyperlipidemia, hypertension, kidney stones, myocardial infarction, pulmonary embolus Psychiatric history: no psych history - Past Surgical History Surgical History: cholecystectomy, knee replacement, orthopedic, other, other - Social History Smoking Status: Never smoker Smokeless Tobacco Status: No Alcohol use: none Drug use: none - Family History Mother Hx Family Cancer: Yes Father Living Status: Hx Family Cardiac Disorders: Yes (father,self) Hx Family Respiratory Disorders: Yes (self asthma) Hx Family Cancer: Yes (father) Hx Family GI Disorders: Yes (brother) Hx Family Endocrine Disorder: Yes (self, son, brother) Hx Family Neuromuscular Disorders: No Hx Family Neurologic Disorders: Yes (father) Hx Family HEENT Disorders: No Hx Family Autoimmune Disorders: No Medications and Allergies Allopurinol [Zyloprim 300 MG] 300 mg PO DAILY 01/18/16 [History] Colestipol HCl [Colestid] 1.5 gm PO DAILY PRN 01/18/16 [History] Gabapentin [Neurontin] 600 mg PO TID 01/18/16 [History] Meloxicam [Mobic] 15 mg PO DAILY 01/18/16 [History] Metformin HCl [Glucophage] 1,000 mg PO BID 01/18/16 [History] Montelukast [Singulair] 10 mg PO HS 03/10/16 [History] Omeprazole [PriLOSEC] 40 mg PO BID 01/18/16 [History] Glimepiride [Amaryl] 4 mg PO QAM 12/06/16 [History] Dicyclomine [Bentyl] 10 - 20 mg PO QID 04/11/17 [History] Glimepiride [Amaryl] 2 mg PO QPM 04/11/17 [History] Nitroglycerin [Nitrostat] 0.4 mg SL Q5M PRN 04/11/17 [History] Aspirin Enteric Coated [Aspirin EC] 81 mg PO DAILY tablet. 04/22/17 [Rx] Atorvastatin [Lipitor] 80 mg PO HS #30 tablet 04/22/17 [Rx] Budesonide [Pulmicort Flexhaler 90mcg] 2 puff IH BID 07/01/17 [History] Furosemide [Lasix] 40 mg PO DAILY 07/01/17 [History] Potassium Chloride [K-Tab ER] 20 meq PO DAILY 07/01/17 [History] Tramadol HCl/Acetaminophen [Ultracet Tablet] 2 each PO Q6H PRN 07/01/17 [History ] Losartan [Cozaar] 50 mg PO DAILY 07/07/17 [History] Carvedilol [Coreg] 6.25 mg PO BIDWM 10/27/17 [History] Ferrous Sulfate 325 mg PO DAILY 10/27/17 [History] Levalbuterol Tartrate [Xopenex Hfa] 1 puff IH Q4H PRN 10/27/17 [History] 3 Allergy/AdvReac Type Severity Reaction Status Date / Time lisinopril AdvReac Intermediate Cough Verified 10/27/17 18:11 albuterol Allergy Severe See Uncoded 10/27/17 18:11 Comments All Systems Review: A 10-system review of systems was performed and is negative for pertinent findings except as documented above in the HPI. Physical Examination Vital Signs, Last 4 Hours Temp Pulse Resp BP Pulse Ox 10/28/17 11:06 97.8 F 82 17 108/66 93 10/28/17 11:00 18 92 10/28/17 09:05 94 General: Conversant, No Apparent Distress HEENT: Atraumatic, Normocephaly, Mucus Membranes Moist Neck: No JVD, Normal carotid pulses Cardiac: Reg Rate and Rhythm, Normal S1 and S2, No Murmur Lungs: Normal Breath Sounds, No Wheeze, Rales, Rhonchi Neuro: Alert and responsive, No focal deficits noted Abdomen: Soft, Non-Tender Skin: No rashes noted on visualized skin Musculoskeletal: No Chest Wall Tenderness Extremities: No Clubbing, No Cyanosis, No Edema, Normal Pulses Results 10/28/17 03:50 10/28/17 03:50 Lab Results 10/27/17 10/28/17 10/28/17 21:51 03:50 03:50 WBC 6.9 Hgb 11.9 L Hct 36.3 L Plt Count 278 Sodium Potassium Chloride Carbon Dioxide BUN Creatinine Glucose Calcium Magnesium Troponin I 0.01 0.01 10/28/17 10/28/17 03:50 09:13 WBC Hgb Hct Plt Count Sodium 142 Potassium 3.7 Chloride 105 Carbon Dioxide 25 BUN 18 Creatinine 1.23 Glucose 135 H Calcium 9.4 Magnesium 2.0 Troponin I 0.01 - Imaging and Cardiology Echo: pending - EKG Interpretation EKG results cardiology: other (EKG ordered) Consult Discharge Plan - Plan Referrals: Goran Cobb MD [Primary Care Provider] - <Elda Frazier - Last Filed: 10/28/17 15:52> Date of Encounter: 10/28/17 - Attending Attestation I have personally performed a face to face evaluation on this patient. I have reviewed and agree with the care plan with [employer]. Mr. Moncada is a very pleasant 72-year-old male presenting for chest discomfort. Medical history is significant for a three-vessel bypass performed in April 2017. He was doing well for several months until recently when he developed acute onset of profound fatigue noticed during his last 2 weeks of cardiac rehabilitation. Since that time, he is also had episodes of both typical and atypical chest pain symptoms. He has been seen twice in the outpatient cardiology clinic for these symptoms. Medications were adjusted. He apparently had significant chest discomfort the night of admission. He reports nitroglycerin sublingual has been helpful. At this point, symptoms of acute onset of profound fatigue, both typical and atypical symptoms may represent unstable angina. This is his third time he's been evaluated for the same issues. We discussed consideration for proceeding with left heart catheterization. His renal function is normal. The risks, benefits and alternatives of proceeding were discussed with the patient. He expressed understanding and agreed to proceed. Continue aspirin, statin and beta jacques. Assessment and Plan Discussion w patient/family: The assessment and plan as outlined above was discussed with the patient and/or family members who expressed understanding and agreement. All questions were answered. Thank you for involving us in the care of your patient. Please call with any questions. History of Present Illness History of present illness: Mr. Moncada is a 72 year old male All Systems Review: A 10-system review of systems was performed and is negative for pertinent findings except as documented above in the HPI. Results 10/28/17 03:50 10/28/17 03:50 Lab Results 10/27/17 10/28/17 10/28/17 21:51 03:50 03:50 WBC 6.9 Hgb 11.9 L Hct 36.3 L Plt Count 278 Sodium Potassium Chloride Carbon Dioxide BUN Creatinine Glucose Calcium Magnesium Troponin I 0.01 0.01 10/28/17 10/28/17 03:50 09:13 WBC Hgb Hct Plt Count Sodium 142 Potassium 3.7 Chloride 105 Carbon Dioxide 25 BUN 18 Creatinine 1.23 Glucose 135 H Calcium 9.4 Magnesium 2.0 Troponin I 0.01
[2017-10-28] MEDS ORDERED: Furosemide 40 MG/4 ML VIAL IVP ONE (15:53)
--- NOTE | 2017-10-28 16:42 | Electrocardiograph Report ---
[place] [id number] Test Date: 2017-10-27 Pat Name: Jovi Moncada Department: 102 Room: 2A Gender: M [employer]: Ramon : 1945 Requested By: Walter Estrada Order Number: [id number] Reading MD: Anthony Hayes DO Measurements Intervals [place] Rate: 78 P: 18 NE: 189 QRS: -65 QRSD: 113 T: 18 QT: 404 QTc: 437 Interpretive Statements SINUS RHYTHM INFERIOR MYOCARDIAL INFARCTION, PROBABLY OLD WITH POSTERIOR EXTENSION Electronically Signed On 10-28-2017 16:40:31 EST by Anthony Hayes DO
--- NOTE | 2017-10-28 19:03 | Internal Med Progress Note ---
Date of Encounter: 10/28/17 Time of Encounter: 13:00 - Assessment and plan (1) Chest pain Current Visit: Yes Status: Acute Assessment and plan: -Cardiology consulted for possible stress test vs [facility]. Qualifiers: Chest pain type: unspecified Qualified Code(s): R07.9 - Chest pain, unspecified (2) CAD (coronary artery disease) Current Visit: No Status: Chronic Assessment and plan: -Continue home medications Qualifiers: Coronary Disease-Associated Artery/Lesion type: bypass graft [place] vs. transplanted heart: unspecified whether [place] or transplanted heart Associated angina: with unstable angina Qualified Code(s): I25.700 - Atherosclerosis of coronary artery bypass graft(s), unspecified, with unstable angina pectoris (3) HTN (hypertension) Current Visit: Yes Status: Chronic Assessment and plan: Continue home medications Qualifiers: Hypertension type: essential hypertension Qualified Code(s): I10 - Essential (primary) hypertension - Subjective Interval history: Patient comfortable this morning; awaiting possible stress test vs [facility]. - Constitutional Vitals: Temp Pulse Resp BP Pulse Ox 98.2 F 73 17 106/62 93 10/28/17 16:10 10/28/17 16:10 10/28/17 16:10 10/28/17 16:10 10/28/17 16:10 - Respiratory Respiratory exam: Present: CTAB. Absent: accessory muscle use, rales, rhonchi, wheezes - Cardiovascular Cardiovascular exam: Present: RRR, +S1, +S2. Absent: diastolic murmur, gallop, rubs, systolic murmur Internal Medicine: Result - Labs CBC & Chem 7: 10/28/17 03:50 10/28/17 03:50 Labs: Short CBC 10/28/17 Range/Units 03:50 WBC 6.9 (4.3-11.1) K/mcL Hgb 11.9 L (12.9-16.9) g/dL Hct 36.3 L (37.5-50.1) % Plt Count 278 (140-400) K/mcL Neutrophils # 4.2 (1.6-8.9) K/mcL BMP 10/28/17 03:50 Sodium 142 Potassium 3.7 Chloride 105 Carbon Dioxide 25 BUN 18 Creatinine 1.23 Glucose 135 H Calcium 9.4 Cardiac Enzymes 10/27/17 10/28/17 10/28/17 Range/Units 21:51 03:50 09:13 Troponin I 0.01 0.01 0.01 (0-0.03) ng/mL Consult Discharge Plan - Plan Referrals: Goran Cobb MD [Primary Care Provider] -
[2017-10-29] MEDS: Insulin LISPRO 300 UNITS/3 ML VIAL SQ SCH ×4 (08:52→20:29)
[2017-10-29] MEDS: Aspirin Enteric Coated 81 MG Tablet PO SCH (09:34)
[2017-10-29] MEDS: Isosorbide MONOnitrate (24 HR) 60 MG TAB.ER.24H PO SCH (09:34)
[2017-10-29] MEDS: Gabapentin 300 MG CAPSULE PO SCH ×3 (09:34→20:28)
[2017-10-29] MEDS ORDERED: *HR* Heparin 10,000 UNIT/10 ML VIAL ONE (10:29)
[2017-10-29] MEDS ORDERED: Nitroglycerin 1,000 MCG/10 ML VIAL IV ONE ×2 (10:30→13:05)
[2017-10-29] MEDS ORDERED: 0.9 % Sodium Chloride 1,000 ML ONE ×2 (10:30→13:05)
[2017-10-29] MEDS: Beclomethasone 40mcg MDI IH SCH ×2 (10:43→21:09)
[2017-10-29] MEDS ORDERED: *HR* Midazolam HCl 2 MG/2 ML VIAL ONE (13:05)
[2017-10-29] MEDS ORDERED: *HR* FentaNYL (PF) 100 MCG/2 ML VIAL ONE (13:05)
--- NOTE | 2017-10-29 13:09 | Pre-Sedation Evaluation ---
Pre-sedation evaluation - Pre-sedation checklist Date of procedure: 10/29/17 Procedure: heart cath Recent Vitals: Last Vital Signs Temp 97.8 F 10/29/17 11:31 Pulse 87 10/29/17 11:31 Resp 16 10/29/17 11:31 BP 129/77 10/29/17 11:31 Pulse Ox 93 10/29/17 11:31 H&P (including ROS) documented in medical record: Yes Previous reaction to sedatives/anesthetics: No Dietary Status: NPO after Midnight Dentition: No loose teeth or bridges, full dentition ASA Classification *see protocol: CLASS II-Mild systemic disease Plan of Care: Pt appropriate candidate for procedure/moderate/conscious sedation , Risks/benefits of procedure/sedation discussed w/ patient/family
--- NOTE | 2017-10-29 13:23 | Internal Med Progress Note ---
Date of Encounter: 10/29/17 Time of Encounter: 11:00 - Assessment and plan (1) Chest pain Current Visit: Yes Status: Acute Qualifiers: Chest pain type: unspecified Qualified Code(s): R07.9 - Chest pain, unspecified (2) CAD (coronary artery disease) Current Visit: No Status: Chronic Qualifiers: Coronary Disease-Associated Artery/Lesion type: bypass graft [place] vs. transplanted heart: unspecified whether [place] or transplanted heart Associated angina: with unstable angina Qualified Code(s): I25.700 - Atherosclerosis of coronary artery bypass graft(s), unspecified, with unstable angina pectoris (3) HTN (hypertension) Current Visit: Yes Status: Chronic Qualifiers: Hypertension type: essential hypertension Qualified Code(s): I10 - Essential (primary) hypertension - Subjective Interval history: Patient comfortable this morning; awaiting possible stress test vs [facility]. - Constitutional Vitals: Temp Pulse Resp BP Pulse Ox 97.8 F 87 16 129/77 93 10/29/17 11:31 10/29/17 11:31 10/29/17 11:31 10/29/17 11:31 10/29/17 11:31 Internal Medicine: Result - Labs CBC & Chem 7: 10/28/17 03:50 10/28/17 03:50 - ABG Interpretation ABG results: PT/INR, D-dimer PT 11.0 Seconds (9.4-12.1) 10/29/17 09:46 - Impressions Impressions Echocardiogram 10/28/17 11:36 Impressions: LVEF 55%. Mild concentric left ventricular hypertrophy. Normal LV chamber size and function. Mild segmental left ventricular systolic dysfunction. Mild left ventricular diastolic dysfunction. Atypical septal motion consistent with post-operative status. Normal right ventricular structure and function. Unable to estimate RVSP due to lack of TR jet. No obvious significant valvular dysfunction. Left Ventricular Wall Motion: Rest Echo Findings The basal inferior wall was hypokinetic. All other wall segments showed normal motion. Findings: Study Quality * Technically adequate exam. ECG Findings * Normal sinus rhythm. Left Ventricle * LVEF 55%. * Normal LV chamber size and function. * Mild concentric left ventricular hypertrophy. * Mild segmental left ventricular systolic dysfunction. * Mild left ventricular diastolic dysfunction. * Atypical septal motion consistent with post-operative status. Right Ventricle * Normal right ventricular structure and function. Left Atrium * Normal left atrial size. Right Atrium * Normal right atrial size. Aortic Valve * Aortic valve not well visualized. * No aortic regurgitation. * No aortic stenosis. Mitral Valve * Mild mitral annular calcification * No mitral stenosis. * No mitral regurgitation. Tricuspid Valve * No tricuspid stenosis. * Unable to estimate RVSP due to lack of TR jet. * Grossly normal tricuspid valve structure and function. Pulmonic Valve * Pulmonic valve is not well visualized. * No pulmonic regurgitation. Aorta * Normally sized aortic root. Pericardium * The pericardium appears normal. IVC * The IVC is not well evaluated. Pulmonary Artery * Pulmonary artery not well visualized. Consult Discharge Plan - Plan Referrals: Goran Cobb MD [Primary Care Provider] -
[2017-10-29] MEDS ORDERED: Tirofiban 12.5 MG/250ML 12.5 MG/250 ML BAG ONE (13:49)
[2017-10-29] MEDS ORDERED: *HR* Ticagrelor 90 MG TABLET ONE (14:07)
[2017-10-29] MEDS ORDERED: Tirofiban 12.5 MG/250ML 12.5 MG/250 ML BAG IVC SCH (14:15)
--- NOTE | 2017-10-29 15:26 | Invasive Diagnostic Lab Proc ---
Name: Jovi Moncada Date of Study: 10/29/2017 Date: 1945 Ht: 70.1in Medical Record#: [id number] Age: 72 Wt: 233.69lb Gender: Male BSA: 2.23 Order #: [id number] BMI: 33.46 Physicians Procedure Physician: Carlos Mays MD, [facility] Referring MD: Goran Cobb MD Referring MD: Staff Name Position Time In April Thornton RT (R) Monitor 01:13 PM Olivia Jacques RT (R) Scrub 01:13 PM Lizet Abraham RN Tree Surgeon Helper 01:13 PM Indications Indication Coronary Artery Disease Procedures Performed Procedure L HRT ART/GRFT ANGIO PRQ CARD KARTIK STENT W/ANGIO 1 VSL Pre-Procedure Checklist Informed consent is complete signed and on chart. H&P is on chart. ID band is on and ID verified with patient. Patient NPO for procedure The procedure was described for the patient and questions were answered. Blood Pressure: 155/80 ECG is on chart. Rhythm: NSR Plan of Care Patient will tolerate the procedure without complications. Adequate level of comfort will be maintained. Hemodynamics will remain stable Patient will recover from procedure without complications. Respiratory function will be maintained. Cardiac rhythm will remain stable. Patient temperature will be maintained. Patient and/or family have verbalized understanding of the procedure. Patient Education Intravenous Access Time IV Size Location DC'd Fluid/Drip Rate Units RN 10:30 AM 18g 1 1/4" Patent On Arrival Rt Forearm 0.9NaCl 25 ml/hr Alexei Estrada RN Allergies lisinopril albuterol Vital Signs Time BP (mmHg) HR (bpm) O2 Sat. RR (bpm) LOC 10:31 AM 155 / 80 69 97 % 17 5 = Fully awake and oriented or at pre-proc level 01:14 PM / % 4 = Oriented but drowsy 02:29 PM 120 / 69 72 97 % 17 5 = Fully awake and oriented or at pre-proc level 02:45 PM 112 / 68 70 92 % 20 5 = Fully awake and oriented or at pre-proc level 03:00 PM 121 / 74 66 96 % 20 5 = Fully awake and oriented or at pre-proc level 03:15 PM 126 / 85 65 98 % 20 5 = Fully awake and oriented or at pre-proc level Procedural Medications Time Medication Dose Units Method Given By 01:14 PM Oxygen 2 L/min nasal cannula Lizet Abraham RN 01:14 PM Versed 2 mg Intravenous Lizet Abraham RN 01:14 PM Fentanyl 50 mcg Intravenous Lizet Abraham RN 01:23 PM Oxygen 4 L/min nasal cannula Lizet Abraham RN 01:23 PM Lidocaine 2% 20 ml Subcutaneous Carlos Mays MD, FACC 01:39 PM Heparin 4000 units Intravenous Lizet Abraham RN 01:49 PM Aggrastat Bolus: 54 ml Intravenous Lizet Abraham RN 01:51 PM Aggrastat 12.5mg/250ml 19.5 ml Intravenous Lizet Abraham RN 01:54 PM Nitroglycerin 100 mcg Intracoronary Lizet Abraham RN 02:02 PM Brillinta 180 mg Orally Lizet Abraham RN ASA Classification: CLASS II- Mild systemic disease (i.e. well-controlled diabetes, hypertension, asthma, cigarette smoking) Breanna Score Preprocedure Postprocedure Activity 2- Moves 4 extremities sustained head lift Activity 2- Moves 4 extremities sustained head lift Circulation 2- SBP +/= 20 points of pre-anesthetic level Circulation 2- SBP +/= 20 points of pre-anesthetic level Consciousness 2- Awake and alert oriented x 3 Consciousness 2- Awake and alert oriented x 3 O2 Saturation 2- Able to maintain O2 satruation of 92% on room air O2 Saturation 2- Able to maintain O2 satruation of 92% on room air Respiratory 2- Able to deep breathe and cough well Respiratory 2- Able to deep breathe and cough well Total Score 10 Total Score 10 Contrast Agent: Isovue Diagnostic Contrast: 120 ml Total Contrast: 120 ml Fluoro Dose: 1196 mGy Procedure Log Time Note Enter By 01:13 PM Pt arrived to labor commissioner 2 at 13:13 [email or web address] 01:13 PM April Thornton RT (R) Position: Monitor Time in: 13:13 [email or web address] 01:13 PM Olivia Jacques RT (R) Position: Scrub Time in: 13:13 [email or web address] 01:13 PM Lizet Abraham RN Position: Tree Surgeon Helper Time in: 13:13 [email or web address] 01:13 PM Patient charges- Angio tray pack, Navilyst 3mm J, Pulse Oximetry and ACIST tubing and transducer [email or web address] 01:13 PM Case Delayed No [email or web address] :13 PM Hair removed from procedure site in holding area using clippers. Bilateral groin prepped with Chloraprep by Krupa Chapman MD, [facility], safety strap applied then patient was draped. Skin intact. [email or web address] 01:14 PM Physician arrived 13:14 [email or web address] :14 PM Meet and gloria completed [email or web address] 01:14 PM ASA Class CLASS II- Mild systemic disease (i.e. well-controlled diabetes, hypertension, asthma, cigarette smoking) [email or web address] 01:14 PM Sign in performed according to hospital policy. [email or web address] 01:14 PM Procedure start 13:14 [email or web address] :14 PM Time: 13:14 Oxygen on at 2 L/min per nasal cannula by Lizet Abraham RN [email or web address] :14 PM Time: 13:14 Versed 2 mg Intravenous Given by Lizet Abraham RN [email or web address] 01:14 PM Time: 13:14 Fentanyl 50 mcg Intravenous Given by Lizet Abraham RN [email or web address] 01:14 PM Time: 13:14 Patient comfortable and pain free: Yes [email or web address] 01:14 PM Time: 13:14LOC: 4 = Oriented but drowsy [email or web address] :22 PM Time out performed according to hospital policy 3 :23 PM Time: 13:23 Oxygen on at 4 L/min per nasal cannula by Lizet Abraham RN [email or web address] :23 PM Time: 13:23 20 ml Lidocaine 2% to right groin Subcutaneous Given by Carlos Mays MD, [email or web address] 01:24 PM Access obtained by percutaneous puncture. 5Fr 10cm Terumo [place] sheath placed in right Femoral artery. [id number] [email or web address] 01:25 PM 5Fr FR 4 catheter inserted over the wire [facility] 3 :25 PM 0.035 145cm Navilyst 3mmJ wire [id number] y3 01:26 PM SVG to the RPDA angio performed in multiple views. [email or web address] 01:30 PM SVG to the 1st OM angio performed in multiple views. [email or web address] 01:30 PM RCA angiography performed in multiple views. [email or web address] 01:30 PM 0.035 260cm Navilyst 3mmJ wire [id number] [email or web address] 01:31 PM 5Fr IM catheter inserted over the wire [id number] [email or web address] 01:32 PM Left MARLO to the LAD angio performed in multiple views. [email or web address] 01:34 PM Catheter removed [email or web address] 01:34 PM 5Fr FL 4 catheter inserted over the wire DN [email or web address] 01:34 PM LCA angiography performed in multiple views. [email or web address] 01:36 PM Lesion found in Mid RCA. Pre Stenosis: 100 Pre RUTHIE Flow: [email or web address] 01:36 PM Lesion found in Proximal LAD. Pre Stenosis: 90 Pre RUTHIE Flow: [email or web address] 01:36 PM Lesion found in Mid LAD. Pre Stenosis: 100 Pre RUTHIE Flow: [email or web address] 01:36 PM Lesion found in Mid Circumflex. Pre Stenosis: 90 Pre RUTHIE Flow: [email or web address] 01:37 PM Lesion found in 1st Marginal. Pre Stenosis: 95 Pre RUTHIE Flow: [email or web address] 01:37 PM Catheter removed [email or web address] 01:37 PM 5Fr Pigtail catheter inserted over the wire [facility] [email or web address] 01:37 PM Catheter selectively placed in left ventricle [email or web address] 01:38 PM Bolus angiogram of left Ventricle complete: 10 ml/sec for a total of 20 mls [email or web address] 01:39 PM Time: 13:39 Heparin 4000 units Intravenous Given by Lizet Abraham RN [email or web address] 01:39 PM Catheter removed [email or web address] 01:40 PM 6Fr RBL 3.5 Convey guide catheter was used to cannulate the PCI vessel successfully. reused? No [email or web address] 01:40 PM .014 [place] 190cm guide wire across target lesion- successful. reused? No [email or web address] 01:40 PM Inflation device was opened. [email or web address] 01:40 PM 2.0 mm x 20 mm Emerge Monorail balloon across target lesion- successful. reused? No [email or web address] 01:44 PM Balloon inflated @ 14 donell for 20 seconds [email or web address] 01:46 PM Balloon catheter removed intact. [email or web address] 01:47 PM 2.75mm x 24mm Synergy drug-eluting stent across target lesion- successful Lot #[id number] [email or web address] 01:48 PM Stent delivery system removed intact. [email or web address] 01:49 PM 2.75 mm x 20mm NC Trek Rx balloon across target lesion- successful. reused? No [email or web address] 01:49 PM Time: 13:49 Aggrastat Bolus: 54 ml Intravenous Given by Lizet Abraham RN Gee pump [email or web address] 01:49 PM Balloon inflated @ 14 donell for 20 seconds [email or web address] 01:50 PM Balloon catheter removed intact. [email or web address] 01:50 PM Stent re-inserted. [email or web address] 01:51 PM Time: 13:51 Aggrastat 12.5mg/250ml 19.5 ml Intravenous Given by Lizet Abraham RN Gee pump [email or web address] 01:52 PM Stent deployed @ 16 donell for 32 seconds [email or web address] 01:52 PM Stent delivery system removed intact. [email or web address] 01:53 PM 3.0 mm x 15mm NC Trek Rx balloon across target lesion- successful. reused? No [email or web address] 01:54 PM Time: 13:54 Nitroglycerin 100 mcg Intracoronary Given by Lizet Abraham RN [email or web address] 01:57 PM Balloon inflated @ 2 donell for 8 seconds [email or web address] 01:58 PM Balloon inflated @ 12 donell for 10 seconds [email or web address] 01:59 PM Balloon inflated @ 18 donell for 17 seconds [email or web address] 02:00 PM Balloon catheter removed intact. [email or web address] 02:00 PM Guide wire removed intact. [email or web address] 02:01 PM Guide wire removed intact. [email or web address] 02:01 PM Bolus angiogram of right Femoral complete: 4 ml/sec for a total of 7 mls [email or web address] 02:02 PM Time: 14:02 Brillinta 180 mg Orally Given by Lizet Abraham RN [email or web address] 02:03 PM Procedure completed at 14:22 [email or web address] 02:23 PM Sign out completed: Radiation Dose 1196.36 mGy Fluoro Time: 12.2 Isovue 370 - 200ml contrast 120 ml given by Carlos Mays MD, [facility]. Complications: NoneCardiac Rehab Consult needed: YesConfirmed administered medications: Yes [email or web address] 02:23 PM Isovue 370 - 200ml,1 Bottle(s) used. [email or web address] 02:23 PM Arterial sheath pulled, Mynx closure device used and was Successful S/N. [email or web address] 02:23 PM Estimated Blood Loss: minimal [email or web address] 02:23 PM Post ECG NSR [email or web address] 02:23 PM Post Blood Pressure 116/67 [email or web address] 02:23 PM 14:23 Post Pulses Bilateral DP & PT [email or web address] 02:23 PM Information taught Cardiac Cath, PCI, and Mynx [email or web address] 02:23 PM Education needs Procedure, Plan of Care, and Disease Process [email or web address] 02:23 PM Learning barriers :None [email or web address] 02:23 PM Education Methods Verbal [email or web address] 02:23 PM Education evaluation Able to repeat information [email or web address] 02:24 PM Site status No bleeding/hematoma - Rt Groin as reported by Olivia Jacques RT (R) at 14:23 [email or web address] 02:24 PM Opsite applied [email or web address] 02:24 PM Report given to Elijah SWEENEY Pt taken to Holding room Room #4. 14:24 [email or web address] 02:24 PM Delay to floor No [email or web address] 02:24 PM Family placed in consult room. [email or web address] 02:24 PM Complications: None [email or web address] 02:24 PM Fluoro Time: 12.2 [email or web address] 02:24 PM Isovue 370 - 200ml contrast 120 ml given by Carlos Mays MD, [facility]. [email or web address] 02:24 PM Radiation Dose 1196.36 mGy [email or web address] 02:32 PM Report given to Carmen SWEENEY Pt taken to 2A Room #47. 14:32 [email or web address] 03:17 PM Complications: None [email or web address] 03:17 PM Patient out of room: 15:17 kwitte Complications Complication None None None Hemodynamics Pressures Site Systolic/A Wave Diastolic/V Wave Mean AO 58 45 52 AO 93 58 73 AO 88 62 75 LV 109 3 31 LV 111 3 9 Post Procedure Information Blood Pressure: 116/67 mmHg Rhythm: NSR Post procedural instructions were given Closure Device Time Device Success/Fail 10/29/2017 2:07:00 PM MynxGrip Successful Site Checks Time Location Status Staff Sheath In? Note 02:23 PM Rt Groin No bleeding/hematoma Olivia Jacques RT (R) 02:28 PM Rt Groin No bleeding/ No Hematoma Sophie Webber RN 02:45 PM Rt Groin No bleeding/ No Hematoma Elijah Schultz RN 03:00 PM Rt Groin No bleeding/ No Hematoma Elijah Schultz RN 03:15 PM Rt Groin No bleeding/ No Hematoma Elijah Schultz RN Pulses Time Site Pre-Procedure Post-Procedure Note 10/29/2017 10:31:00 AM Bilateral DP 2+ 2+ 10/29/2017 10:31:00 AM Bilateral radial 2+ 2:23:00 PM Bilateral DP & PT 10/29/2017 2:28:00 PM Bilateral DP & PT 2+ 10/29/2017 2:55:00 PM Bilateral DP & PT 2+ 10/29/2017 3:15:00 PM Bilateral DP & PT 2+ Updated by Elijah Schultz RN on 10/29/2017 3:17:55 PM Elijah Schultz RN electronically signed on 10/29/2017 3:18:20 PM with status of Final
--- NOTE | 2017-10-29 18:37 | Electrocardiograph Report ---
[address] [place] [id number] Test Date: 2017-10-28 Pat Name: Jovi Moncada Department: 112 Room: 2A47 Gender: M Acid Conditioner: VIDHYA : 1945 Requested By: Brandin Davison Order Number: [id number] Reading MD: Anthony Hayes DO Measurements Intervals Motley Rate: 81 P: 28 MO: 196 QRS: -61 QRSD: 118 T: 24 QT: 400 QTc: 438 Interpretive Statements SINUS RHYTHM NONSPECIFIC ST-T CHANGES INFERIOR MYOCARDIAL INFARCTION, PROBABLY OLD WITH POSTERIOR EXTENSION Electronically Signed On 10-29-2017 18:35:50 EST by Anthony Hayes DO
--- NOTE | 2017-10-29 18:40 | Internal Med Progress Note ---
Date of Encounter: 10/29/17 Time of Encounter: 12:00 - Assessment and plan (1) Chest pain Current Visit: Yes Status: Acute Assessment and plan: -Cardiology consulted with recommendations for [facility]. Qualifiers: Chest pain type: unspecified Qualified Code(s): R07.9 - Chest pain, unspecified (2) CAD (coronary artery disease) Current Visit: No Status: Chronic Assessment and plan: -Continue home medications Qualifiers: Coronary Disease-Associated Artery/Lesion type: bypass graft [place] vs. transplanted heart: unspecified whether [place] or transplanted heart Associated angina: with unstable angina Qualified Code(s): I25.700 - Atherosclerosis of coronary artery bypass graft(s), unspecified, with unstable angina pectoris (3) HTN (hypertension) Current Visit: Yes Status: Chronic Assessment and plan: Continue home medications Qualifiers: Hypertension type: essential hypertension Qualified Code(s): I10 - Essential (primary) hypertension - Subjective Interval history: Patient comfortable this morning; awaiting [facility]. Chest pain has resolved. - Constitutional Vitals: Temp Pulse Resp BP Pulse Ox 97.3 F L 64 16 130/79 98 10/29/17 15:28 10/29/17 16:55 10/29/17 16:55 10/29/17 16:55 10/29/17 16:55 - Cardiovascular Cardiovascular exam: Present: RRR, +S1, +S2. Absent: diastolic murmur, gallop, rubs, systolic murmur - GI/Abdominal GI/Abdominal exam: Present: normal bowel sounds, soft, no peritoneal signs. Absent: distended, tenderness Internal Medicine: Result - Labs CBC & Chem 7: 10/28/17 03:50 10/28/17 03:50 - ABG Interpretation ABG results: PT/INR, D-dimer PT 11.0 Seconds (9.4-12.1) 10/29/17 09:46 - Impressions Impressions Echocardiogram 10/28/17 11:36 Impressions: LVEF 55%. Mild concentric left ventricular hypertrophy. Normal LV chamber size and function. Mild segmental left ventricular systolic dysfunction. Mild left ventricular diastolic dysfunction. Atypical septal motion consistent with post-operative status. Normal right ventricular structure and function. Unable to estimate RVSP due to lack of TR jet. No obvious significant valvular dysfunction. Left Ventricular Wall Motion: Rest Echo Findings The basal inferior wall was hypokinetic. All other wall segments showed normal motion. Findings: Study Quality * Technically adequate exam. ECG Findings * Normal sinus rhythm. Left Ventricle * LVEF 55%. * Normal LV chamber size and function. * Mild concentric left ventricular hypertrophy. * Mild segmental left ventricular systolic dysfunction. * Mild left ventricular diastolic dysfunction. * Atypical septal motion consistent with post-operative status. Right Ventricle * Normal right ventricular structure and function. Left Atrium * Normal left atrial size. Right Atrium * Normal right atrial size. Aortic Valve * Aortic valve not well visualized. * No aortic regurgitation. * No aortic stenosis. Mitral Valve * Mild mitral annular calcification * No mitral stenosis. * No mitral regurgitation. Tricuspid Valve * No tricuspid stenosis. * Unable to estimate RVSP due to lack of TR jet. * Grossly normal tricuspid valve structure and function. Pulmonic Valve * Pulmonic valve is not well visualized. * No pulmonic regurgitation. Aorta * Normally sized aortic root. Pericardium * The pericardium appears normal. IVC * The IVC is not well evaluated. Pulmonary Artery * Pulmonary artery not well visualized. Consult Discharge Plan - Plan Referrals: Goran Cobb MD [Primary Care Provider] - (SENT WEB REQUEST ON 10-29-17 @ [id number])
[2017-10-29] MEDS: *HR* Ticagrelor 90 MG TABLET PO SCH (20:29)
[2017-10-30] MEDS: Insulin LISPRO 300 UNITS/3 ML VIAL SQ SCH ×2 (09:37→12:33)
[2017-10-30] MEDS: Aspirin Enteric Coated 81 MG Tablet PO SCH (09:51)
[2017-10-30] MEDS: *HR* Ticagrelor 90 MG TABLET PO SCH (09:51)
[2017-10-30] MEDS: Gabapentin 300 MG CAPSULE PO SCH (09:51)
[2017-10-30] MEDS: Isosorbide MONOnitrate (24 HR) 60 MG TAB.ER.24H PO SCH (09:51)
--- NOTE | 2017-10-30 10:51 | Cardiology Progress Note ---
Date of Encounter: 10/30/17 Time of Encounter: 08:30 Assessment and Plan (1) Chest pain Current Visit: Yes Status: Acute Per cardiology: -C/o intermittent chest pain for six weeks increasing in severity and frequency. Symptoms associated with SOB, fatigue and diaphoresis. -Symptoms ongoing despite medication changes. -S/p [facility] yesterday with unofficial report reviewed with KARTIK to circumflex artery. -ON asa, brilinta, beta jacques, and statin. -Educated on importance of dual anti-platelet therapy uninterrupted for at least one year. Patient states understanding. -Right groin site without hematoma or ecchymosis. Right groin site management education provided to patient and family. Patient states understanding. -TTE with LVEF preserved, no segmental wall motion abnormalities. -Denies chest pain overnight. -Cardiology will sign off and will follow in outpatient setting. Follow up set. -Brilinta assistance card given to patient. Qualifiers: Chest pain type: unspecified Qualified Code(s): R07.9 - Chest pain, unspecified (2) CAD (coronary artery disease) Current Visit: No Status: Chronic Per cardiology: -H/o 3V CABG 04/2017. (OMER to LAD, SVG to OM1, SVG to PDA). -Continue asa, statin, and bb, brilinta. -Previous cardiac testing: [facility] 04/11/17: EF 50%. There is a 70% stenosis in the Proximal LAD. 95% stenosis in the Mid LAD. 90% stenosis in the Mid Circumflex. 80% stenosis in the high 1st Marginal. 100% stenosis in the Mid RCA. -Will continue to follow in outpateint setting. Follow up set. Qualifiers: Coronary Disease-Associated Artery/Lesion type: bypass graft [place] vs. transplanted heart: unspecified whether [place] or transplanted heart Associated angina: with unstable angina Qualified Code(s): I25.700 - Atherosclerosis of coronary artery bypass graft(s), unspecified, with unstable angina pectoris Discussion w patient/family: The assessment and plan as outlined above was discussed with the patient and/or family members who expressed understanding and agreement. All questions were answered. Thank you for involving us in the care of your patient. Please call with any questions. Discussed and reviewed with . RISK FACTORS: STOP SMOKING: If you smoke, STOP. Smoking or tobacco use significantly increases your risk of heart disease because nicotine causes the arteries to narrow or constrict. It also causes fats to stick to the artery. Your chances of having a heart attack are greatly increased if you continue to smoke. For more information, call the education line for smoking cessation [id number] EAT A LOW FAT/CHOLESTEROL/SODIUM DIET: This diet may help reduce your chances of having a heart attack. LIFTING: Avoid lifting anything more than 10 pounds for 5-7 days Prior to straining, laughing, sneezing and/or coughing, apply manual pressure directly over insertion site. ACTIVITY: You may walk or climb stairs as tolerated You can resume sexual activity as tolerated In general, you are encouraged to engage in a minimum of 30 minutes or more of moderate intensity physical activity, such as brisk walking, daily or at least 3 -4 times weekly BATHING Do not submerge the site into water (bath tub, hot tub, swimming pool) for 1 week. This can be a source for infection into the blood stream. You may shower after 24 hours SITE CARE: After 24 hours, you may remove the dressing and leave the site open to air. Keep the site clean and dry. Clean gently and pat dry. You can expect bruising and tenderness that gradually resolve within a week or two. Return to work as instructed per your physician Resume driving as instructed per physician Keep all scheduled follow up appointments Resume medications as instructed IMPORTANT: If prescribed a Platelet Aggregation Inhibitor such as, Plavix, Brilinta or Effient: Duration of therapy is minimum one year These medications are often used in combination with Aspirin in prevention of future heart attacks Never discontinue unless consult with your [facility] Director STROKE (CVA) Risk factors for a stroke are: Age, cigarette smoking, diabetes, excessive alcohol consumption, family history, high blood pressure, overweight, physical inactivity, prior stroke, heart attack, diagnosis of carotid artery stenosis or other artery disease. Warning signs: Sudden numbness or weakness of the face, arm or leg; especially on one side of the body, sudden confusion, trouble speaking or understanding, sudden trouble seeing in one or both eyes, sudden trouble walking, dizziness, loss of balance or coordination, sudden severe headache with no cause. Call 911 or go to the Emergency Room. CONGESTIVE HEART FAILURE: If you have been diagnosed with Congestive Heart Failure (CHF) and your symptoms return, make an appointment with your physician Weigh yourself daily. Notify your physician if you have a weight gain of two or more pounds in one day or five or more pounds in one week. If you experience any difficulty breathing, please call 911 BLEEDING: Although the risk of bleeding is minimal, it can happen. If you have any bleeding from the site, apply firm pressure above the puncture site for 10-15 minutes. If the bleeding does not stop, continue manual pressure and call 911 Contact your physician if: You develop a fever greater than 101 degrees Fahrenheit Your site becomes reddened or has any drainage You have an increase in pain or burning at the site or if a large knot forms at the site. If you experience chest pain, shortness of breath, dizziness, or extreme tiredness, stop the activity and rest. Please notify your physicians office if you experience any of these symptoms and they are not relieved by rest please call 911! Subjective Principal diagnosis: chest pain Interval history: Patient denies chest pain overnight. Patient denies issues walking or using right leg. Objective Vital Signs, Last 4 Hours Temp Pulse Resp BP Pulse Ox 10/30/17 07:05 97.5 F L 63 16 135/78 94 General: Conversant, No Apparent Distress HEENT: Atraumatic, Normocephaly, Mucus Membranes Moist Neck: No JVD, Normal carotid pulses Cardiac: Reg Rate and Rhythm, Normal S1 and S2, No Murmur Lungs: Normal Breath Sounds, No Wheeze, Rales, Rhonchi Neuro: Alert and responsive, No focal deficits noted Abdomen: Soft, Non-Tender Skin: No rashes noted on visualized skin, Other (Right groin access site without hematoma or ecchymosis. ) Musculoskeletal: No Chest Wall Tenderness Extremities: No Clubbing, No Cyanosis, No Edema, Normal Pulses Results 10/28/17 03:50 10/28/17 03:50 Impressions Echocardiogram 10/28/17 11:36 Impressions: LVEF 55%. Mild concentric left ventricular hypertrophy. Normal LV chamber size and function. Mild segmental left ventricular systolic dysfunction. Mild left ventricular diastolic dysfunction. Atypical septal motion consistent with post-operative status. Normal right ventricular structure and function. Unable to estimate RVSP due to lack of TR jet. No obvious significant valvular dysfunction. Left Ventricular Wall Motion: Rest Echo Findings The basal inferior wall was hypokinetic. All other wall segments showed normal motion. Findings: Study Quality * Technically adequate exam. ECG Findings * Normal sinus rhythm. Left Ventricle * LVEF 55%. * Normal LV chamber size and function. * Mild concentric left ventricular hypertrophy. * Mild segmental left ventricular systolic dysfunction. * Mild left ventricular diastolic dysfunction. * Atypical septal motion consistent with post-operative status. Right Ventricle * Normal right ventricular structure and function. Left Atrium * Normal left atrial size. Right Atrium * Normal right atrial size. Aortic Valve * Aortic valve not well visualized. * No aortic regurgitation. * No aortic stenosis. Mitral Valve * Mild mitral annular calcification * No mitral stenosis. * No mitral regurgitation. Tricuspid Valve * No tricuspid stenosis. * Unable to estimate RVSP due to lack of TR jet. * Grossly normal tricuspid valve structure and function. Pulmonic Valve * Pulmonic valve is not well visualized. * No pulmonic regurgitation. Aorta * Normally sized aortic root. Pericardium * The pericardium appears normal. IVC * The IVC is not well evaluated. Pulmonary Artery * Pulmonary artery not well visualized. Active Medications Acetaminophen (Tylenol) 650 mg PO Q6H PRN PRN Reason: Pain Stop: 04/28/18 22:34 Allopurinol (Zyloprim) 300 mg PO DAILY [facility] Stop: 04/29/18 09:01 Last Admin: 10/30/17 09:51 Dose: 300 mg Aspirin (Aspirin Ec) 81 mg PO DAILY [facility] Stop: 04/29/18 01:46 Last Admin: 10/30/17 09:51 Dose: 81 mg Atorvastatin Calcium (Lipitor) 80 mg PO HS ANDREW Stop: 04/29/18 21:01 Last Admin: 10/29/17 20:29 Dose: 80 mg Beclomethasone Dipropionate (Qvar 40 Mcg) 1 puff IH BIDR [facility] Stop: 04/29/18 10:01 Last Admin: 10/29/17 21:09 Dose: 1 puff Carvedilol (Coreg) 6.25 mg PO BIDWM ANDREW PRN Reason: Protocol Stop: 04/29/18 01:31 Last Admin: 10/30/17 09:51 Dose: 6.25 mg Dextrose/Water (Dextrose 50% (Syg)) 25 ml IVP AD PRN PRN Reason: Hypoglycemia Stop: 04/28/18 21:42 Gabapentin (Neurontin) 600 mg PO TID [facility] Stop: 04/29/18 09:01 Last Admin: 10/30/17 09:51 Dose: 600 mg Glucagon (Glucagen) 1 mg IM ONCE PRN PRN Reason: Hypoglycemia Stop: 04/28/18 21:42 Glucose (Gluctose) 15 gm PO ONCE PRN PRN Reason: Hypoglycemia Stop: 04/28/18 21:42 Glucose (Gluctose) 30 gm PO ONCE PRN PRN Reason: Hypoglycemia Stop: 04/28/18 21:42 Dextrose (Dextrose 5%) 1,000 mls @ 100 mls/hr IVC .Q10H PRN PRN Reason: HYPOGLYCEMIA Stop: 04/28/18 21:42 Insulin Human Lispro (Humalog) 0 units SQ TIDAC [facility] PRN Reason: Protocol Stop: 04/29/18 07:31 Last Admin: 10/30/17 09:37 Dose: Not Given Insulin Human Lispro (Humalog) 0 units SQ HS [facility] PRN Reason: Protocol Stop: 04/29/18 21:01 Last Admin: 10/29/17 20:29 Dose: Not Given Isosorbide Mononitrate (Imdur) 60 mg PO DAILY [facility] Stop: 04/29/18 09:01 Last Admin: 10/30/17 09:51 Dose: 60 mg Levalbuterol HCl (Xopenex) 1 puff IH Q4H PRN PRN Reason: Shortness Of Breath Stop: 04/28/18 21:37 Losartan Potassium (Cozaar) 50 mg PO DAILY [facility] PRN Reason: Protocol Stop: 04/29/18 09:01 Last Admin: 10/30/17 09:50 Dose: 50 mg Montelukast Sodium (Singulair) 10 mg PO [facility] Stop: 04/29/18 21:01 Last Admin: 10/29/17 20:29 Dose: 10 mg Naloxone HCl (Narcan) 0.4 mg IVP Q2MIN PRN PRN Reason: Opioid Reversal Stop: 04/28/18 21:39 Nitroglycerin (Nitroglycerin) 0.4 mg SL Q5M PRN PRN Reason: Chest Pain Stop: 04/28/18 21:37 Last Admin: 10/28/17 01:29 Dose: 0.4 mg Omeprazole (Prilosec) 40 mg PO BID [facility] Stop: 04/29/18 09:01 Last Admin: 12/21/17 09:51 Dose: 40 mg Ticagrelor (Brilinta) 90 mg PO BID ANDREW Stop: 04/30/18 21:01 Last Admin: 10/30/17 09:51 Dose: 90 mg Tramadol HCl (Ultram) 75 mg PO Q6H PRN PRN Reason: Pain Laboratory Tests 10/27/17 10/27/17 10/27/17 19:52 19:52 21:51 Hgb Creatinine 1.29 H Troponin I 0.01 0.01 10/28/17 10/28/17 10/28/17 03:50 03:50 03:50 Hgb 11.9 L Creatinine 1.23 Troponin I 0.01 10/28/17 09:13 Hgb Creatinine Troponin I 0.01 - Imaging and Cardiology Chest Xray: report reviewed Echo: report reviewed Cardiac cath: report reviewed - EKG Interpretation EKG results cardiology: other (Telemetry reviewed with average HR previous 12 hours noted to be 65, sinus rhythm. PACs noted.) Consult Discharge Plan - Plan Referrals: Goran Cobb MD [Primary Care Provider] - (SENT WEB REQUEST ON 10-29-17 @ 0974)
[2017-10-30] MEDS: Beclomethasone 40mcg MDI IH SCH (10:53)
[2017-10-30 11:28] VITALS: BP 114/68
[2017-10-30 11:42] LABS: BUN/Creatinine Ratio 19 (6-26); Blood Urea Nitrogen 22 mg/dL (8-23); Calcium 9.2 mg/dL (8.6-10.3); Carbon Dioxide 26 mEq/L (23-29); Chloride 107 mEq/L (98-107); Glucose 183 mg/dL (70-105); Osmolality,Calculated 298 (280-300); Potassium 3.6 mEq/L (3.5-5.1); Sodium 140 mEq/L (136-145); eGFR For African Americans > 60 (> 60); eGFR For Non-African Americans > 60 (> 60)
--- NOTE | 2017-10-30 15:07 | Discharge Summary ---
Date of Encounter: 10/30/17 Time of Encounter: 12:00 - Discharge Diagnosis (1) Chest pain Priority: Primary Status: Acute Qualifiers: Chest pain type: unspecified Qualified Code(s): R07.9 - Chest pain, unspecified (2) CAD (coronary artery disease) Priority: Secondary Status: Chronic Qualifiers: Coronary Disease-Associated Artery/Lesion type: bypass graft [place] vs. transplanted heart: unspecified whether [place] or transplanted heart Associated angina: with unstable angina Qualified Code(s): I25.700 - Atherosclerosis of coronary artery bypass graft(s), unspecified, with unstable angina pectoris (3) HTN (hypertension) Priority: Secondary Status: Chronic Qualifiers: Hypertension type: essential hypertension Qualified Code(s): I10 - Essential (primary) hypertension - Discharge Medications Prescriptions: Ticagrelor [Brilinta] 90 mg PO BID #60 tablet Home Medications: Allopurinol [Zyloprim 300 MG] 300 mg PO DAILY 01/18/16 [History] Colestipol HCl [Colestid] 1.5 gm PO DAILY PRN 01/18/16 [History] Gabapentin [Neurontin] 600 mg PO TID 01/18/16 [History] Meloxicam [Mobic] 15 mg PO DAILY 01/18/16 [History] Metformin HCl [Glucophage] 1,000 mg PO BID 01/18/16 [History] Montelukast [Singulair] 10 mg PO HS 01/18/16 [History] Omeprazole [PriLOSEC] 40 mg PO BID 01/18/16 [History] Glimepiride [Amaryl] 4 mg PO QAM 12/06/16 [History] Dicyclomine [Bentyl] 10 - 20 mg PO QID 04/11/17 [History] Glimepiride [Amaryl] 2 mg PO QPM 04/11/17 [History] Nitroglycerin [Nitrostat] 0.4 mg SL Q5M PRN 04/11/17 [History] Aspirin Enteric Coated [Aspirin EC] 81 mg PO DAILY tablet. 04/22/17 [Rx] Atorvastatin [Lipitor] 80 mg PO HS #30 tablet 04/22/17 [Rx] Budesonide [Pulmicort Flexhaler 90mcg] 2 puff IH BID 07/01/17 [History] Furosemide [Lasix] 40 mg PO DAILY 07/01/17 [History] Potassium Chloride [K-Tab ER] 20 meq PO DAILY 07/01/17 [History] Tramadol HCl/Acetaminophen [Ultracet Tablet] 2 each PO Q6H PRN 07/01/17 [History ] Losartan [Cozaar] 50 mg PO DAILY 07/07/17 [History] Carvedilol [Coreg] 6.25 mg PO BIDWM 10/27/17 [History] Ferrous Sulfate 325 mg PO DAILY 10/27/17 [History] Levalbuterol Tartrate [Xopenex Hfa] 1 puff IH Q4H PRN 10/27/17 [History] Ticagrelor [Brilinta] 90 mg PO BID #60 tablet 10/30/17 [Rx] Allergies/Adverse Reactions: 3 Allergy/AdvReac Type Severity Reaction Status Date / Time lisinopril AdvReac Intermediate Cough Verified 10/27/17 18:11 albuterol Allergy Severe See Uncoded 10/27/17 18:11 Comments Procedures/tests Complete & Pending: Procedures Performed prior 72 hours Category Date Time Status CL Cardiac Catheterization [CL] Routine Utility Bill [employer]or 10/29/17 08:00 Ordered EKG [ECG 12 lead ECG] [ECG] Stat Y 10/28/17 10:36 Completed EV echocardiogram Routine Y 10/28/17 11:36 Completed Date of admission: 10/27/17 21:23 Primary care physician: Goran Cobb MD Consults: 10/27/17 21:42 Consult to Cardiology [CONS] Routine Comment: Consulting Provider: Cardiology Jillian Reason for Consult: Dr vizcarra rec admission for co-management Call Completed: No 10/29/17 14:11 Consult to Cardiac Rehabilitation-Phase1 [CONS] Routine Comment: Reason for Consult: post op cath Call Completed: Yes - Patient Status Disposition: Home, Self-Care Condition: Fair - Discharge Instructions Follow Up With: Goran Cobb MD [Primary Care Provider] - 11/06/17 1:15 pm () Hospital course: Patient is a 72 year old male who presented to ER on 10/27/17 with subacute onset CP. He has CAD and s/p CABG in april [address] [place] and has been medically managed by Dr Vizcarra of cardiology. He has been having unstable angina type symptoms for the last 1 month, on and off. Dr Vizcarra has been attempting to optimize cardiac meds but to little avail. He reports CP may not be related to exertion. When it comes on, it would be sternal in nature, 5-6/10, sharp and pressure like sensation. Relieved with nitro. Radiation to jaw. Lasting for hours on several occasions. He has been feeling tired. C/o intermittent chest pain for six weeks increasing in severity and frequency. Symptoms associated with SOB, fatigue and diaphoresis. Patient was admitted to the medical floor for ACS rule out. The patients hospital stay, cardiology was consulted with recommendations for left heart catheter status post KARTIK to circumflex artery. TTE with LVEF preserved, no segmental wall motion abnormalities. Cardiology recommendation to continue asa, brilinta, beta jacques, and statin. Patient will be discharged to follow with cardiology as outpatient. - Time Spent with Patient Total time spent providing and/or coordinating discharge services: Less than 30 minutes - Constitutional Vitals: Temp Pulse Resp BP Pulse Ox 98.1 F 70 16 114/68 97 10/30/17 11:27 10/30/17 11:27 10/30/17 11:27 10/30/17 11:27 10/30/17 11:27 - Respiratory Respiratory exam: Present: CTAB. Absent: accessory muscle use, rales, rhonchi, wheezes - Cardiovascular Cardiovascular exam: Present: RRR, +S1, +S2. Absent: diastolic murmur, gallop, rubs, systolic murmur
== END 2017-10-30 16:52 | disposition home or self-care (01) ==
LOC: 2ANU 17:59 → EMEROO 17:59 → SUATTDRO 21:23 → 2ANU 21:46 → 2NNU 10-29 14:09 → 2ANU 10-29 14:10
PROVIDERS: ADMIT Internal Medicine Hematology & Oncology; ATTEND Hospitalist